=== PATIENT | female | born 1965 | race Caucasian/White ===

== ENCOUNTER → 2016-06-01 | Outpatient (CLI) | payer OTHER ==
[~2016-06-01] MED LIST: ALBUAER19 INH; BUPR-102 PO; CLIN300C2 PO; DOXY100C76 PO; HYDR-5688 PO; LINA1CAP2 PO; MOME200A INH; OXGN; PRVHFAIN INH; SPRIN/30 INH; TIOTCAP INH; TOPI200T14 PO
--- NOTE | 2016-06-01 10:18 | DIAGNOSTIC IMAGING REPORT ---
TWO VIEW CHEST CLINICAL HISTORY: Cough. Lung cancer. FINDINGS: PA and lateral chest radiographs are compared to study dated 08/07/2015 and correlated with chest CT dated 08/13/2015. The PA view is degraded by patient rotation. The cardiomediastinal silhouette is unremarkable. Emphysema and chronic interstitial thickening is identified. There are postoperative changes from right-sided pulmonary resection, with volume loss in the right lung and hyperexpansion of the left lung. A large calcified granuloma in the right lower lung is unchanged. There is no airspace consolidation, pleural effusion, or pneumothorax. The skeletal structures are osteopenic. The bony thorax appears intact. An IVC filter is partially imaged in the upper abdomen. IMPRESSION: 1. No active disease in the chest. 2. Emphysema and postoperative changes from right-sided pulmonary resection. This is similar to previous. Electronically signed by: David Veronica M.D. 06/01/2016 10:16 AM Dictated Date/Time: 06/01/2016 10:14 AM
== END | disposition home or self-care (01) ==
LOC: C.RAD1850 10:01
PROVIDERS: ATTEND Internal Medicine
DX: R05 Cough (principal)

== ENCOUNTER → 2016-06-17 | Outpatient (CLI) | payer OTHER ==
--- NOTE | 2016-06-17 13:07 | DIAGNOSTIC IMAGING REPORT ---
FUSION CT SINUSES W/O CLINICAL HISTORY: Nasal septal deviation. Terminal hypertrophy. COMPARISON STUDY: No previous studies for comparison. FINDINGS: There are postsurgical changes of a left frontotemporal craniotomy. There is subjacent encephalomalacia with compensatory dilatation of the left lateral ventricle. The mastoid air cells appear symmetrically aerated. The middle ear cavities appear symmetrically aerated. There are no air-fluid levels to indicate acute sinusitis. There is no evidence of significant mucosal thickening within the maxillary sphenoid ethmoid and frontal sinuses. There are tiny bilateral Jessica cells. The ostiomeatal units are patent bilaterally. There is mild nasal septal deviation to the right. Each olfactory fossa is a depth of 5 mm. There is no supraorbital pneumatization. The lamina papyracea appears intact. The frontoethmoidal recesses appear intact. IMPRESSION: 1. Mild nasal septal deviation to the right 2. No evidence of significant mucosal disease 3. The ostiomeatal units are patent bilaterally 4. Postsurgical changes of a left frontotemporal craniotomy with subjacent encephalomalacia and compensatory dilatation of the left lateral ventricle Electronically signed by: Kalia Ashton M.D. 06/17/2016 1:05 PM Dictated Date/Time: 06/17/2016 12:59 PM
== END | disposition home or self-care (01) ==
LOC: C.CTS 12:34
DX: J34.2 Deviated nasal septum (principal); J34.3 Hypertrophy of nasal turbinates

== ENCOUNTER → 2016-07-22 | Outpatient (CLI) | payer OTHER ==
--- NOTE | 2016-07-22 07:58 | DIAGNOSTIC IMAGING REPORT ---
CHEST CT WITHOUT CONTRAST CT DOSE: 171.85 mGycm HISTORY: Lung carcinoma C34.90 Adenocarcinoma of lung TECHNIQUE: Multiaxial CT images of the chest were performed without contrast. COMPARISON: 08/13/2015 FINDINGS: Unchanged CT of the chest. Baseline emphysematous change. Postoperative changes consistent with a right upper lobectomy. Minimal post procedural parenchymal scarring considered stable. Calcified granuloma midlung on the right unchanged. No new or interval finding. No additional parenchymal nodularity. No significant hilar or mediastinal adenopathy within limitations of an unenhanced scan. IMPRESSION: 1. Stable evaluation of the chest with no change from the prior study. 2. Unchanging postoperative and emphysematous change. Electronically signed by: Jian Carrasquillo M.D. 07/22/2016 7:56 AM Dictated Date/Time: 07/22/2016 7:53 AM
== END | disposition home or self-care (01) ==
LOC: C.CTS 07:24
PROVIDERS: ATTEND Internal Medicine Pulmonary Disease
DX: C34.90 Malignant neoplasm of unspecified part of unspecified bronchus or lung (principal)

== ENCOUNTER → 2016-08-07 | Outpatient (CLI) | payer OTHER ==
[2016-08-07 12:37] LABS: BASO % 0.6 %; BASO ABS # 0.05 K/uL (0-0.2); COMPLETE YES; EOS % 1.3 %; HEMATOCRIT 41.1 % (37-47); IG% 0.2 %; LYMPH % 20.4 %; LYMPH ABS # 1.77 K/uL (1.2-3.4); MEAN CELL VOLUME 87.1 fL (80-100); MEAN CORPUSCULAR HEMOGLOBIN 29.4 pg (25-34); MEAN CORPUSCULAR HGB CONC 33.8 g/dl (32-36); MEAN PLATELET VOLUME 10.2 fL (7.4-10.4); MONO % 7.2 %; NEUT % 70.3 %; PLATELET COUNT 220 K/uL (130-400); RED BLOOD COUNT 4.72 M/uL (4.2-5.4); WHITE BLOOD COUNT 8.69 K/uL (4.8-10.8)
[2016-08-07 12:46] LABS: BLOOD UREA NITROGEN 10 mg/dl (7-18); BUN/CREATININE RATIO 11.2 (10-20); CALCIUM 9.4 mg/dl (8.5-10.1); CARBON DIOXIDE 21 mmol/L (21-32); CHLORIDE 109 mmol/L (98-107); CREATININE 0.89 mg/dl (0.60-1.20); GLUCOSE 93 mg/dl (70-99); SODIUM 140 mmol/L (136-145)
[2016-08-07 12:56] LABS: ALB/GLOB RATIO 1.3 (0.9-2); ALKALINE PHOSPHATASE 59 U/L (45-117); ALT/SGPT 20 U/L (12-78); AST/SGOT 12 U/L (15-37); CHOLESTEROL 222 mg/dl (0-200); CHOLESTEROL/HDL RATIO 2.5; HDL CHOLESTEROL 88 mg/dl; LDL CHOLESTEROL CALCULATED 119 mg/dl; THYROID STIMULATING HORMONE 0.438 uIu/ml (0.300-4.500); TRIGLYCERIDES 74 mg/dl (0-150); VERY LOW DENSITY LIPOPROT CALC 15 mg/dl
== END | disposition home or self-care (01) ==
LOC: C.LABBFT 09:03
PROVIDERS: ATTEND Internal Medicine
DX: Z11.59 Encounter for screening for other viral diseases (principal); J44.9 Chronic obstructive pulmonary disease, unspecified; I69.359 Hemiplegia and hemiparesis following cerebral infarction affecting unspecified side

== ENCOUNTER 2016-09-13 17:35 | Emergency (ER) | payer OTHER ==
[~2016-09-13] VITALS: Ht 157.5 cm; Wt 57.0 kg
[~2016-09-13 17:35] MED LIST changes: -CLIN300C2 PO; -DOXY100C76 PO; -HYDR-5688 PO; -MOME200A INH; -PRVHFAIN INH; -SPRIN/30 INH
[2016-09-13 17:42] VITALS: TEMP 36.8; Ht 157.5 cm; Wt 57.0 kg
[2016-09-13] MEDS ORDERED: PRVHFAIN INH (18:07)
[2016-09-13] MEDS ORDERED: SPRIN/30 INH (18:07)
[2016-09-13] MEDS ORDERED: MOME200A INH (18:07)
[2016-09-13] MEDS ORDERED: CLINDAMYCIN HCL 150 MG CAP PO ONE (18:15)
[2016-09-13] MEDS ORDERED: HYDROCODONE/ACETAMOPHEN 5/325MG TAB PO ONE (18:15)
[2016-09-13] MEDS ORDERED: HYDR-5688 PO (18:19)
[2016-09-13] MEDS ORDERED: CLIN300C2 PO (18:19)
--- NOTE | 2016-09-13 18:21 | EMERGENCY ROOM VISIT NOTE ---
ED Visit Note First contact with patient: 17:49 Chief Complaint: Dental Pain History of Present Illness: This patient is a 51-year-old female who presents to the Emergency Department by private vehicle for evaluation of their dental pain. Patient believes the pain is arising from a broken tooth which they report developed a few days ago. They describe the pain as constant and they now report radiation to the jaw. They have tried [id number] medication for the pain minimal relief of symptoms. They report increased pain with eating and drinking. Patient rates her current discomfort as a 10/10. The patient does have a dentist appointment set up at the end of September. Patient currently denies any associated fevers, chills, visual disturbances, neck pain/stiffness, or trismus. They report no drainage from the tooth. Patient is not a current smoker. Medications: Reviewed and discussed with the patient. Allergies: Multiple allergies listed above. PMH: No pertinent past mental history. SHx: Patient is a 51-year-old female who lives locally. ROS: All pertinent positive and negative review of systems are appropriately documented in the History of Present Illness. Physical Exam: VITAL SIGNS Vital signs and nursing notes were reviewed. GENERAL 51 -year-old female appearing her stated age who is in no acute distress. Communicates well with provider and answers questions appropriately. HEAD Normocephalic, Atraumatic. EYES PERRL with EOMI bilaterally. EARS No deformities of external structures noted on gross examination bilaterally. No pain elicited with palpation of the tragus bilaterally. External auditory canals without discharge or otorrhea. Tympanic membranes pearly kim without retraction or bulging. NOSE Midline and without cyanosis. No epistaxis or purulent drainage noted. Septum midline without deviation or septal hematoma noted. MOUTH/OROPHARYNX Without perioral cyanosis. Buccal mucosa pink and moist and without leukoplakia. Tongue midline with equal elevation of palate bilaterally. No tonsillar hypertrophy, erythema, or exudates noted. Poor dentition noted. The LEFT 2nd molar tooth is carious with a fracture to the LEFT lower jaw. Surrounding gums erythematous and edematous without discharge. Exquisite tenderness to palpation of affected tooth. No trismus. No fluctuance to palpation or active drainage appreciated. NECK Neck with FROM. Supple to palpation. No lymphadenopathy noted. No nuchal rigidity. ED Course: Patient was seen and evaluated by myself. It was discussed with the patient at great length that the Emergency Department is not an appropriate place for continued treatment of dental pain issues. Patient acknowledges understanding. Patient was provided initial dose of [place] and Cipro while in the Emergency Department. I did check with the pharmacist. There is red dye and the capsule. I did review this with the patient and her son. They are uncertain of her allergy. They want to try the antibiotic and then stop it if she has a rash. They report that her initial allergy to red dye was after an MRI. Patient will be placed on a course of clindamycin and [place]. Patient was educated on worrisome symptoms for return visit to the Emergency Department. Patient was discharged to home afebrile and in good condition. Impression: Odontalgia Discharge Instructions: You have been treated in the Emergency Department for Dental Pain. You have received pain medicine in the emergency department which impairs your ability to operate a vehicle. It is illegal for you to drive after receiving these medicines. You have been prescribed [place] to be used for pain control. This is a narcotic medication. You cannot drive or consume alcohol while on this medicine. This medicine should only be used for pain that cannot be controlled with over-the- counter pain medicines. You were prescribed Cleocin to be taken as prescribed. This is an antibiotic. All antibiotics have the potential to cause diarrhea. Stop this medication and contact a medical provider if you were to develop any significant adverse side effects including: wheezing, shortness of breath, passing out, vomiting, or a diffuse rash. Always take antibiotics as directed and COMPLETE the ENTIRE course regardless of the improvement of your symptoms. For pain control, you can use the following stkl-ehf-[id number] medicines (if >12 yo): - Regular strength (325mg/tab) Tylenol (acetaminophen) 2 tabs every 4-6 hours as needed. Do not exceed 12 tablets in a 24 hour period. Avoid taking more than 4 grams (4000 mg) of Tylenol per day. This includes any other sources of acetaminophen you may take on a regular basis. - Regular strength (200 mg/tab) Advil (ibuprofen) 1-2 tabs every 4-6 hours as needed. Do not exceed a dose of 3200 mg per day. Refrain from smoking cigarettes or using chewing tobacco until you have been evaluated by your dentist. Keeping beverages lukewarm and consuming soft foods can decrease your pain. Warm compresses over the affected area may offer some relief. You MUST seek evaluation of your dental pain by a dentist following your visit to the Emergency Department. The Emergency Department is not capable of treating dental issues long-term. You should call your dentist as soon as possible to make an appointment for evaluation of your dental pain. Local Dentist accepting patients: Dr. Derick Briceño, DMD [address] [facility] [address] [place] [phone] Return to the emergency department if you develop the following symptoms despite treatment course outlined above: fever, intractable pain, increased redness, swelling, or purulent discharge. Problem List Medical Problems: (1) Acute intracerebral hemorrhage Status: Chronic (2) Anorexia Status: Chronic (3) Bilateral tubal ligation Status: Resolved (4) Chronic obstructive lung disease Status: Chronic (5) Constipation Status: Resolved (6) D-dimer, elevated Status: Resolved (7) Dehydration Status: Resolved (8) DVT (deep venous thrombosis) Status: Chronic (9) Headache Status: Chronic (10) History of intracranial hemorrhage Status: Chronic (11) Intracerebral hematoma Status: Resolved (12) Intracerebral hematoma Status: Resolved (13) Malnourished Status: Chronic (14) sporadic nerve in neck Status: Resolved Surgical Problems: (1) Olean filter in place Status: Chronic Current/Historical Medications Scheduled Clindamycin Hcl (Cleocin), 300 MG PO QID Linaclotide (Linzess), 290 MCG PO DAILY Mometasone Furoate-Formoterol (Dulera 200/5 Mcg), 2 PUFFS INH BID Tiotropium [place] (Spiriva Handihaler), 2 PUFFS INH DAILY Topiramate (Topamax), 200 MG PO BID Scheduled PRN Albuterol (Ventolin Hfa), 2 PUFFS INH QID PRN for SOB/Wheezing Hydrocodone/Acetaminophen 5MG/325MG ([place] 5MG/325MG), 1-2 TABLET PO Q4H PRN for Pain Allergies Coded Allergies: Guaifenesin (Verified Allergy, Severe, HIVES, TAKEN AT SAME TIME AUGMENTIN, 03/29/13) Penicillins (Verified Allergy, Severe, HIVES, TAKEN AT SAME TIME ENTEX , 03/29/13) Phenylephrine (Verified Allergy, Severe, HIVES, TAKEN AT SAME TIME AUGMENTIN, 03/29/13) Phenylpropanolamine (Verified Allergy, Severe, HIVES, TAKEN AT SAME TIME AUGMENTIN, 03/29/13) Iodinated Contrast Media (Verified Allergy, Intermediate, HIVES, 08/30/12) Lubiprostone (Verified Allergy, Intermediate, HIVES, 03/29/13) Oxcarbazepine (Verified Allergy, Intermediate, HIVES, 03/29/13) Red Dye (Verified Allergy, Intermediate, HIVES, 03/29/13) Varenicline (Verified Allergy, Intermediate, HIVES, 03/29/13) Yellow Dye (Verified Allergy, Intermediate, HIVES, 03/29/13) Sulfa Antibiotics (Verified Allergy, Mild, "SULFA DRUGS": GI UPSET, ) Sulfamethoxazole (Verified Allergy, Mild, 08/30/12) Trimethoprim (Verified Allergy, Mild, 08/30/12) Vital Signs Date Time Temp Pulse Resp B/P Pulse Ox O2 Delivery O2 Flow Rate FiO2 09/13/16 18:29 80 18 114/66 100 09/13/16 17:42 36.8 72 18 117/63 100 Room Air Medications Administered Medications (Trade) Dose Ordered Sig/Alicia Route Start Time Stop Time Status Last Admin Dose Admin Clindamycin HCl (Cleocin Cap) 300 mg NOW ONCE PO 09/13/16 18:15 09/13/16 18:16 DC 09/13/16 18:26 300 MG Acetaminophen/ Hydrocodone Bitart ([place] 5/325 Tab) 1 tab NOW ONCE PO 09/13/16 18:15 09/13/16 18:16 DC 09/13/16 18:26 1 TAB Departure Information Impression Primary Impression: Odontalgia Dispostion Home / Self-Care Condition GOOD Prescriptions Clindamycin Hcl (CLEOCIN) 300 Mg Cap 300 MG PO QID for 10 Days, #40 CAP Prov: Armond Rutherford PA-C 09/13/16 Hydrocodone/Acetaminophen 5MG/325MG ([place] 5MG/325MG) Tab 1-2 TABLET PO Q4H Y for Pain, #8 TAB For Initial Treatment Prov: Armond Rutherford PA-C 09/13/16 Referrals Andrew Rodriguez M.D. (PCP) Patient Instructions My [facility] Additional Instructions You have been treated in the Emergency Department for Dental Pain. You have received pain medicine in the emergency department which impairs your ability to operate a vehicle. It is illegal for you to drive after receiving these medicines. You have been prescribed [place] to be used for pain control. This is a narcotic medication. You cannot drive or consume alcohol while on this medicine. This medicine should only be used for pain that cannot be controlled with over-the- counter pain medicines. You were prescribed Cleocin to be taken as prescribed. This is an antibiotic. All antibiotics have the potential to cause diarrhea. Stop this medication and contact a medical provider if you were to develop any significant adverse side effects including: wheezing, shortness of breath, passing out, vomiting, or a diffuse rash. Always take antibiotics as directed and COMPLETE the ENTIRE course regardless of the improvement of your symptoms. For pain control, you can use the following bksw-xju-mhuicsw medicines (if >12 yo): - Regular strength (325mg/tab) Tylenol (acetaminophen) 2 tabs every 4-6 hours as needed. Do not exceed 12 tablets in a 24 hour period. Avoid taking more than 4 grams (4000 mg) of Tylenol per day. This includes any other sources of acetaminophen you may take on a regular basis. - Regular strength (200 mg/tab) Advil (ibuprofen) 1-2 tabs every 4-6 hours as needed. Do not exceed a dose of 3200 mg per day. Refrain from smoking cigarettes or using chewing tobacco until you have been evaluated by your dentist. Keeping beverages lukewarm and consuming soft foods can decrease your pain. Warm compresses over the affected area may offer some relief. You MUST seek evaluation of your dental pain by a dentist following your visit to the Emergency Department. The Emergency Department is not capable of treating dental issues long-term. You should call your dentist as soon as possible to make an appointment for evaluation of your dental pain. Local Dentist accepting patients: Dr. Derick Briceño, DMD [address] [facility] [address] [address] [place], [place] [phone] Return to the emergency department if you develop the following symptoms despite treatment course outlined above: fever, intractable pain, increased redness, swelling, or purulent discharge.
[2016-09-13 18:29] VITALS: BP 114/66; PULSE 80; O2SAT 100
[2016-09-21] MEDS ORDERED: DOXY100C76 PO (12:01)
== END 2016-09-13 18:30 | disposition home or self-care (01) ==
LOC: C.EDB 17:37 → C.EDD 18:30
DX: K08.89 Other specified disorders of teeth and supporting structures (principal); J44.9 Chronic obstructive pulmonary disease, unspecified; Z79.899 Other long term (current) drug therapy; Z87.828 Personal history of other (healed) physical injury and trauma

== ENCOUNTER 2016-09-14 09:59 | Inpatient (IN) | payer OTHER ==
[~2016-09-14] VITALS: Ht 157.5 cm; Wt 57.8 kg
[~2016-09-14 09:59] MED LIST changes: -ALBUAER19 INH; -BUPR-102 PO; +CLIN300C2 PO; +HYDR-5688 PO; +MOME200A INH; -OXGN; +PRVHFAIN INH; +SPRIN/30 INH; -TIOTCAP INH
[2016-09-14] MEDS ORDERED: SODIUM CHLORIDE 0.9% 1000ML 1,000 ML IV SCH (10:29)
[2016-09-14 10:58] LABS: HEMATOCRIT 37.8 % (37-47); MEAN CELL VOLUME 86.3 fL (80-100); MEAN CORPUSCULAR HEMOGLOBIN 29.5 pg (25-34); MEAN CORPUSCULAR HGB CONC 34.1 g/dl (32-36); MEAN PLATELET VOLUME 9.6 fL (7.4-10.4); PLATELET COUNT 205 K/uL (130-400); RED BLOOD COUNT 4.38 M/uL (4.2-5.4); WHITE BLOOD COUNT 15.18 K/uL (4.8-10.8)
--- NOTE | 2016-09-14 11:16 | DIAGNOSTIC IMAGING REPORT ---
CHEST ONE VIEW PORTABLE CLINICAL HISTORY: Stroke. COMPARISON STUDY: Chest CT July 22, 2016. FINDINGS: A calcified right lower lobe granuloma is noted. There are postsurgical findings consistent with a right upper lobectomy. This exam is mildly compromised by motion artifact. Severe emphysema is noted. There is no pneumothorax or pleural effusion. There is apparent right suprahilar opacity. IMPRESSION: Mild right suprahilar opacity. This may reflect a small area of pneumonia, atelectasis or normal vessels. Radiographic follow up is recommended. Electronically signed by: Suresh Bear M.D. 09/14/2016 11:14 AM Dictated Date/Time: 09/14/2016 11:12 AM
[2016-09-14 11:19] LABS: INR 1.1 (0.9-1.1); PARTIAL THROMBOPLASTIN RATIO 1.1; PROTHROMBIN TIME (PATIENT) 11.9 SECONDS (9.0-12.0)
--- NOTE | 2016-09-14 11:21 | EMERGENCY ROOM VISIT NOTE ---
History Report prepared by Fahadibkatharine: Adi Salcido Under the Supervision of: Dr. Marc Roberts M.D. First contact with patient: 10:29 Chief Complaint: STROKE SYMPTOMS Stated Complaint: STROKE SX Nursing Triage Summary: Per family patient awoke this am and was very confused, patient denies any pain or weakness. Payient does have history of previous cva in 2011. Patient seen here yesterday for dental pain. Patient c/o chills temp 37.2 Patient has no use of right arm from previous stroke History of Present Illness The patient is a 51 year old female who presents to the Emergency Room with complaints of persistent confusion noticed about 2 and a half hours ago by . The patient went to sleep at 8 pm last night. As per nursing staff notes, the patient's noticed the patient to be confused when she woke up this morning around 8 am. The patient also complains of a headache. She currently rates a pain intensity of 8/10. She is normally unable to move her right side secondary to a stroke occurring in 2011. The patient denies fevers, chills, chest pain, shortness of breath, abdominal pain, urinary symptoms, or any other complaints. Source of History: patient, nursing staff Onset: about 2 and a half hours ago Position: other (global) Symptom Intensity: 8/10 Quality: other (confusion) Timing: other (persistent) Associated Symptoms: + headache, No SOB, No abdominal pain, No chest pain, No chills, No fevers, No urinary symptoms Review of Systems See HPI for pertinent positives & negatives. A total of 10 systems reviewed and were otherwise negative. Past Medical & Surgical Medical Problems: (1) Acute intracerebral hemorrhage (2) Anorexia (3) Bilateral tubal ligation (4) Chronic obstructive lung disease (5) Constipation (6) D-dimer, elevated (7) Dehydration (8) DVT (deep venous thrombosis) (9) Headache (10) History of intracranial hemorrhage (11) Intracerebral hematoma (12) Intracerebral hematoma (13) [place] Upper Lobe Lung (14) Malnourished (15) Sec [place] Brain/Spine (16) Sepsis (17) sporadic nerve in neck Surgical Problems: (1) Compa filter in place Family History Hypertension Social History Smoking Status: Former Smoker Alcohol Use: occasionally Drug Use: none Marital Status: Housing Status: lives with significant other Occupation Status: unemployed Current/Historical Medications Scheduled Clindamycin Hcl (Cleocin), 300 MG PO QID Linaclotide (Linzess), 290 MCG PO DAILY Mometasone Furoate-Formoterol (Dulera 200/5 Mcg), 2 PUFFS INH BID Tiotropium [place] (Spiriva Handihaler), 2 PUFFS INH DAILY Topiramate (Topamax), 200 MG PO BID Scheduled PRN Albuterol (Ventolin Hfa), 2 PUFFS INH QID PRN for SOB/Wheezing Hydrocodone/Acetaminophen 5MG/325MG ([place] 5MG/325MG), 1-2 TABLET PO Q4H PRN for Pain Allergies Coded Allergies: Guaifenesin (Verified Allergy, Intermediate, HIVES, TAKEN AT SAME TIME AUGMENTIN, 09/14/16) Iodinated Diagnostic Agents (Verified Allergy, Intermediate, HIVES, ) Lubiprostone (Verified Allergy, Intermediate, HIVES, 03/29/13) Oxcarbazepine (Verified Allergy, Intermediate, HIVES, 03/29/13) Penicillins (Verified Allergy, Intermediate, HIVES, TAKEN AT SAME TIME ENTEX, 09/14/16) Phenylephrine (Verified Allergy, Intermediate, HIVES, TAKEN AT SAME TIME AUGMENTIN, 09/14/16) Phenylpropanolamine (Verified Allergy, Intermediate, HIVES, TAKEN AT SAME TIME AUGMENTIN, 09/14/16) Red Dye (Verified Allergy, Intermediate, HIVES, 03/29/13) Varenicline (Verified Allergy, Intermediate, HIVES, 03/29/13) Sulfamethoxazole (Verified Allergy, Mild, 08/30/12) Trimethoprim (Verified Allergy, Mild, 08/30/12) Sulfa Antibiotics (Verified Adverse Reaction, Mild, "SULFA DRUGS": GI UPSET, 09/14/16) Physical Exam Vital Signs Date Time Temp Pulse Resp B/P Pulse Ox O2 Delivery O2 Flow Rate FiO2 09/14/16 13:05 95 Room Air 09/14/16 12:30 98 18 100/64 95 Room Air 09/14/16 11:17 100 17 94/61 97 Room Air 09/14/16 10:15 106 09/14/16 10:10 100 Room Air 09/14/16 10:02 36.9 111 18 98/59 97 Room Air Physical Exam GENERAL: Patient is a healthy-appearing well-nourished HEAD: Normocephalic atraumatic EYES: Ocular movements intact pupils equal and react to light OROPHARYNX mucous membranes are moist no exudates present no erythema or edema present NECK: Supple no nuchal rigidity CHEST: Good equal expansion LUNGS: Clear and equal to auscultation CARDIAC: Normal S1 and S2 ABDOMEN: Soft nontender no guarding BACK: No CVA tenderness EXTREMITIES: No pain upon palpation normal muscle strength in all groups no clubbing cyanosis or edema NEURO: Patient is confused, unable to answer questions appropriately. Cranial Nerves 2-12 grossly intact. Unable to move right arm and right leg which is normal for her. Medical Decision & Procedures ER Provider Diagnostic Interpretation: X-ray results as stated below per interpretation by me and the radiologist: CHEST ONE VIEW PORTABLE CLINICAL HISTORY: Stroke. COMPARISON STUDY: Chest CT July 22, 2016. FINDINGS: A calcified right lower lobe granuloma is noted. There are postsurgical findings consistent with a right upper lobectomy. This exam is mildly compromised by motion artifact. Severe emphysema is noted. There is no pneumothorax or pleural effusion. There is apparent right suprahilar opacity. IMPRESSION: Mild right suprahilar opacity. This may reflect a small area of pneumonia, atelectasis or normal vessels. Radiographic follow up is recommended. Electronically signed by: Suresh Bear M.D. 09/14/2016 11:14 AM Dictated Date/Time: 09/14/2016 11:[address] results as stated below per my review and radiologist interpretation: HEAD CT NONCONTRAST CT DOSE: 638.56 mGycm HISTORY: Headache. Confusion. Stroke TECHNIQUE: Multiaxial CT images of the head were performed without the use of intravenous contrast. Automated exposure control was utilized for this study. Comparison: Head CT 06/12/2013. Findings: The paranasal sinuses and mastoid air cells are clear. Left frontotemporal craniotomy is again noted. No change in the encephalomalacia within the left basal ganglia and left frontotemporal region. This is consistent with old infarct/postoperative change. There is no mass, hematoma, or acute infarct. Impression: No significant change compared to the prior study. No acute intracranial abnormality. Electronically signed by: Nicko Schulte M.D. 09/14/2016 11:18 AM Dictated Date/Time: 09/14/2016 11:14 AM Laboratory Results 09/14/16 10:29 Red Blood Count 4.38, Mean Corpuscular Volume 86.3, Mean Corpuscular Hemoglobin 29.5, Mean Corpuscular Hemoglobin Concent 34.1, Mean Platelet Volume 9.6, Neutrophils (%) (Auto) 86.4, Lymphocytes (%) (Auto) 4.8, Monocytes (%) (Auto) 8.4, Eosinophils (%) (Auto) 0.1, Basophils (%) (Auto) 0.1, Neutrophils # (Auto) 13.12, Lymphocytes # (Auto) 0.73, Monocytes # (Auto) 1.28, Eosinophils # (Auto) 0.01, Basophils # (Auto) 0.01 09/14/16 10:29 Test 09/14/16 10:29 09/14/16 10:36 09/14/16 10:46 White Blood Count 15.18 K/uL (4.8-10.8) Red Blood Count 4.38 M/uL (4.2-5.4) Hemoglobin 12.9 g/dL (12.0-16.0) Hematocrit 37.8 % (37-47) Mean Corpuscular Volume 86.3 fL (80-100) Mean Corpuscular Hemoglobin 29.5 pg (25-34) Mean Corpuscular Hemoglobin Concent 34.1 g/dl (32-36) Platelet Count 205 K/uL (130-400) Mean Platelet Volume 9.6 fL (7.4-10.4) Neutrophils (%) (Auto) 86.4 % Lymphocytes (%) (Auto) 4.8 % Monocytes (%) (Auto) 8.4 % Eosinophils (%) (Auto) 0.1 % Basophils (%) (Auto) 0.1 % Neutrophils # (Auto) 13.12 K/uL (1.4-6.5) Lymphocytes # (Auto) 0.73 K/uL (1.2-3.4) Monocytes # (Auto) 1.28 K/uL (0.11-0.59) Eosinophils # (Auto) 0.01 K/uL (0-0.5) Basophils # (Auto) 0.01 K/uL (0-0.2) RDW Standard Deviation 44.7 fL (36.4-46.3) RDW Coefficient of Variation 14.2 % (11.5-14.5) Immature Granulocyte % (Auto) 0.2 % Immature Granulocyte # (Auto) 0.03 K/uL (0.00-0.02) Prothrombin Time 11.9 SECONDS (9.0-12.0) Prothromb Time International Ratio 1.1 (0.9-1.1) Activated Partial Thromboplast Time 28.0 SECONDS (21.0-31.0) Partial Thromboplastin Ratio 1.1 Anion Gap 9.0 mmol/L (3-11) Est Creatinine Clear Calc Drug Dose 59.2 ml/min Estimated GFR () 87.0 Estimated GFR (Non- 75.0 BUN/Creatinine Ratio 14.1 (10-20) Calcium Level 8.8 mg/dl (8.5-10.1) Magnesium Level 1.7 mg/dl (1.8-2.4) Total Creatine Kinase 124 U/L (26-192) Creatine Kinase MB 0.9 ng/ml (0.5-3.6) Creatine Kinase MB Ratio 0.7 (0-3.0) Troponin I < 0.015 ng/ml (0-0.045) Bedside Glucose 94 mg/dl (70-90) Bedside Prothrombin Time INR 1.1 (0.9-1.1) Labs reviewed by ED physician. Medications Administered Medications (Trade) Dose Ordered Sig/Alicia Route Start Time Stop Time Status Last Admin Dose Admin Sodium Chloride 1,000 ml @ 50 mls/hr Q20H IV 09/14/16 10:29 09/14/16 15:30 DC 09/14/16 11:17 50 MLS/HR Sodium Chloride 1,000 ml @ 999 mls/hr Q1H1M STAT IV 09/14/16 11:36 09/14/16 12:36 DC 09/14/16 11:58 999 MLS/HR Sodium Chloride 500 ml @ 999 mls/hr Q31M STAT IV 09/14/16 11:36 09/14/16 12:06 DC 09/14/16 12:53 999 MLS/HR Sodium Chloride (Nss 150ml) 150 ml @ 999 mls/hr Q10M STAT IV 09/14/16 11:36 09/14/16 11:45 DC 09/14/16 12:53 999 MLS/HR Ceftriaxone Sodium (Rocephin Inj) 1 gm NOW STAT IV 09/14/16 11:36 09/14/16 11:39 DC 09/14/16 12:07 1 GM Levofloxacin 750 mg 750 mg NOW STAT IV 09/14/16 11:36 09/14/16 11:39 DC 09/14/16 11:58 750 MG Vancomycin HCl/ Sodium Chloride (Vancomycin Inj/ Nss 250ml) 270 ml @ 125 mls/hr NOW STAT IV 09/14/16 11:36 09/14/16 13:45 DC 09/14/16 13:28 125 MLS/HR Potassium Chloride (Klor-Con Tab) 40 meq NOW STAT PO 09/14/16 13:12 09/14/16 15:33 DC 09/14/16 16:20 40 MEQ ECG Indication: other (Confusion) Rate (beats per minute): 98 Rhythm: normal sinus Findings: no acute ischemic change, no ectopy ED Course 1029: Past medical records reviewed. The patient was evaluated in room C06. A complete history and physical examination was performed. Sodium Chloride 1000 ml @ 50 mls/hr IV 1136: Vancomycin HCl 1000 mg/Sodium Chloride 270 ml @ 125 mls/hr IV, Levofloxacin 750 mg IV, Rocephin Inj 1 gm IV, Sodium Chloride 150 ml @ 999 mls/ hr IV, Sodium Chloride 500 ml @ 999 mls/hr IV, Sodium Chloride 1000 ml @ 999 mls /hr IV 1141: Upon reexamination the patient is resting comfortably. I discussed results and treatment plan with the patient. She verbalizes agreement and understanding. I spoke with Dr. Parker from the [facility] Hospitalist Service. The patient will be evaluated for further management. Medical Decision Differential diagnosis: Etiologies such as metabolic, infection, hypoglycemia, electrolyte abnormalities , cardiac sources, intracerebral event, toxicologic, neurologic, as well as others were entertained. This is a 51-year-old female who presents emergency department complaining of altered mental status. The patient appears to have a pneumonia on her chest x- ray does have an elevation in her white blood count. She arrives tachycardic febrile and hypotensive. For this reason she was given 30 mL's per kilogram of normal saline bolus. In addition she was also pancultured and started on antibiotics. I did discuss the case with the hospitalist service who agreed to admit the patient. Patient family were in agreement with the treatment plan. Consults Time Called: 1140 Consulting Physician: Dr. Parker from the [facility] Hospitalist Service Returned Call: [address] Parker from the [facility]. Impression Primary Impression: Sepsis Additional Impression: Pneumonia Critical Care I have personally spent greater than 30 minutes of critical care time in the direct management of this patient. This includes bedside care, interpretation of diagnostic studies, and testing, discussion with consultants, patient, and family members, and other required patient management activities. This 30 minutes is in excess of all separately billable procedures. Scribe Attestation The scribe's documentation has been prepared under my direction and personally reviewed by me in its entirety. I confirm that the note above accurately reflects all work, treatment, procedures, and medical decision making performed by me. Departure Information Dispostion Being Evaluated By Hospitalist Referrals Andrew Rodriguez M.D. (PCP) Patient Instructions My [facility] Problem Qualifiers Primary Impression: Sepsis Sepsis type: sepsis due to unspecified organism Qualified Codes: A41.9 - Sepsis, unspecified organism Additional Impression: Pneumonia Pneumonia type: due to unspecified organism Laterality: unspecified laterality Lung location: unspecified part of lung Qualified Codes: J18.9 - Pneumonia, unspecified organism
[2016-09-14 11:22] LABS: BLOOD UREA NITROGEN 13 mg/dl (7-18); BUN/CREATININE RATIO 14.1 (10-20); CALCIUM 8.8 mg/dl (8.5-10.1); CARBON DIOXIDE 21 mmol/L (21-32); CHLORIDE 112 mmol/L (98-107); CREATININE 0.89 mg/dl (0.60-1.20); GLUCOSE 99 mg/dl (70-99); POTASSIUM 3.2 mmol/L (3.5-5.1); SODIUM 142 mmol/L (136-145)
[2016-09-14 11:23] LABS: BASO % 0.1 %; BASO ABS # 0.01 K/uL (0-0.2); COMPLETE YES; EOS % 0.1 %; IG% 0.2 %; LYMPH % 4.8 %; LYMPH ABS # 0.73 K/uL (1.2-3.4); MONO % 8.4 %; NEUT % 86.4 %
[2016-09-14 11:27] LABS: CKMB/CK RATIO 0.7 (0-3.0)
[2016-09-14] MEDS ORDERED: SODIUM CHLORIDE 0.9% 500ML 500 ML IV STA (11:36)
[2016-09-14] MEDS ORDERED: LEVAQUIN 750MG / 150ML D5W IV STA (11:36)
[2016-09-14] MEDS ORDERED: CEFTRIAXONE SOD INJ 1 GM ADDVIAL IV STA (11:36)
[2016-09-14] MEDS ORDERED: SODIUM CHLORIDE 0.9% 150ML 150 ML IV STA (11:36)
[2016-09-14] MEDS ORDERED: VANCOMYCIN INJ 1,000 MG in SODIUM CHLORIDE 0.9% 250ML 250 ML IV STA (11:36)
[2016-09-14] MEDS ORDERED: SODIUM CHLORIDE 0.9% 1000ML 1,000 ML IV STA (11:36)
[2016-09-14 13:05] VITALS: O2SAT 95; Ht 157.5 cm; Wt 57.8 kg
[2016-09-14] MEDS ORDERED: POTASSIUM CHLORIDE 20 MEQ TABCR PO STA (13:12)
[2016-09-14] MEDS ORDERED: MAGNESIUM SULFATE 1GM / D5W 1 GM BAG IV STA (13:12)
[2016-09-14] MEDS ORDERED: ALBUTEROL HFA 8 GM INHALER INH PRN (13:15)
[2016-09-14] MEDS ORDERED: HYDROCODONE/ACETAMOPHEN 5/325MG TAB PO PRN (13:15)
[2016-09-14] MEDS ORDERED: ONDANSETRON INJ 2 MG/ML 2 ML VIAL IV PRN (13:15)
[2016-09-14] MEDS ORDERED: POLYETHYLENE (MIRALAX) 17 GM PACK PO PRN (13:15)
[2016-09-14] MEDS ORDERED: ALUMINUM/MAGNESIUM/SIMETH (MAALOX MAX) 30 ML UDC PO PRN (13:15)
[2016-09-14] MEDS ORDERED: MAGNESIUM HYDROXIDE SUSP 30 ML UDC PO PRN (13:15)
--- NOTE | 2016-09-14 13:36 | History and Physical ---
History & Physical Date & Time of Service: Sep 14, 2016 at 12:45 Chief Complaint: Stroke Sx Primary Care Physician: Andrew Rodriguez M.D. History of Present Illness Source: patient, spouse 51yo female presents with 24 hours of simply "not feeling well." She actually came to the ER last night due to a toothache. Tooth was left side of the jaw (mandibular). She was told she had a broken tooth. When she left the ER she states "I didn't feel right". Sent home on clindamycin but did not have chance to fill it last pm. After arriving home she went right to bed due to feeling poorly (fatigue, etc). Had low-grade fever yesterday. Had chills last night. No significant cough or sob. No dysuria. Tooth is still bothering her today. This am upon awakening her noted she was confused. Some headache this morning - "all over" - but denies ANY neck pain. Some nasal congestion and sinus congestion over the maxillary areas. No recent travel. Denies h/o heart murmur. Past Medical/Surgical History PMH: 1. Acute intracerebral hemorrhage - 2012 (left thalamic bleed) 2. COPD 3. h/o DVT 4. cognitive dysfunction following #1 5. h/o hyperlipidemia 6. 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) Immunizations History of Influenza Vaccine: Unknown Influenza Vaccine Date: Mar 02, 2013 History of Tetanus Vaccine?: Unknown History of Pneumococcal: Unknown History of Hepatitis B Vaccine: Unknown Multi-Drug Resistant Organisms History of MDRO: No Allergies Coded Allergies: Guaifenesin (Verified Allergy, Intermediate, HIVES, TAKEN AT SAME TIME AUGMENTIN, 09/14/16) Iodinated Diagnostic Agents (Verified Allergy, Intermediate, HIVES, ) Lubiprostone (Verified Allergy, Intermediate, HIVES, 03/29/13) Oxcarbazepine (Verified Allergy, Intermediate, HIVES, 03/29/13) Penicillins (Verified Allergy, Intermediate, HIVES, TAKEN AT SAME TIME ENTEX, 09/14/16) Phenylephrine (Verified Allergy, Intermediate, HIVES, TAKEN AT SAME TIME AUGMENTIN, 09/14/16) Phenylpropanolamine (Verified Allergy, Intermediate, HIVES, TAKEN AT SAME TIME AUGMENTIN, 09/14/16) Red Dye (Verified Allergy, Intermediate, HIVES, 03/29/13) Varenicline (Verified Allergy, Intermediate, HIVES, 03/29/13) Sulfamethoxazole (Verified Allergy, Mild, 08/30/12) Trimethoprim (Verified Allergy, Mild, 08/30/12) Sulfa Antibiotics (Verified Adverse Reaction, Mild, "SULFA DRUGS": GI UPSET, 09/14/16) Home Medications Scheduled Clindamycin Hcl (Cleocin), 300 MG PO QID Linaclotide (Linzess), 290 MCG PO DAILY Mometasone Furoate-Formoterol (Dulera 200/5 Mcg), 2 PUFFS INH BID Tiotropium [place] (Spiriva Handihaler), 2 PUFFS INH DAILY Topiramate (Topamax), 200 MG PO BID Scheduled PRN Albuterol (Ventolin Hfa), 2 PUFFS INH QID PRN for SOB/Wheezing Hydrocodone/Acetaminophen 5MG/325MG ([place] 5MG/325MG), 1-2 TABLET PO Q4H PRN for Pain Review of Systems Constitutional: + chills, + fatigue, + fever, No weight loss Eyes: No worsening of vision ENT: + dental problems, No sore throat Respiratory: No cough, No dyspnea at rest Cardiovascular: No chest pain Abdomen: No GI bleeding, No diarrhea, No nausea, No pain, No vomiting Musculoskeletal: + joint pain, + muscle pain Genitourinary - Female: No dysuria, No hematuria Neurologic: + memory loss, + numbness/tingling (right arm/leg), + problem reported (chronic headaches), + weakness (chronic - right arm and leg) Psychiatric: + anxiety, + depression symptoms Hematologic / Lymphatic: + abnormal bleeding/bruising (chronic, on legs) Integumentary: No rash Physical Exam Vital Signs Date Time Temp Pulse Resp B/P Pulse Ox O2 Delivery O2 Flow Rate FiO2 09/14/16 11:17 100 17 94/61 97 Room Air 09/14/16 10:15 106 09/14/16 10:10 100 Room Air 09/14/16 10:02 36.9 111 18 98/59 97 Room Air General Appearance: no apparent distress, + thin, + pertinent finding (looks sick but nontoxic; able to give full history) Head: normocephalic, atraumatic, + pertinent finding (scar on left of forehead) Eyes: PERRL, EOMI ENT: TMs normal, + pertinent finding (very poor dentition, multiple dental fillings; there is a molar on the left mandibular side with cracked tooth and partial loss of filling but no obvious abscess even with palpation of the gingival line) Neck: supple (NO MENINGISMUS OR RIGIDITY), no adenopathy, thyroid normal, no JVD Respiratory/Chest: lungs clear, normal breath sounds, no respiratory distress, no accessory muscle use Cardiovascular: no gallop, no murmur, normal peripheral pulses, + tachycardia Abdomen/GI: normal bowel sounds, non tender, soft, no organomegaly, no pulsatile mass Back: normal inspection Extremities/Musculoskelatal: no pedal edema Neurologic/Psych: alert, oriented x 3, + pertinent finding (contracture of RUE (severe); mild contracture of RLE; increased tone right side with hyper-reflexia ; reflexes 2+ on left; strength 5/5 LUE/LLE) Skin: no rash Diagnostics Laboratory Results Results Past 24 Hours Test 09/14/16 10:29 09/14/16 10:36 09/14/16 10:46 Range/Units White Blood Count 15.18 4.8-10.8 K/uL Red Blood Count 4.38 4.2-5.4 M/uL Hemoglobin 12.9 12.0-16.0 g/dL Hematocrit 37.8 37-47 % Mean Corpuscular Volume 86.3 80-100 fL Mean Corpuscular Hemoglobin 29.5 25-34 pg Mean Corpuscular Hemoglobin Concent 34.1 32-36 g/dl Platelet Count 205 130-400 K/uL Mean Platelet Volume 9.6 7.4-10.4 fL Neutrophils (%) (Auto) 86.4 % Lymphocytes (%) (Auto) 4.8 % Monocytes (%) (Auto) 8.4 % Eosinophils (%) (Auto) 0.1 % Basophils (%) (Auto) 0.1 % Neutrophils # (Auto) 13.12 1.4-6.5 K/uL Lymphocytes # (Auto) 0.73 1.2-3.4 K/uL Monocytes # (Auto) 1.28 0.11-0.59 K/uL Eosinophils # (Auto) 0.01 0-0.5 K/uL Basophils # (Auto) 0.01 0-0.2 K/uL RDW Standard Deviation 44.7 36.4-46.3 fL RDW Coefficient of Variation 14.2 11.5-14.5 % Immature Granulocyte % (Auto) 0.2 % Immature Granulocyte # (Auto) 0.03 0.00-0.02 K/uL Prothrombin Time 11.9 9.0-12.0 SECONDS Prothromb Time International Ratio 1.1 0.9-1.1 Activated Partial Thromboplast Time 28.0 21.0-31.0 SECONDS Partial Thromboplastin Ratio 1.1 Sodium Level 142 136-145 mmol/L Potassium Level 3.2 3.5-5.1 mmol/L Chloride Level 112 98-107 mmol/L Carbon Dioxide Level 21 21-32 mmol/L Anion Gap 9.0 3-11 mmol/L Blood Urea Nitrogen 13 7-18 mg/dl Creatinine 0.89 0.60-1.20 mg/dl Est Creatinine Clear Calc Drug Dose 59.2 ml/min Estimated GFR () 87.0 Estimated GFR (Non- 75.0 BUN/Creatinine Ratio 14.1 10-20 Random Glucose 99 70-99 mg/dl Calcium Level 8.8 8.5-10.1 mg/dl Total Creatine Kinase 124 26-192 U/L Creatine Kinase MB 0.9 0.5-3.6 ng/ml Creatine Kinase MB Ratio 0.7 0-3.0 Troponin I < 0.015 0-0.045 ng/ml Bedside Glucose 94 70-90 mg/dl Bedside Prothrombin Time INR 1.1 0.9-1.1 Microbiology Results 09/14/16 Blood Culture, Received Pending 09/14/16 Blood Culture, Received Pending Diagnostic Radiology CT head: Findings: The paranasal sinuses and mastoid air cells are clear. Left frontotemporal craniotomy is again noted. No change in the encephalomalacia within the left basal ganglia and left frontotemporal region. This is consistent with old infarct/postoperative change. There is no mass, hematoma, or acute infarct. Impression: No significant change compared to the prior study. No acute intracranial abnormality. CXR: FINDINGS: A calcified right lower lobe granuloma is noted. There are postsurgical findings consistent with a right upper lobectomy. This exam is mildly compromised by motion artifact. Severe emphysema is noted. There is no pneumothorax or pleural effusion. There is apparent right suprahilar opacity. IMPRESSION: Mild right suprahilar opacity. This may reflect a small area of pneumonia, atelectasis or normal vessels. Radiographic follow up is recommended. EKG EKG - my reading - NSR, no ST changes Impression Assessment and Plan 51yo female with prior h/o hemorrhagic stroke in 2012 and DVTs s/p IVC filter, baseline right sided hemiplegia, and COPD presenting with sepsis. 1. sepsis, borderline severe - * admit to telemetry * check lactate now * received 30cc/kg NS boluses in ER * NS with KCL at 200cc/hr x 1 liter THEN * D5NS with KCL at 150cc/hr thereafter * source for sepsis - dental infection vs right-sided pneumonia vs flu vs other * easily could be bacteremic from the dental issue; of note - head CT did not show sinusitis or abscess * follow cultures * clindamycin IV to cover the oral cavity * levaquin IV to cover the lungs * received IV vancomycin per the sepsis protocol; will continue this for 48 hours for broad-spectrum coverage * expand this regimen if necessary * send rapid flu test * await u/a and urine cx as well Of note - she has no symptoms/signs of meningitis on examination. 2. h/o COPD - not in exacerbation; continue home inhalers. 3. hypokalemia - replace PO and IV. Repeat BMP am. 4. hypomagnesemia - replace IV; repeat level am. 5. chronic headaches - continue topamax prophylaxis. 6. FEN - See #1 above re: fluids. Diet as tolerated (dental soft). BMP/mag am. 7. DVT proph - heparin BID; IVC filter is in place by history. 8. low-normal BPs - I reviewed several ER visits and multiple past hospital stays. Her baseline BP appears to be in the 90-95 systolic range, with occasional values 100-105. Thus, her current BPs are consistent with her BP over the last several years. Follow carefully. 9. h/o hemorrhagic stroke with resulting right-sided hemiplegia - patient's neuro status is at baseline; head CT unchanged. 10. question of right-sided community-acquired pneumonia - see #1 above; antibiotics and supportive care. Level of Care Telemetry Resuscitation Status FULL RESUSCITATION VTE Prophylaxis Risk Level: High Given or contraindicated: Unfractionated heparin SQ Note total time 75 minutes
[2016-09-14 14:45] VITALS: BP 107/64; PULSE 102; TEMP 37.1; O2SAT 99
[2016-09-14 15:43] LABS: INFLUENZA A PCR Neg for Influ A (NEG); INFLUENZA B PCR Neg for Influ B (NEG)
[2016-09-14] MEDS ORDERED: MAGNESIUM SULFATE 1GM / D5W 1 GM in PREMIXED IN D5W 100 ML IV ONE (15:45)
[2016-09-14 15:59] LABS: URINE APPEARANCE CLEAR (CLEAR); URINE BILIRUBIN NEG (NEG); URINE COLOR YELLOW; URINE EPITHELIAL CELL AUTO 20-30 /lpf (0-5); URINE NITRITE NEG (NEG); URINE PH 7.5 (4.5-7.5); URINE SPECIFIC GRAVITY 1.013 (1.000-1.030); UROBILINOGEN NEG (NEG); ZZUR CULT IF INDIC CLEAN CATCH NO
[2016-09-14 16:00] VITALS: O2SAT 99
[2016-09-14 16:00] LABS: MANUAL MICROSCOPIC REQUIRED? NO; REVIEW REQ? NO
[2016-09-14] MEDS ORDERED: NSS + 20MEQ KCL 1000ML 1,000 ML IV SCH (16:00)
[2016-09-14] MEDS: LINZESS: ORDER AWAITING ACTION SCH (16:00)
[2016-09-14] MEDS: CLINDAMYCIN IV 900 MG in DEXTROSE 5% ADD-VANTAGE 100ML 100 ML IV SCH (16:19)
[2016-09-14 16:42] LABS: BENZODIAZEPINE, URINE NEG (NEG); COCAINE,URINE NEG (NEG); PHENCYCLIDINE, URINE NEG (NEG)
[2016-09-14] MEDS: LACTOBACILLUS ACIDOPHILUS (FLORANEX) TAB PO SCH (17:25)
[2016-09-14 19:31] VITALS: BP 86/63; PULSE 102; TEMP 39.5; O2SAT 94
[2016-09-14] MEDS: BUDESONIDE/FORMOTEROL FUMARATE 160/4.5 60 PUFFS/INHALER INH SCH (20:36)
[2016-09-14] MEDS: TOPIRAMATE 100 MG TAB PO SCH (20:37)
[2016-09-14] MEDS: ACETAMINOPHEN 325 MG TAB PO PRN (20:37)
[2016-09-14] MEDS: HEPARIN SOD 5000 UNIT/0.5 ML CARP SQ SCH (21:26)
[2016-09-14 21:28] VITALS: TEMP 38.1
[2016-09-14 23:58] VITALS: BP 99/58; PULSE 90; TEMP 36.8; O2SAT 96
[2016-09-15] VITALS (11 sets, daily range): BP systolic 88–103; BP diastolic 50–64; PULSE 79–96; TEMP 36.8–39.5; O2SAT 94–99
[2016-09-15] MEDS ORDERED: VANCOMYCIN INJ 850 MG in SODIUM CHLORIDE 0.9% 250ML 250 ML IV SCH ×2
[2016-09-15] MEDS: D5NSS + 20MEQ KCL 1,000 ML IV SCH ×5 (00:04→23:15)
[2016-09-15] MEDS: CLINDAMYCIN IV 900 MG in DEXTROSE 5% ADD-VANTAGE 100ML 100 ML IV SCH ×4 (00:04→23:15)
[2016-09-15] MEDS ORDERED: VANCOMYCIN CONSULT ACTIVE PRN (00:15)
[2016-09-15 00:48] LABS: PREG INTERNAL NEGATIVE QC NEG CLEAR BACKGROUND; PREG INTERNAL POSITIVE QC POS CONTROL LINE
[2016-09-15 06:20] LABS: HEMATOCRIT 33.6 % (37-47); MEAN CORPUSCULAR HGB CONC 33.3 g/dl (32-36); MEAN PLATELET VOLUME 9.5 fL (7.4-10.4); PLATELET COUNT 158 K/uL (130-400); RED BLOOD COUNT 3.86 M/uL (4.2-5.4); WHITE BLOOD COUNT 12.43 K/uL (4.8-10.8)
[2016-09-15 06:42] LABS: BASO % 0.2 %; BASO ABS # 0.02 K/uL (0-0.2); COMPLETE YES; ECHINOCYTES 1+; IG% 0.2 %; LYMPH % 8.4 %; LYMPH ABS # 1.05 K/uL (1.2-3.4); NEUT % 86.2 %
[2016-09-15 06:54] LABS: CREATININE 0.74 mg/dl (0.60-1.20); POTASSIUM 3.9 mmol/L (3.5-5.1)
[2016-09-15] MEDS: TIOTROPIUM BROMIDE 5 PUFF/90 MCG INH INH SCH (07:31)
[2016-09-15] MEDS: BUDESONIDE/FORMOTEROL FUMARATE 160/4.5 60 PUFFS/INHALER INH SCH ×2 (07:31→19:49)
[2016-09-15] MEDS: LACTOBACILLUS ACIDOPHILUS (FLORANEX) TAB PO SCH ×3 (07:31→15:27)
[2016-09-15] MEDS: TOPIRAMATE 100 MG TAB PO SCH ×2 (07:31→19:50)
[2016-09-15] MEDS: LINZESS: ORDER AWAITING ACTION SCH ×4 (07:32→23:15)
[2016-09-15] MEDS: HEPARIN SOD 5000 UNIT/0.5 ML CARP SQ SCH ×2 (07:39→19:51)
--- NOTE | 2016-09-15 10:54 | Hospitalist Progress Note ---
Hospitalist Progress Note Date of Service Sep 15, 2016. Subjective Pt evaluation today including: conversation w/ patient, physical exam, chart review Improved toothache. No cp or sob. Medications Medications (Trade) Dose Ordered Sig/Alicia Route Start Time Stop Time Status Last Admin Dose Admin Sodium Chloride 1,000 ml @ 999 mls/hr Q1H1M STAT IV 09/14/16 11:36 09/14/16 12:36 DC 09/14/16 11:58 999 MLS/HR Sodium Chloride 500 ml @ 999 mls/hr Q31M STAT IV 09/14/16 11:36 09/14/16 12:06 DC 09/14/16 12:53 999 MLS/HR Sodium Chloride (Nss 150ml) 150 ml @ 999 mls/hr Q10M STAT IV 09/14/16 11:36 09/14/16 11:45 DC 09/14/16 12:53 999 MLS/HR Ceftriaxone Sodium (Rocephin Inj) 1 gm NOW STAT IV 09/14/16 11:36 09/14/16 11:39 DC 09/14/16 12:07 1 GM Levofloxacin 750 mg 750 mg NOW STAT IV 09/14/16 11:36 09/14/16 11:39 DC 09/14/16 11:58 750 MG Vancomycin HCl/ Sodium Chloride (Vancomycin Inj/ Nss 250ml) 270 ml @ 125 mls/hr NOW STAT IV 09/14/16 11:36 09/14/16 13:45 DC 09/14/16 13:28 125 MLS/HR Potassium Chloride (Klor-Con Tab) 40 meq NOW STAT PO 09/14/16 13:12 09/14/16 15:33 DC 09/14/16 16:20 40 MEQ Heparin Sodium (Porcine) 5000 unit 5,000 unit Q12 SQ 09/14/16 21:00 10/14/16 20:59 09/15/16 07:39 5,000 UNIT Potassium Chloride/Sodium Chloride 1,000 ml @ 200 mls/hr Q5H IV 09/14/16 16:00 09/14/16 20:59 DC 09/14/16 16:19 200 MLS/HR Potassium Chloride/Dextrose/ Sod Cl (D5nss + 20meq KCl) 1,000 ml @ 150 mls/hr Q6H40M IV 09/14/16 21:00 10/14/16 20:59 09/15/16 10:12 150 MLS/HR Acetaminophen (Tylenol Tab) 650 mg Q4H PRN PO 09/14/16 13:15 10/14/16 13:14 09/14/16 20:37 650 MG Tiotropium [place] (Spiriva Handihaler Inhaler) 1 puff DAILY INH 09/15/16 09:00 10/15/16 08:59 09/15/16 07:31 1 PUFF Topiramate (Topamax Tab) 200 mg BID PO 09/14/16 21:00 10/14/16 20:59 09/15/16 07:31 200 MG Miscellaneous Information (Order Awaiting Action) 1 ea QS N/A 09/14/16 16:00 10/14/16 15:59 09/15/16 07:32 1 EA Budesonide/ Formoterol Fumarate 2 puffs 2 puffs BID INH 09/14/16 21:00 10/14/16 20:59 09/15/16 07:31 2 PUFFS Clindamycin Phosphate/Dextrose (Cleocin Iv/ Dextrose Add-[place] 100ML) 106 ml @ 100 mls/hr Q8H IV 09/14/16 16:00 09/24/16 15:59 09/15/16 07:31 100 MLS/HR Lactobacillus Acidophilus 4 tab 4 tab TIDM PO 09/14/16 16:45 10/14/16 17:59 09/15/16 07:31 4 TAB Magnesium Sulfate 1 gm/Prmx 100 ml @ 100 mls/hr NOW ONCE IV 09/14/16 15:45 09/14/16 16:44 DC 09/14/16 17:26 100 MLS/HR Vancomycin HCl/ Sodium Chloride (Vancomycin Inj/ Nss 250ml) 267 ml @ 125 mls/hr Q18H IV 09/15/16 00:00 09/17/16 00:00 09/15/16 01:34 125 MLS/HR Objective Vital Signs Date Time Temp Pulse Resp B/P Pulse Ox O2 Delivery O2 Flow Rate FiO2 09/15/16 08:00 97 Room Air 09/15/16 07:33 37.9 94 18 94/57 97 Room Air 09/15/16 04:02 Room Air 09/15/16 03:45 37.5 96 18 103/64 94 Room Air 09/15/16 00:02 Room Air 09/14/16 23:58 36.8 90 18 99/58 96 Room Air 09/14/16 21:28 38.1 09/14/16 20:04 Room Air 09/14/16 19:31 39.5 102 18 86/63 94 Room Air 09/14/16 16:00 99 Room Air 09/14/16 14:45 37.1 102 20 107/64 99 Room Air 09/14/16 14:15 100 18 100/53 97 09/14/16 13:05 95 Room Air 09/14/16 12:30 98 18 100/64 95 Room Air 09/14/16 11:17 100 17 94/61 97 Room Air Physical Exam Eyes: normal inspection ENT: + pertinent finding (2nd molar on the lower left row appears infected.) Neck: supple, no adenopathy, no JVD Respiratory/Chest: chest non-tender, lungs clear Cardiovascular: regular rate, rhythm, no murmur Abdomen: normal bowel sounds Neurologic/Psychiatric: alert, oriented x 3, + pertinent finding (right hemiparesis) Skin: normal color Laboratory Results Last 24 Hours Test 09/14/16 13:23 09/14/16 15:15 09/15/16 00:00 09/15/16 05:55 Influenza Type A (RT-PCR) Neg for Influ A Influenza Type B (RT-PCR) Neg for Influ B Urine Color YELLOW Urine Appearance CLEAR Urine pH 7.5 Urine Specific [place] 1.013 Urine Protein NEG Urine Glucose (UA) NEG Urine Ketones TRACE Urine Occult Blood NEG Urine Nitrite NEG Urine Bilirubin NEG Urine Urobilinogen NEG Urine Leukocyte Esterase TRACE Urine WBC (Auto) 1-5 /hpf Urine RBC (Auto) 0-4 /hpf Urine Hyaline Casts (Auto) 1-5 /lpf Urine Epithelial Cells (Auto) 20-30 /lpf Urine Bacteria (Auto) NEG Urine Opiates Screen POS Urine Methadone, Qualitative NEG Urine Barbiturates NEG Urine Phencyclidine (PCP) Level NEG Ur Amphetamine/Methamphetamine NEG MDMA (Ecstasy) Screen NEG Urine Benzodiazepines Screen NEG Urine Cocaine Metabolite NEG Urine Marijuana (THC) NEG Urine Test NEG White Blood Count 12.43 K/uL Red Blood Count 3.86 M/uL Hemoglobin 11.2 g/dL Hematocrit 33.6 % Mean Corpuscular Volume 87.0 fL Mean Corpuscular Hemoglobin 29.0 pg Mean Corpuscular Hemoglobin Concent 33.3 g/dl Platelet Count 158 K/uL Mean Platelet Volume 9.5 fL Neutrophils (%) (Auto) 86.2 % Lymphocytes (%) (Auto) 8.4 % Monocytes (%) (Auto) 5.0 % Eosinophils (%) (Auto) 0.0 % Basophils (%) (Auto) 0.2 % Neutrophils # (Auto) 10.71 K/uL Lymphocytes # (Auto) 1.05 K/uL Monocytes # (Auto) 0.62 K/uL Eosinophils # (Auto) 0.00 K/uL Basophils # (Auto) 0.02 K/uL RDW Standard Deviation 46.3 fL RDW Coefficient of Variation 14.5 % Immature Granulocyte % (Auto) 0.2 % Immature Granulocyte # (Auto) 0.03 K/uL Echinocytes 1+ Sodium Level 141 mmol/L Potassium Level 3.9 mmol/L Chloride Level 115 mmol/L Carbon Dioxide Level 19 mmol/L Anion Gap 7.0 mmol/L Blood Urea Nitrogen 7 mg/dl Creatinine 0.74 mg/dl Est Creatinine Clear Calc Drug Dose 71.2 ml/min Estimated GFR () 108.7 Estimated GFR (Non- 93.8 BUN/Creatinine Ratio 10.0 Random Glucose 128 mg/dl Calcium Level 8.0 mg/dl Magnesium Level 2.0 mg/dl Diagnostic Results Blood cultures pending 09/15/16 05:55 Red Blood Count 3.86, Mean Corpuscular Volume 87.0, Mean Corpuscular Hemoglobin 29.0, Mean Corpuscular Hemoglobin Concent 33.3, Mean Platelet Volume 9.5, Neutrophils (%) (Auto) 86.2, Lymphocytes (%) (Auto) 8.4, Monocytes (%) (Auto) 5.0, Eosinophils (%) (Auto) 0.0, Basophils (%) (Auto) 0.2, Neutrophils # (Auto) 10.71, Lymphocytes # (Auto) 1.05, Monocytes # (Auto) 0.62, Eosinophils # (Auto) 0.00, Basophils # (Auto) 0.02 09/15/16 05:55 Test 09/14/16 10:29 09/14/16 10:36 09/14/16 10:46 09/14/16 13:23 Prothrombin Time 11.9 SECONDS (9.0-12.0) Prothromb Time International Ratio 1.1 (0.9-1.1) Activated Partial Thromboplast Time 28.0 SECONDS (21.0-31.0) Partial Thromboplastin Ratio 1.1 Total Creatine Kinase 124 U/L (26-192) Creatine Kinase MB 0.9 ng/ml (0.5-3.6) Creatine Kinase MB Ratio 0.7 (0-3.0) Troponin I < 0.015 ng/ml (0-0.045) Bedside Glucose 94 mg/dl (70-90) Bedside Prothrombin Time INR 1.1 (0.9-1.1) Influenza Type A (RT-PCR) Neg for Influ A (NEG) Influenza Type B (RT-PCR) Neg for Influ B (NEG) Test 09/14/16 15:15 09/15/16 00:00 09/15/16 05:55 Urine Color YELLOW Urine Appearance CLEAR (CLEAR) Urine pH 7.5 (4.5-7.5) Urine Specific [place] 1.013 (1.000-1.030) Urine Protein NEG (NEG) Urine Glucose (UA) NEG (NEG) Urine Ketones TRACE (NEG) Urine Occult Blood NEG (NEG) Urine Nitrite NEG (NEG) Urine Bilirubin NEG (NEG) Urine Urobilinogen NEG (NEG) Urine Leukocyte Esterase TRACE (NEG) Urine WBC (Auto) 1-5 /hpf (0-5) Urine RBC (Auto) 0-4 /hpf (0-4) Urine Hyaline Casts (Auto) 1-5 /lpf (0-5) Urine Epithelial Cells (Auto) 20-30 /lpf (0-5) Urine Bacteria (Auto) NEG (NEG) Urine Opiates Screen POS (NEG) Urine Methadone, Qualitative NEG (NEG) Urine Barbiturates NEG (NEG) Urine Phencyclidine (PCP) Level NEG (NEG) Ur Amphetamine/Methamphetamine NEG (NEG) MDMA (Ecstasy) Screen NEG (NEG) Urine Benzodiazepines Screen NEG (NEG) Urine Cocaine Metabolite NEG (NEG) Urine Marijuana (THC) NEG (NEG) Urine Test NEG (NEG) White Blood Count 12.43 K/uL (4.8-10.8) Red Blood Count 3.86 M/uL (4.2-5.4) Hemoglobin 11.2 g/dL (12.0-16.0) Hematocrit 33.6 % (37-47) Mean Corpuscular Volume 87.0 fL (80-100) Mean Corpuscular Hemoglobin 29.0 pg (25-34) Mean Corpuscular Hemoglobin Concent 33.3 g/dl (32-36) Platelet Count 158 K/uL (130-400) Mean Platelet Volume 9.5 fL (7.4-10.4) Neutrophils (%) (Auto) 86.2 % Lymphocytes (%) (Auto) 8.4 % Monocytes (%) (Auto) 5.0 % Eosinophils (%) (Auto) 0.0 % Basophils (%) (Auto) 0.2 % Neutrophils # (Auto) 10.71 K/uL (1.4-6.5) Lymphocytes # (Auto) 1.05 K/uL (1.2-3.4) Monocytes # (Auto) 0.62 K/uL (0.11-0.59) Eosinophils # (Auto) 0.00 K/uL (0-0.5) Basophils # (Auto) 0.02 K/uL (0-0.2) RDW Standard Deviation 46.3 fL (36.4-46.3) RDW Coefficient of Variation 14.5 % (11.5-14.5) Immature Granulocyte % (Auto) 0.2 % Immature Granulocyte # (Auto) 0.03 K/uL (0.00-0.02) Echinocytes 1+ Anion Gap 7.0 mmol/L (3-11) Est Creatinine Clear Calc Drug Dose 71.2 ml/min Estimated GFR () 108.7 Estimated GFR (Non- 93.8 BUN/Creatinine Ratio 10.0 (10-20) Calcium Level 8.0 mg/dl (8.5-10.1) Magnesium Level 2.0 mg/dl (1.8-2.4) Date/Time Source Procedure Growth Status 09/14/16 11:50 Blood Blood Culture Pending Received Assessment and Plan 51yo female with prior h/o hemorrhagic stroke in 2012 and DVTs s/p IVC filter, baseline right sided hemiplegia, and COPD presenting with sepsis. 1. sepsis, borderline severe - * admit to telemetry * received 30cc/kg NS boluses in ER * NS with KCL at 200cc/hr x 1 liter THEN * D5NS with KCL at 150cc/hr thereafter * source for sepsis - dental infection vs right-sided pneumonia vs flu vs other * easily could be bacteremic from the dental issue; of note - head CT did not show sinusitis or abscess * follow cultures * clindamycin IV to cover the oral cavity * levaquin IV to cover the lungs * received IV vancomycin per the sepsis protocol; will continue this for 48 hours for broad-spectrum coverage * expand this regimen if necessary * negative rapid flu test * await u/a and urine cx as well Of note - she has no symptoms/signs of meningitis on examination. 2. h/o COPD - not in exacerbation; continue home inhalers. 3. hypokalemia - improved post replacement. 4. hypomagnesemia - improved. 5. chronic headaches - continue topamax prophylaxis. 6. FEN - See #1 above re: fluids. Diet as tolerated (dental soft). BMP/mag am. 7. DVT proph - heparin BID; IVC filter is in place by history. 8. low-normal BPs - I reviewed several ER visits and multiple past hospital stays. Her baseline BP appears to be in the 90-95 systolic range, with occasional values 100-105. Thus, her current BPs are consistent with her BP over the last several years. Follow carefully. 9. h/o hemorrhagic stroke with resulting right-sided hemiplegia - patient's neuro status is at baseline; head CT unchanged. 10. question of right-sided community-acquired pneumonia - see #1 above; antibiotics and supportive care.
[2016-09-15] MEDS: ACETAMINOPHEN 325 MG TAB PO PRN (11:06)
[2016-09-15] MEDS: LEVOFLOXACIN / D5W 750 MG in PREMIXED IN D5W 150 ML IV SCH (11:06)
--- NOTE | 2016-09-15 11:07 | Pharmacy Progress Note ---
Pharmacy Antibiotic Consult Date of Service: Sep 15, 2016. Pharmacy Dosing Scope Pharmacy is consulted to initiate vancomycin IV dosing therapy, order appropriate labs and adjust drug dose/frequency. Subjective The patient is a 51 year old female admitted on Sep 14, 2016 at 13:22 with a toothache with chills and low grade fevers. Objective Height (Feet): 5 Height (Inches): 2.00 Weight (Kilograms): 55.800 Lab Results (24hrs): Laboratory Tests Test 09/15/16 05:55 BUN/Creatinine Ratio 10.0 Blood Urea Nitrogen 7 mg/dl Creatinine 0.74 mg/dl White Blood Count 12.43 K/uL Red Blood Count 3.86 M/uL Hemoglobin 11.2 g/dL Hematocrit 33.6 % Mean Corpuscular Volume 87.0 fL Mean Corpuscular Hemoglobin 29.0 pg Mean Corpuscular Hemoglobin Concent 33.3 g/dl Platelet Count 158 K/uL Mean Platelet Volume 9.5 fL Neutrophils (%) (Auto) 86.2 % Lymphocytes (%) (Auto) 8.4 % Monocytes (%) (Auto) 5.0 % Eosinophils (%) (Auto) 0.0 % Basophils (%) (Auto) 0.2 % Neutrophils # (Auto) 10.71 K/uL Lymphocytes # (Auto) 1.05 K/uL Monocytes # (Auto) 0.62 K/uL Eosinophils # (Auto) 0.00 K/uL Basophils # (Auto) 0.02 K/uL Assessment & Plan Loading dose: vancomycin 1000 mg (17.9 mg/kg) IV X 1 dose then: vancomycin 850 mg IV every 12 hours (population pharmacokinetics suggest a half-life of 12 hours; aggressive dosing utilized as full load not given and there was extended time between dosing) Goal peak level estimate: between 35 - 40 mcg/mL. Goal trough level estimate: between 15-20 mcg/mL. (indication: pneumonia? vs tooth infection) Trough has been ordered for: prior to 1300 dose. Pharmacy will continue to follow and will adjust dose/frequency as necessary. Thank you
[2016-09-15] MEDS: VANCOMYCIN INJ 850 MG in SODIUM CHLORIDE 0.9% 250ML 250 ML IV SCH (13:02)
[2016-09-16] VITALS (11 sets, daily range): BP systolic 87–96; BP diastolic 52–59; PULSE 82–87; TEMP 36.5–37.2; O2SAT 94–99
[2016-09-16] MEDS: VANCOMYCIN INJ 850 MG in SODIUM CHLORIDE 0.9% 250ML 250 ML IV SCH ×2 (01:07→12:58)
[2016-09-16 07:13] LABS: CREATININE 0.7 mg/dl (0.60-1.20)
[2016-09-16] MEDS: TIOTROPIUM BROMIDE 5 PUFF/90 MCG INH INH SCH (07:35)
[2016-09-16] MEDS: LACTOBACILLUS ACIDOPHILUS (FLORANEX) TAB PO SCH ×3 (07:35→16:55)
[2016-09-16] MEDS: BUDESONIDE/FORMOTEROL FUMARATE 160/4.5 60 PUFFS/INHALER INH SCH ×2 (07:35→20:37)
[2016-09-16] MEDS: TOPIRAMATE 100 MG TAB PO SCH ×2 (07:35→20:38)
[2016-09-16] MEDS: CLINDAMYCIN IV 900 MG in DEXTROSE 5% ADD-VANTAGE 100ML 100 ML IV SCH ×3 (07:35→23:21)
[2016-09-16] MEDS: HEPARIN SOD 5000 UNIT/0.5 ML CARP SQ SCH ×2 (07:36→20:42)
[2016-09-16] MEDS: D5NSS + 20MEQ KCL 1,000 ML IV SCH ×3 (07:38→20:35)
--- NOTE | 2016-09-16 09:39 | Hospitalist Progress Note ---
Hospitalist Progress Note Date of Service Sep 16, 2016. Subjective Pt evaluation today including: conversation w/ patient, physical exam, chart review Still with tooth ache, although improved. Low grade fevers. Medications Medications (Trade) Dose Ordered Sig/Alicia Route Start Time Stop Time Status Last Admin Dose Admin Levofloxacin 750 mg/Prmx 150 ml @ 100 mls/hr DAILY@1200 IV 09/15/16 12:00 09/21/16 11:59 09/15/16 11:06 100 MLS/HR Vancomycin HCl/ Sodium Chloride (Vancomycin Inj/ Nss 250ml) 267 ml @ 125 mls/hr Q12H IV 09/15/16 13:00 09/16/16 23:59 09/16/16 01:07 125 MLS/HR Objective Vital Signs Date Time Temp Pulse Resp B/P Pulse Ox O2 Delivery O2 Flow Rate FiO2 09/16/16 07:43 37.2 87 16 95/59 98 09/16/16 04:00 Room Air 09/16/16 03:14 37.1 83 18 93/57 97 Room Air 09/15/16 23:59 Room Air 09/15/16 23:49 37.6 93 17 94/57 98 Room Air 09/15/16 20:00 97 Room Air 09/15/16 19:27 36.8 96 18 94/58 99 09/15/16 16:00 97 Room Air 09/15/16 15:24 36.9 88 18 88/54 97 Room Air 09/15/16 13:02 37.3 09/15/16 12:00 97 Room Air 09/15/16 11:20 39.5 79 16 95/50 96 Physical Exam General Appearance: WD/WN Eyes: normal inspection ENT: + pertinent finding (chipped 2nd molar in the lower right row of teeth ( mandibular)) Neck: supple, no JVD Respiratory/Chest: chest non-tender, lungs clear Cardiovascular: regular rate, rhythm, no edema, no murmur Abdomen: normal bowel sounds, non tender, soft Extremities: normal range of motion 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 1. sepsis, borderline severe - * admit to telemetry * received 30cc/kg NS boluses in ER * NS with KCL at 200cc/hr x 1 liter THEN * D5NS with KCL at 150cc/hr thereafter * source for sepsis - dental infection vs right-sided pneumonia vs flu vs other * easily could be bacteremic from the dental issue; of note - head CT did not show sinusitis or abscess * follow cultures * clindamycin IV to cover the oral cavity * levaquin IV to cover the lungs * received IV vancomycin per the sepsis protocol; will continue this for 48 hours for broad-spectrum coverage * expand this regimen if necessary * negative rapid flu test * blood cultures negative todate Of note - she has no symptoms/signs of meningitis on examination. 2. h/o COPD - not in exacerbation; continue home inhalers. 3. hypokalemia - improved post replacement. 4. hypomagnesemia - improved. 5. chronic headaches - continue topamax prophylaxis. 6. FEN - See #1 above re: fluids. Diet as tolerated (dental soft). BMP/mag am. 7. DVT proph - heparin BID; IVC filter is in place by history. 8. low-normal BPs - I reviewed several ER visits and multiple past hospital stays. Her baseline BP appears to be in the 90-95 systolic range, with occasional values 100-105. Thus, her current BPs are consistent with her BP over the last several years. Follow carefully. 9. h/o hemorrhagic stroke with resulting right-sided hemiplegia - patient's neuro status is at baseline; head CT unchanged. 10. question of right-sided community-acquired pneumonia - see #1 above; antibiotics and supportive care.
[2016-09-16] MEDS: LEVOFLOXACIN / D5W 750 MG in PREMIXED IN D5W 150 ML IV SCH (10:46)
[2016-09-16] MEDS ORDERED: VANCOMYCIN TROUGH SCH (12:30)
[2016-09-16] MEDS: LINZESS: ORDER AWAITING ACTION SCH ×3 (16:00→23:22)
--- NOTE | 2016-09-16 17:06 | Pharmacy Progress Note ---
Pharmacy Antibiotic Prog Note Date of Service Sep 16, 2016. Subjective The patient is currently receiving vancomycin 850 mg IV every 12 hours. The patient is currently on day # 3/ of vancomycin & clindamyin IV therapy & 2 /10 of Levaquin IV therapy. Objective Height (Feet): 5 Height (Inches): 2.00 Weight (Kilograms): 56.700 Levels: Item Value Date Time Vancomycin Level Trough 7.8 mcg/ml 09/16/16 1220 Lab Results (24hrs): Laboratory Tests Test 09/16/16 06:22 Creatinine 0.70 mg/dl Micro Results: Blood cx X 2: NGTD Recent Pertinent Medications Clindamydin 900mg IV q 8h ongoing Levaquin 750mg IV daily ongoing Assessment & Plan Vancomycin: continue dosing 24-48 hrs longer empirically per Dr Forrester pending cultures. This drug level is: Subtherapeutic (vanco trough 7.8mcg/ml) Change to vancomycin 1000 mg IV every 8 hours. Goal peak level estimate: between 35 - 40 mcg/mL. Goal trough level estimate: between 15 - 20 mcg/mL. Peak and trough or random level has been ordered for: 09/17 prior to 2000 dose. Pharmacy will continue to follow and will adjust dose/frequency as necessary. Thank you
[2016-09-16] MEDS: VANCOMYCIN INJ 1,000 MG in SODIUM CHLORIDE 0.9% 250ML 250 ML IV SCH (20:35)
[2016-09-17 03:20] VITALS: BP 92/58; PULSE 74; TEMP 36.9; O2SAT 98
[2016-09-17 04:00] VITALS: O2SAT 94
[2016-09-17] MEDS: VANCOMYCIN INJ 1,000 MG in SODIUM CHLORIDE 0.9% 250ML 250 ML IV SCH ×2 (04:29→12:23)
[2016-09-17] MEDS: D5NSS + 20MEQ KCL 1,000 ML IV SCH ×2 (04:29→12:23)
[2016-09-17 06:15] LABS: CREATININE 0.71 mg/dl (0.60-1.20)
[2016-09-17 06:19] LABS: HEMATOCRIT 30.8 % (37-47); MEAN CELL VOLUME 87.3 fL (80-100); MEAN CORPUSCULAR HEMOGLOBIN 29.2 pg (25-34); MEAN CORPUSCULAR HGB CONC 33.4 g/dl (32-36); MEAN PLATELET VOLUME 10.4 fL (7.4-10.4); PLATELET COUNT 149 K/uL (130-400); RED BLOOD COUNT 3.53 M/uL (4.2-5.4); WHITE BLOOD COUNT 5.61 K/uL (4.8-10.8)
[2016-09-17] MEDS: LINZESS: ORDER AWAITING ACTION SCH (08:57)
[2016-09-17] MEDS: LACTOBACILLUS ACIDOPHILUS (FLORANEX) TAB PO SCH (08:58)
[2016-09-17] MEDS: TOPIRAMATE 100 MG TAB PO SCH (08:58)
[2016-09-17] MEDS: CLINDAMYCIN IV 900 MG in DEXTROSE 5% ADD-VANTAGE 100ML 100 ML IV SCH (08:58)
[2016-09-17] MEDS: BUDESONIDE/FORMOTEROL FUMARATE 160/4.5 60 PUFFS/INHALER INH SCH (08:59)
[2016-09-17] MEDS: TIOTROPIUM BROMIDE 5 PUFF/90 MCG INH INH SCH (08:59)
[2016-09-17] MEDS: HEPARIN SOD 5000 UNIT/0.5 ML CARP SQ SCH (09:01)
[2016-09-17 11:27] VITALS: BP 91/56; PULSE 85; TEMP 36.6; O2SAT 97
[2016-09-17] MEDS: LEVOFLOXACIN / D5W 750 MG in PREMIXED IN D5W 150 ML IV SCH (12:15)
--- NOTE | 2016-09-17 13:55 | Discharge Instructions ---
Discharge Instructions Date of Service Sep 17, 2016. Admission Reason for Admission: Sepsis Discharge Discharge Diagnosis / Problem: Dental infection Discharge Goals Goal(s): Decrease discomfort Activity Recommendations Activity Limitations: as noted below Lifting Limitations: gradually increase as tolerated Exercise/Sports Limitations: gradually increase as tolerated May Resume Sexual Activity: when tolerated Shower/Bathe: no limitations Driving or Machine Use: no limitations . Instructions / Follow-Up Instructions / Follow-Up Dentist in one week Current Hospital Diet Patient's current hospital diet: Regular Diet Discharge Diet Recommended Diet: AHA Diet (Heart Healthy) Pending Studies Studies pending at discharge: no Laboratory Results Lipid Panel Test 08/07/16 09:05 Range/Units Triglycerides Level 74 0-150 mg/dl Cholesterol Level 222 H 0-200 mg/dl HDL Cholesterol 88 mg/dl Cholesterol/HDL Ratio 2.5 LDL Cholesterol, Calculated 119 mg/dl Medical Emergencies . Who to Call and When: Medical Emergencies: If at any time you feel your situation is an emergency, please call 911 immediately. . Non-Emergent Contact Non-Emergency issues call your: Primary Care Provider . Past History Medical & Surgical History: (1) COPD (chronic obstructive pulmonary disease) (2) Pneumonia (3) History of intracranial hemorrhage (4) Chronic obstructive lung disease . "Provider Documentation" section prepared by Vanita Forrester. . VTE Core Measure Inpt VTE Proph given/why not?: Unfractionated heparin SQ
--- NOTE | 2016-09-17 14:00 | Discharge Summary ---
Discharge Summary Date of Service Sep 17, 2016. Discharge Summary Admission Date: Sep 14, 2016 at 13:22 Discharge Date: Sep 17, 2016 Discharge Disposition: Home Principal Diagnosis: Dental infection Problems/Secondary Diagnoses: (1) Compa filter in place Status: Chronic Immunizations: Have You Had Influenza Vaccine: Unknown Influenza Vaccine Date: Mar 02, 2013 History of Tetanus Vaccine?: Unknown History of Pneumococcal: Unknown History of Hepatitis B Vaccine: Unknown Medication Reconciliation Continued Medications: Albuterol (Ventolin Hfa) 60 Puffs/5400 Mcg Aers 2 PUFFS INH QID PRN for SOB/Wheezing Clindamycin Hcl (Cleocin) 300 Mg Cap 300 MG PO QID for 10 Days, #40 CAP Hydrocodone/Acetaminophen 5MG/325MG ([place] 5MG/325MG) Tab 1-2 TABLET PO Q4H PRN for Pain, #8 TAB For Initial Treatment Linaclotide (Linzess) 290 Mcg Cap 290 MCG PO DAILY Mometasone Furoate-Formoterol (Dulera 200/5 Mcg) 1 Aer Aer 2 PUFFS INH BID, GM Tiotropium [place] (Spiriva Handihaler) 30 Puff/540 Mcg Aerp 2 PUFFS INH DAILY, INHALER Topiramate (Topamax) 200 Mg Tab 200 MG PO BID, TAB Discharge Exam Physical Exam: General Appearance: WD/WN Eyes: normal inspection ENT: + pertinent finding (poor oral hygiene) Neck: supple, no JVD Respiratory/Chest: chest non-tender, lungs clear Cardiovascular: regular rate, rhythm, no JVD, no murmur Abdomen / GI: normal bowel sounds, non tender, soft Extremities: normal inspection Neurologic/Psychiatric: alert, oriented x 3, + motor weakness (right hemipareis arm>leg) Lymphatic: no adenopathy Hospital Course 51yo female with prior h/o hemorrhagic stroke in 2012 and DVTs s/p IVC filter, baseline right sided hemiplegia, and COPD presenting with sepsis. 1. sepsis, borderline severe - * admit to telemetry * received 30cc/kg NS boluses in ER * NS with KCL at 200cc/hr x 1 liter THEN * D5NS with KCL at 150cc/hr thereafter * source for sepsis - dental infection vs right-sided pneumonia vs flu vs other * easily could be bacteremic from the dental issue; of note - head CT did not show sinusitis or abscess * follow cultures * clindamycin IV to cover the oral cavity * levaquin IV to cover the lungs * received IV vancomycin per the sepsis protocol; will continue this for 48 hours for broad-spectrum coverage * expand this regimen if necessary * negative rapid flu test * blood cultures negative at time of discharge. Pt advised to complete 10 day course of clindamycin and also to make appt to see dentist Of note - she has no symptoms/signs of meningitis on examination. 2. h/o COPD - not in exacerbation; continue home inhalers. 3. hypokalemia - improved post replacement. 4. hypomagnesemia - improved. 5. chronic headaches - continue topamax prophylaxis. 6. FEN - See #1 above re: fluids. Diet as tolerated (dental soft). BMP/mag am. 7. DVT proph - heparin BID; IVC filter is in place by history. 8. h/o hemorrhagic stroke with resulting right-sided hemiplegia - patient's neuro status is at baseline; head CT unchanged. Total Time Spent: Less than 30 minutes This includes examination of the patient, discharge planning, medication reconciliation, and communication with other providers. Discharge Instructions Please refer to the electronic Patient Visit Report (Discharge Instructions) for additional information. Follow-Up Dentist in one week
[2016-09-17 14:05] VITALS: BP 91/56; PULSE 85; TEMP 36.6; O2SAT 97
[2016-09-17] MEDS ORDERED: CLINDAMYCIN HCL 150 MG CAP PO SCH (15:00)
[2016-09-17] MEDS ORDERED: VANCOMYCIN TROUGH SCH (19:30)
[2016-09-17 22:06] LABS: COD UR NEGATIVE NG/ML (CUTOFF=50); HYDROCOD UR NEGATIVE NG/ML (CUTOFF=50); HYDROMOR UR NEGATIVE NG/ML (CUTOFF=50); MORPHINE UR NEGATIVE NG/ML (CUTOFF=50); NORHYDROCODONE CONF UR 363 NG/ML (CUTOFF=50); OXYMORPH UR NEGATIVE NG/ML (CUTOFF=50)
--- NOTE | 2016-09-21 08:24 | EDITING REQUIRED CODING QUERY ---
CODING QUERY To promote full compliance with coding requirements relating to patient care, provider participation is requested in all cases of software engineer backend uncertainty. Please assist us with the question(s) below: Coding Question(s): Dr. Forrester, Please clarify if pneumonia was: ( ) Present and treated during this admission ( ) Ruled out ( ) Other, please explain Physician's Response(s): Thank you for your time, AKIRA Wayne, [employer]GER
== END 2016-09-17 14:25 | disposition home or self-care (01) | DRG 871 ==
LOC: ENRESERVTM → ENRESERVDT → C.EDB 10:01 → C.2T 13:22
PROVIDERS: ADMIT Internal Medicine; ATTEND Internal Medicine
DX: A41.9 Sepsis, unspecified organism (principal); J18.9 Pneumonia, unspecified organism; I69.151 Hemiplegia and hemiparesis following nontraumatic intracerebral hemorrhage affecting right dominant side; K04.7 Periapical abscess without sinus; E87.6 Hypokalemia; E83.42 Hypomagnesemia; J44.9 Chronic obstructive pulmonary disease, unspecified; I69.119 Unspecified symptoms and signs involving cognitive functions following nontraumatic intracerebral hemorrhage; M47.816 Spondylosis without myelopathy or radiculopathy, lumbar region; R51 Headache; Z86.718 Personal history of other venous thrombosis and embolism; Z95.828 Presence of other vascular implants and grafts; Z87.891 Personal history of nicotine dependence; Z79.51 Long term (current) use of inhaled steroids; Z79.899 Other long term (current) drug therapy; Z79.891 Long term (current) use of opiate analgesic

== ENCOUNTER 2016-09-20 12:07 | Inpatient (IN) | payer OTHER ==
[~2016-09-20] VITALS: Ht 157.5 cm; Wt 54.7 kg
[2016-09-20] MEDS ORDERED: DiphenhydrAMINE HCL 50 MG/ML VIAL IV STA (12:29)
[2016-09-20 13:08] LABS: HEMATOCRIT 33.7 % (37-47); MEAN CORPUSCULAR HEMOGLOBIN 28.1 pg (25-34); MEAN CORPUSCULAR HGB CONC 32.6 g/dl (32-36); MEAN PLATELET VOLUME 9.1 fL (7.4-10.4); PLATELET COUNT 309 K/uL (130-400); RED BLOOD COUNT 3.92 M/uL (4.2-5.4); WHITE BLOOD COUNT 7.06 K/uL (4.8-10.8)
[2016-09-20 13:17] LABS: PARTIAL THROMBOPLASTIN RATIO 1.2; PROTHROMBIN TIME (PATIENT) 11.2 SECONDS (9.0-12.0)
[2016-09-20 13:34] LABS: BASO ABS # 0.06 K/uL (0-0.2); BASOPHIL % 0.9 %; COMPLETE YES; CREATININE 0.59 mg/dl (0.60-1.20); ECHINOCYTES 1+; EOSINOPHIL % 1.7 %; LYMPH ABS # 1.04 K/uL (1.2-3.4); LYMPHOCYTE % 14.8 %; MYELOCYTE % 0.9 %; NEUTROPHILS % 78.2 %
[2016-09-20 13:35] LABS: BUN/CREATININE RATIO 13.3 (10-20); CALCIUM 8.9 mg/dl (8.5-10.1); POTASSIUM 4.3 mmol/L (3.5-5.1)
--- NOTE | 2016-09-20 13:52 | DIAGNOSTIC IMAGING REPORT ---
RIGHT UPPER EXTREMITY VENOUS DOPPLER CLINICAL HISTORY: Right arm swelling. Trouble breathing. COMPARISON STUDY: No previous studies for comparison. FINDINGS: This exam was suboptimal due to difficulty with positioning. No deep venous thrombus was identified within the right upper extremity. The right internal jugular, subclavian, brachial, basilic, radial and ulnar veins appear patent. The cephalic vein was not well visualized. IMPRESSION: No deep venous thrombus within the right upper extremity. Electronically signed by: Suresh Bear M.D. 09/20/2016 1:51 PM Dictated Date/Time: 09/20/2016 1:49 PM
--- NOTE | 2016-09-20 14:18 | DIAGNOSTIC IMAGING REPORT ---
CHEST 2 VIEWS ROUTINE CLINICAL HISTORY: Evaluate for pneumonia COMPARISON STUDY: Chest CT July 22, 2016 and chest radiograph September 14, 2016. FINDINGS: Postsurgical findings within the right hemithorax with expected right lung volume loss are noted. A calcified nodule is noted. No pneumothorax is identified. There is a possible trace right pleural effusion. A 4.2 cm right suprahilar opacity has progressed since prior exam of September 14, 2016 but is new since a chest CT of July 22, 2016. Emphysema is noted. There is no radiographic evidence of pulmonary edema. IMPRESSION: 1. Progression of a 4.2 cm right suprahilar nodular opacity. This likely reflects pneumonia. However, post treatment radiographs to ensure resolution are recommended. 2. Possible trace right pleural effusion. Electronically signed by: Suresh Bear M.D. 09/20/2016 2:17 PM Dictated Date/Time: 09/20/2016 2:14 PM
[2016-09-20] MEDS ORDERED: LEVAQUIN 750MG / 150ML D5W IV STA (15:04)
[2016-09-20] MEDS ORDERED: ACETAMINOPHEN 325 MG TAB PO PRN (16:30)
[2016-09-20] MEDS ORDERED: ONDANSETRON INJ 2 MG/ML 2 ML VIAL IV PRN (16:30)
[2016-09-20] MEDS ORDERED: ALBUTEROL HFA 8 GM INHALER INH PRN (16:30)
[2016-09-20] MEDS ORDERED: MAGNESIUM HYDROXIDE SUSP 30 ML UDC PO PRN (16:30)
--- NOTE | 2016-09-20 16:39 | History and Physical ---
History & Physical Date & Time of Service: Sep 20, 2016 at 16:36 Chief Complaint: Rash,Trouble Breathing,Swollen Arm,R Side&Ear Pain Primary Care Physician: Andrew Rodriguez M.D. History of Present Illness Source: patient 51 y/o F c/o hives, rash. Pt was recently admitted from for sepsis thought to be from a dental infection and possibly a CAP. Pt was tx with IV clinda and levaquin with vanco coverage for the first 48hrs. She improved greatly and was d/c'd to home to finish a course of PO clinda and with f/u to a dentist on Wednesday. She has had a poor appetite, but was otherwise doing well until this morning when she noted hives, a rash on her R abd, back, and R UE, and R UE swelling. She is not able to feel pain to her R UE due to a prior CVA, so she cannot tell me if there is pain related to this, however it was itching in other areas. She has hx of allergy to other abx, but is uncertain if she has even taking clinda prior. Pt denies fever, SOB, chest pain, abd pain, n/v/c/d, LE pain or swelling. ROS as noted above, otherwise neg. 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 Social History Smoking Status: Former Smoker (quit 2011) Alcohol Use: none Drug Use: none Marital Status: Housing status: lives with family Occupational Status: disabled Immunizations History of Influenza Vaccine: Unknown Influenza Vaccine Date: Mar 02, 2013 History of Tetanus Vaccine?: Unknown History of Pneumococcal: Unknown History of Hepatitis B Vaccine: Unknown Multi-Drug Resistant Organisms History of MDRO: No Allergies Coded Allergies: Guaifenesin (Verified Allergy, Intermediate, HIVES, TAKEN AT SAME TIME AUGMENTIN, 09/20/16) Iodinated Diagnostic Agents (Verified Allergy, Intermediate, HIVES, ) Lubiprostone (Verified Allergy, Intermediate, HIVES, 09/20/16) Oxcarbazepine (Verified Allergy, Intermediate, HIVES, 09/20/16) Penicillins (Verified Allergy, Intermediate, HIVES, TAKEN AT SAME TIME ENTEX, 09/20/16) Phenylephrine (Verified Allergy, Intermediate, HIVES, TAKEN AT SAME TIME AUGMENTIN, 09/20/16) Phenylpropanolamine (Verified Allergy, Intermediate, HIVES, TAKEN AT SAME TIME AUGMENTIN, 09/20/16) Red Dye (Verified Allergy, Intermediate, HIVES, 09/20/16) Varenicline (Verified Allergy, Intermediate, HIVES, 09/20/16) Sulfamethoxazole (Verified Allergy, Mild, 09/20/16) Trimethoprim (Verified Allergy, Mild, 09/20/16) Sulfa Antibiotics (Verified Adverse Reaction, Mild, "SULFA DRUGS": GI UPSET, 09/20/16) Home Medications Scheduled Linaclotide (Linzess), 290 MCG PO DAILY Mometasone Furoate-Formoterol (Dulera 200/5 Mcg), 2 PUFFS INH BID Tiotropium [place] (Spiriva Handihaler), 2 PUFFS INH DAILY Topiramate (Topamax), 200 MG PO BID Scheduled PRN Albuterol (Ventolin Hfa), 2 PUFFS INH QID PRN for SOB/Wheezing Physical Exam Vital Signs Date Time Temp Pulse Resp B/P Pulse Ox O2 Delivery O2 Flow Rate FiO2 09/20/16 14:36 68 16 99/52 99 Room Air 09/20/16 12:58 98 Room Air 09/20/16 12:10 36.5 74 20 119/54 98 Room Air General Appearance: no apparent distress, + thin Head: normocephalic, atraumatic Respiratory/Chest: no respiratory distress, + crackles (R) Cardiovascular: regular rate, rhythm, no edema Abdomen/GI: non tender, soft Extremities/Musculoskelatal: no calf tenderness, no pedal edema Neurologic/Psych: alert, normal mood/affect Skin: warm/dry, + pertinent finding (R UE with redness on anterior medial surface of forearm, I did akilah this with ink) Diagnostics Laboratory Results Results Past 24 Hours Test 09/20/16 12:50 09/20/16 12:52 Range/Units White Blood Count 7.06 4.8-10.8 K/uL Red Blood Count 3.92 4.2-5.4 M/uL Hemoglobin 11.0 12.0-16.0 g/dL Hematocrit 33.7 37-47 % Mean Corpuscular Volume 86.0 80-100 fL Mean Corpuscular Hemoglobin 28.1 25-34 pg Mean Corpuscular Hemoglobin Concent 32.6 32-36 g/dl Platelet Count 309 130-400 K/uL Mean Platelet Volume 9.1 7.4-10.4 fL RDW Standard Deviation 46.7 36.4-46.3 fL RDW Coefficient of Variation 14.9 11.5-14.5 % Neutrophils % (Manual) 78.2 % Lymphocytes % (Manual) 14.8 % Monocytes % (Manual) 3.5 % Eosinophils % (Manual) 1.7 % Basophils % (Manual) 0.9 % Myelocytes % 0.9 % Neutrophils # (Manual) 5.52 1.4-6.5 K/uL Total Absolute Neutrophils 5.52 1.4-6.5 K/uL Lymphocytes # (Manual) 1.04 1.2-3.4 K/uL Total Absolute Lymphocytes 1.04 1.2-3.4 K/uL Monocytes # (Manual) 0.25 0.11-0.59 K/uL Eosinophils # (Manual) 0.12 0-0.5 K/uL Basophils # (Manual) 0.06 0-0.2 K/uL Myelocytes # 0.06 0-0 K/uL Echinocytes 1+ Prothrombin Time 11.2 9.0-12.0 SECONDS Prothromb Time International Ratio 1.0 0.9-1.1 Activated Partial Thromboplast Time 30.3 21.0-31.0 SECONDS Partial Thromboplastin Ratio 1.2 Sodium Level 144 136-145 mmol/L Potassium Level 4.3 3.5-5.1 mmol/L Chloride Level 110 98-107 mmol/L Carbon Dioxide Level 21 21-32 mmol/L Anion Gap 13.0 3-11 mmol/L Blood Urea Nitrogen 8 7-18 mg/dl Creatinine 0.59 0.60-1.20 mg/dl Est Creatinine Clear Calc Drug Dose 89.2 ml/min Estimated GFR () 123.0 Estimated GFR (Non- 106.1 BUN/Creatinine Ratio 13.3 10-20 Random Glucose 80 70-99 mg/dl Calcium Level 8.9 8.5-10.1 mg/dl Chemistry Specimen Hemolysis Bedside Troponin I 0.030 0-0.045 ng/ml Diagnostic Radiology CXR shows worsening R suprahilar PNA R UE US neg for DVT Impression Assessment and Plan 51 y/o F who was admitted on 09/20 for a developed allergic reaction to abx Allergic rxn: hives are resolved, UE redness persisting Pt was on IV clinda for several days and PO clinda for 2 additional days without issue, however this AM developed the above issues Dental infection: Switch to doxy and monitor Pt was to see dentist on Wednesday, this will need rescheduled PNA: Questionable on CXR during admission, now more clear Doxy should cover this as well Monitor closely given sepsis from one of these two infxns on last admission Blood cx neg x2 on d/c COPD: stable, will start scheduled nebs to prevent exacerbation Hold on steroids given no wheezing 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
[2016-09-20 17:35] VITALS: O2SAT 95; Ht 157.5 cm; Wt 54.7 kg
--- NOTE | 2016-09-20 17:52 | EMERGENCY ROOM VISIT NOTE ---
History Report prepared by Vika: Yobany Reece Under the Supervision of: Dr. Marco Antonio Sun M.D. First contact with patient: 12:15 Chief Complaint: RASH Stated Complaint: RASH,TROUBLE BREATHING,SWOLLEN ARM,R SIDE&EAR PAIN History of Present Illness The patient is a 51 year old female with a history of COPD who presents to the Emergency Room with complaints of a sudden rash beginning a few hours prior to arrival. She describes her rash as itchy and rates her discomfort as a 4/10 in severity. The patient associates right arm redness and swelling with today's symptoms. She states she woke up this morning to a rash on her right abdomen, back, and arms. The patient also notes she woke up to her right arm being swollen and erythematous. She states she is on Clindamycin for sepsis secondary to a dental infection or pneumonia. The patient notes it is difficult for her to perceive pain in her right arm due to a previous hemorrhagic stroke. She states she has a history of clots in her legs, but she is not on blood thinners due to her stroke. The patient denies taking anything for her symptoms today. She denies throat or tongue swelling, difficulty breathing other than baseline COPD, chest pain, fever, and vomiting. Source of History: patient Onset: few hours [employer] Position: other (global) Symptom Intensity: 4/10 Quality: other (itchy rash) Timing: other (sudden) Associated Symptoms: + rash (right abdomen, back, and arms), No SOB, No chest pain, No fevers, No vomiting Note: Associated symptoms: right arm redness and swelling Review of Systems See HPI for pertinent positives & negatives. A total of 10 systems reviewed and were otherwise negative. 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 Surgical Problems: (1) Compa filter in place Family History Hypertension Social History Smoking Status: Former Smoker Alcohol Use: occasionally Drug Use: none Marital Status: Housing Status: lives with significant other Occupation Status: disabled Current/Historical Medications Scheduled Linaclotide (Linzess), 290 MCG PO DAILY Mometasone Furoate-Formoterol (Dulera 200/5 Mcg), 2 PUFFS INH BID Tiotropium [place] (Spiriva Handihaler), 2 PUFFS INH DAILY Topiramate (Topamax), 200 MG PO BID Scheduled PRN Albuterol (Ventolin Hfa), 2 PUFFS INH QID PRN for SOB/Wheezing Allergies Coded Allergies: Guaifenesin (Verified Allergy, Intermediate, HIVES, TAKEN AT SAME TIME AUGMENTIN, 09/20/16) Iodinated Diagnostic Agents (Verified Allergy, Intermediate, HIVES, ) Lubiprostone (Verified Allergy, Intermediate, HIVES, 09/20/16) Oxcarbazepine (Verified Allergy, Intermediate, HIVES, 09/20/16) Penicillins (Verified Allergy, Intermediate, HIVES, TAKEN AT SAME TIME ENTEX, 09/20/16) Phenylephrine (Verified Allergy, Intermediate, HIVES, TAKEN AT SAME TIME AUGMENTIN, 09/20/16) Phenylpropanolamine (Verified Allergy, Intermediate, HIVES, TAKEN AT SAME TIME AUGMENTIN, 09/20/16) Red Dye (Verified Allergy, Intermediate, HIVES, 09/20/16) Varenicline (Verified Allergy, Intermediate, HIVES, 09/20/16) Sulfamethoxazole (Verified Allergy, Mild, 09/20/16) Trimethoprim (Verified Allergy, Mild, 09/20/16) Sulfa Antibiotics (Verified Adverse Reaction, Mild, "SULFA DRUGS": GI UPSET, 09/20/16) Physical Exam Vital Signs Date Time Temp Pulse Resp B/P Pulse Ox O2 Delivery O2 Flow Rate FiO2 09/20/16 16:07 36.7 78 16 106/45 95 Room Air 09/20/16 14:36 68 16 99/52 99 Room Air 09/20/16 12:58 98 Room Air 09/20/16 12:10 36.5 74 20 119/54 98 Room Air Physical Exam Constitutional: Vital signs reviewed. Eyes: Pupils are equal round reactive to light. Conjunctiva are noninjected. ENT: Pharynx is clear without erythema or exudate. No swelling to tongue or uvula. Mucous membranes are moist. Neck supple without meningeal signs. Respiratory: Wheezing at the right base but otherwise clear breath sounds. Breath sounds are equal bilaterally. Cardiovascular: Regular rate and rhythm. No rubs or gallops. GI: Soft, nondistended and nontender. Bowel sounds are present. Musculoskeletal: Right arm swelling with erythema to the bicep without increased warmth, normal distal pulses. No lower extremity tenderness. Integumentary: Patchy erythematous rash over the right abdomen and left forearm which is easily blanchable. No versicles or bullae. No lesions on palms or soles. No rash on legs or back. No cyanosis. Neurological: The patient is awake and alert. Chronic weakness to the right lower extremity and paralysis of right upper extremity. Psychiatric: Normal affect. Medical Decision & Procedures ER Provider Diagnostic Interpretation: Radiology results as stated below per my review and the radiologist's interpretation: CHEST 2 VIEWS ROUTINE CLINICAL HISTORY: Evaluate for pneumonia COMPARISON STUDY: Chest CT July 22, 2016 and chest radiograph September 14, 2016. FINDINGS: Postsurgical findings within the right hemithorax with expected right lung volume loss are noted. A calcified nodule is noted. No pneumothorax is identified. There is a possible trace right pleural effusion. A 4.2 cm right suprahilar opacity has progressed since prior exam of September 14, 2016 but is new since a chest CT of July 22, 2016. Emphysema is noted. There is no radiographic evidence of pulmonary edema. IMPRESSION: 1. Progression of a 4.2 cm right suprahilar nodular opacity. This likely reflects pneumonia. However, post treatment radiographs to ensure resolution are recommended. 2. Possible trace right pleural effusion. Electronically signed by: Suresh Bear M.D. 09/20/2016 2:17 PM RIGHT UPPER EXTREMITY VENOUS DOPPLER CLINICAL HISTORY: Right arm swelling. Trouble breathing. COMPARISON STUDY: No previous studies for comparison. FINDINGS: This exam was suboptimal due to difficulty with positioning. No deep venous thrombus was identified within the right upper extremity. The right internal jugular, subclavian, brachial, basilic, radial and ulnar veins appear patent. The cephalic vein was not well visualized. IMPRESSION: No deep venous thrombus within the right upper extremity. Electronically signed by: Suresh Bear M.D. 09/20/2016 1:51 PM Laboratory Results 09/20/16 12:50 Red Blood Count 3.92, Mean Corpuscular Volume 86.0, Mean Corpuscular Hemoglobin 28.1, Mean Corpuscular Hemoglobin Concent 32.6, Mean Platelet Volume 9.1 09/20/16 12:50 Test 09/20/16 12:50 09/20/16 12:52 White Blood Count 7.06 K/uL (4.8-10.8) Red Blood Count 3.92 M/uL (4.2-5.4) Hemoglobin 11.0 g/dL (12.0-16.0) Hematocrit 33.7 % (37-47) Mean Corpuscular Volume 86.0 fL (80-100) Mean Corpuscular Hemoglobin 28.1 pg (25-34) Mean Corpuscular Hemoglobin Concent 32.6 g/dl (32-36) Platelet Count 309 K/uL (130-400) Mean Platelet Volume 9.1 fL (7.4-10.4) RDW Standard Deviation 46.7 fL (36.4-46.3) RDW Coefficient of Variation 14.9 % (11.5-14.5) Neutrophils % (Manual) 78.2 % Lymphocytes % (Manual) 14.8 % Monocytes % (Manual) 3.5 % Eosinophils % (Manual) 1.7 % Basophils % (Manual) 0.9 % Myelocytes % 0.9 % Neutrophils # (Manual) 5.52 K/uL (1.4-6.5) Total Absolute Neutrophils 5.52 K/uL (1.4-6.5) Lymphocytes # (Manual) 1.04 K/uL (1.2-3.4) Total Absolute Lymphocytes 1.04 K/uL (1.2-3.4) Monocytes # (Manual) 0.25 K/uL (0.11-0.59) Eosinophils # (Manual) 0.12 K/uL (0-0.5) Basophils # (Manual) 0.06 K/uL (0-0.2) Myelocytes # 0.06 K/uL (0-0) Echinocytes 1+ Prothrombin Time 11.2 SECONDS (9.0-12.0) Prothromb Time International Ratio 1.0 (0.9-1.1) Activated Partial Thromboplast Time 30.3 SECONDS (21.0-31.0) Partial Thromboplastin Ratio 1.2 Anion Gap 13.0 mmol/L (3-11) Est Creatinine Clear Calc Drug Dose 89.2 ml/min Estimated GFR () 123.0 Estimated GFR (Non- 106.1 BUN/Creatinine Ratio 13.3 (10-20) Calcium Level 8.9 mg/dl (8.5-10.1) Chemistry Specimen Hemolysis Bedside Troponin I 0.030 ng/ml (0-0.045) Laboratory results as reviewed by me. Medications Administered Medications (Trade) Dose Ordered Sig/Alicia Route Start Time Stop Time Status Last Admin Dose Admin Diphenhydramine HCl (Benadryl Inj) 50 mg NOW STAT IV 09/20/16 12:29 09/20/16 12:31 DC 09/20/16 13:01 50 MG Levofloxacin (Levaquin / D5W) 750 mg NOW STAT IV 09/20/16 15:04 09/20/16 15:06 DC 09/20/16 15:34 750 MG ECG Indication: other (rash) Rate (beats per minute): 68 Rhythm: normal sinus Findings: no acute ischemic change, no ectopy, other (low voltage QRS) ED Course 1220: The patient was evaluated in room C7. A complete history and physical exam was performed. 1229: Ordered Benadryl Inj 50 mg IV. 1453: Reevaluated and updated the patient at this time about her test results. 1456: I spoke to CHRIS Prieto (Internal Medicine) about the patient's case , and she will follow the patient for further evaluation. Medical Decision This is a 51-year-old female who presents with a rash as well as swelling to her right arm. Differential diagnosis includes DVT, superficial thrombophlebitis, cellulitis, drug reaction, allergic reaction. I did perform a limited focused review of portions of the patient's old chart on the electronic medical record. The patient was admitted September 14 and discharged on September 17. She was admitted for sepsis secondary to dental infection versus pneumonia versus flu. The patient was discharged on Clindamycin. She has a history of a hemorrhagic stroke with right sided weakness. The patient has a history of DVT with [place] filter. I did evaluate the patient as noted above. IV access was established. The patient was placed on a continuous court recording monitor. I did treat the patient with Benadryl IV. I did order and personally review the patient's 12-lead EKG and chest x-ray as described above. The patient has a worsening pneumonia on the right side. I did order and review the patient's blood work as noted in the electronic medical record. I did order an ultrasound of the right upper extremity. I did review the images myself as well as the radiology report as described above. There is no evidence of DVT. I did reassess patient. She states her itching is improved. It is unclear whether or not she is allergic to the [place]. Given she has a worsening pneumonia on chest x-ray did feel she needed to be hospitalized for further evaluation and a different antibiotic. I did discuss the case with the hospitalist and human services case manager. Consults Time Called: [phone] Consulting Physician: CHRIS Prieto (Internal Medicine) Returned Call: [phone] I spoke to CHRIS Prieto (Internal Medicine) about the patient's case, and she will follow the patient for further evaluation. Impression Primary Impression: Pneumonia involving right lung Additional Impressions: Failure of outpatient treatment Rash Swelling of right upper extremity Scribe Attestation The scribe's documentation has been prepared under my direct and personally reviewed by me in its entirety. I confirm that the note above accurately reflects all work, treatment, procedures, and medical decision making performed by me. Departure Information Dispostion Being Evaluated By Hospitalist (CHRIS Prieto (Internal Medicine)) Referrals Andrew Rodriguez M.D. (PCP) Problem Qualifiers Primary Impression: Pneumonia involving right lung Pneumonia type: due to unspecified organism Lung location: unspecified part of lung Qualified Codes: J18.9 - Pneumonia, unspecified organism
[2016-09-20 18:15] VITALS: BP 94/59; PULSE 90; TEMP 36.7; O2SAT 97
[2016-09-20 19:35] VITALS: BP 93/57; PULSE 78; TEMP 36.9; O2SAT 99
[2016-09-20] MEDS: DOXYCYCLINE IV 100 MG in DEXTROSE 5% 100ML 100 ML IV SCH (19:46)
[2016-09-20] MEDS: TOPIRAMATE 100 MG TAB PO SCH (20:53)
[2016-09-20] MEDS ORDERED: ENOXAPARIN 40 MG/0.4 ML SYR SQ SCH (21:00)
[2016-09-20 21:05] VITALS: PULSE 76; O2SAT 95
[2016-09-20] MEDS: ALBUT/IPRATROP 3MG/0.5MG NEB 3 ML VIAL INH SCH (21:05)
[2016-09-20 21:19] VITALS: PULSE 76; O2SAT 95
[2016-09-20 23:04] VITALS: BP 99/62; PULSE 75; TEMP 36.5; O2SAT 97
[2016-09-21 04:36] VITALS: BP 91/49; PULSE 68; TEMP 36.8; O2SAT 92
[2016-09-21] MEDS: DOXYCYCLINE IV 100 MG in DEXTROSE 5% 100ML 100 ML IV SCH (06:16)
[2016-09-21 07:40] VITALS: BP 77/45; PULSE 94; TEMP 36.5; O2SAT 95
[2016-09-21 07:43] VITALS: PULSE 78; O2SAT 96
[2016-09-21] MEDS: ALBUT/IPRATROP 3MG/0.5MG NEB 3 ML VIAL INH SCH ×2 (07:43→11:14)
[2016-09-21 07:50] VITALS: BP 109/65
[2016-09-21] MEDS: TOPIRAMATE 100 MG TAB PO SCH (07:50)
[2016-09-21] MEDS ORDERED: SACCHAROMYCES BOUL (FLORASTOR) 250 MG CAP PO SCH (09:00)
[2016-09-21] MEDS ORDERED: MOMETASONE FUROATE FORMOTEROL INH SCH (09:00)
[2016-09-21] MEDS ORDERED: TIOTROPIUM BROMIDE 5 PUFF/90 MCG INH INH SCH (09:00)
[2016-09-21 11:15] VITALS: PULSE 80; O2SAT 95
--- NOTE | 2016-09-21 11:53 | Discharge Instructions ---
Discharge Instructions Date of Service September 21, 2016. Admission Reason for Admission: Hive; Sob Discharge Discharge Diagnosis / Problem: Drug reaction Discharge Goals Goal(s): Decrease discomfort, Improve function Activity Recommendations Activity Limitations: resume your previous activity . Instructions / Follow-Up Instructions / Follow-Up You were admitted with a rash concerning for a drug reaction. Recommendations: Pneumonia: - Use Doxycycline 100 mg twice daily for 7 days - Please follow up with your dentist as scheduled COPD - Please Continue to use your home inhalers Please follow up with your dentist as scheduled and your PCP in about a week Current Hospital Diet Patient's current hospital diet: Regular Diet Discharge Diet Recommended Diet: Regular Diet Pending Studies Studies pending at discharge: no Laboratory Results Lipid Panel Test 08/07/16 09:05 Range/Units Triglycerides Level 74 0-150 mg/dl Cholesterol Level 222 H 0-200 mg/dl HDL Cholesterol 88 mg/dl Cholesterol/HDL Ratio 2.5 LDL Cholesterol, Calculated 119 mg/dl Medical Emergencies . Who to Call and When: Medical Emergencies: If at any time you feel your situation is an emergency, please call 911 immediately. . Non-Emergent Contact Non-Emergency issues call your: Primary Care Provider . . "Provider Documentation" section prepared by Alessandra Gregorio. . VTE Core Measure Inpt VTE Proph given/why not?: Enoxaparin (Lovenox)SQ Resident Tracking Resident Involvement: Resident Care Provided Care Provided: Adult Hospital Medicine
[2016-09-21] MEDS ORDERED: DOXY100C76 PO ×2 (12:01)
[2016-09-21 12:15] VITALS: BP 109/65; PULSE 80; TEMP 36.5; O2SAT 95
--- NOTE | 2016-09-21 17:00 | Discharge Summary ---
Discharge Summary Date of Service September 21, 2016. (Alessandra Gregorio MD) Discharge Summary Admission Date: Sep 20, 2016 at 16:47 Discharge Date: September 21, 2016 Discharge Disposition: Home Principal Diagnosis: drug reaction Problems/Secondary Diagnoses: (1) Compa filter in place Status: Chronic Immunizations: Have You Had Influenza Vaccine: Unknown Influenza Vaccine Date: Mar 02, 2013 History of Tetanus Vaccine?: Unknown History of Pneumococcal: Unknown History of Hepatitis B Vaccine: Unknown Consultations: None (Alessandra Gregorio MD) Medication Reconciliation New Medications: Doxycycline Monohydrate (Monodox) 100 Mg Cap 100 MG PO BID for 7 Days, #14 CAP Continued Medications: Albuterol (Ventolin Hfa) 60 Puffs/5400 Mcg Aers 2 PUFFS INH QID PRN for SOB/Wheezing Linaclotide (Linzess) 290 Mcg Cap 290 MCG PO DAILY Mometasone Furoate-Formoterol (Dulera 200/5 Mcg) 1 Aer Aer 2 PUFFS INH BID, GM Tiotropium [place] (Spiriva Handihaler) 30 Puff/540 Mcg Aerp 2 PUFFS INH DAILY, INHALER Topiramate (Topamax) 200 Mg Tab 200 MG PO BID, TAB Discharge Exam Doing better today. Rash has significantly improved. Itching is also well controlled Review of Systems: Constitutional: No chills, No fever Eyes: No worsening of vision ENT: No hearing loss Respiratory: No cough, No sputum Cardiovascular: No chest pain Abdomen: No nausea, No pain Musculoskeletal: No joint pain Genitourinary - Female: No dysuria Neurologic: No memory loss, No paralysis, No weakness Endocrine: No fatigue Integumentary: + rash Physical Exam: General Appearance: WD/WN, no apparent distress Eyes: normal inspection ENT: normal ENT inspection, hearing grossly normal Neck: supple, no adenopathy Respiratory/Chest: chest non-tender, lungs clear, normal breath sounds, no respiratory distress, no accessory muscle use Cardiovascular: regular rate, rhythm Abdomen / GI: normal bowel sounds, non tender, soft Extremities: no pedal edema Neurologic/Psychiatric: + motor weakness (right-sided) Skin: + pertinent finding (rash on right upper extremity resolved. Some redness along the left inner arm) (Alessandra Gregorio MD) Review of Systems: Constitutional: No fever Respiratory: No cough, No shortness of breath Cardiovascular: No chest pain Integumentary: No rash Physical Exam: General Appearance: no apparent distress Respiratory/Chest: lungs clear, no respiratory distress Cardiovascular: regular rate, rhythm Neurologic/Psychiatric: alert, oriented x 3 Skin: warm/dry, no rash (Arleth Simon M.D.) Hospital Course 51-year-old female was sent to the ER with complaints of a rash and hives . She was recently admitted from 09/14 -09/17 due to sepsis thought to be secondary to dental infection and possibly community-acquired pneumonia. She was treated with IV clindamycin, Levaquin and had also received vancomycin for the first 48 hours . she had improved greatly and was discharged home with by mouth clindamycin for about 10 days and was supposed to follow up with her dentist. The patient complained about hives, rash on her right abdomen, back, right upper extremity and also a right upper axillary swelling the patient does have a history of allergies to other medications but is not certain about taking clindamycin prior to this episode. Drug reaction: The patient was treated with Benadryl while in the ER , her symptoms greatly improved and her rash resolved Clindamycin was stopped Possible pneumonia: - The patient was discharged with doxycycline to cover oral infection as well as pneumonia She is to follow up with her dentist as scheduled COPD : - Recommended to continue home inhalers Follow-up with PCP in about a week Follow up with dentist as scheduled Total Time Spent: Less than 30 minutes This includes examination of the patient, discharge planning, medication reconciliation, and communication with other providers. (Alessandra Gregorio MD) I have reviewed the medical record and performed a history and physical examination of this patient today. I have discussed the case with Dr. Gregorio. The above note reflects my findings, conclusions, and recommendations. Total Time Spent: Greater than 30 minutes (35) (Arleth Simon M.D.) Discharge Instructions Please refer to the electronic Patient Visit Report (Discharge Instructions) for additional information. (Alessandra Gregorio MD) Follow-Up Follow up with dentist as scheduled. Follow-up with PCP in about a week (Alessandra Gregorio MD) Additional Copies To Andrew Rodriguez M.D. Resident Tracking Resident Involvement: Resident Care Provided Care Provided: [facility] (Alessandra Gregorio MD)
== END 2016-09-21 13:00 | disposition home or self-care (01) | DRG 606 ==
LOC: ENRESERVTM → ENRESERVDT → C.EDB 12:08 → C.MED 16:47
PROVIDERS: ADMIT Family Medicine; ATTEND Family Medicine
DX: L27.0 Generalized skin eruption due to drugs and medicaments taken internally (principal); J18.9 Pneumonia, unspecified organism; I69.151 Hemiplegia and hemiparesis following nontraumatic intracerebral hemorrhage affecting right dominant side; L29.9 Pruritus, unspecified; T36.8X5A Adverse effect of other systemic antibiotics, initial encounter; Y92.009 Unspecified place in unspecified non-institutional (private) residence as the place of occurrence of the external cause; K04.7 Periapical abscess without sinus; R22.31 Localized swelling, mass and lump, right upper limb; H92.01 Otalgia, right ear; I95.9 Hypotension, unspecified; J44.9 Chronic obstructive pulmonary disease, unspecified; Z86.718 Personal history of other venous thrombosis and embolism; Z87.891 Personal history of nicotine dependence; Z95.828 Presence of other vascular implants and grafts; Z79.51 Long term (current) use of inhaled steroids; Z79.899 Other long term (current) drug therapy; Z88.0 Allergy status to penicillin; Z88.2 Allergy status to sulfonamides; Z88.8 Allergy status to other drugs, medicaments and biological substances

== ENCOUNTER → 2017-04-16 | Outpatient (CLI) | payer OTHER ==
[~2017-04-16] MED LIST changes: -CLIN300C2 PO; -HYDR-5688 PO
--- NOTE | 2017-04-19 07:50 | MAMMOGRAPHY REPORT ---
BILATERAL DIGITAL SCREENING MAMMOGRAM TOMOSYNTHESIS WITH CAD: 04/16/2017 CLINICAL HISTORY: Routine screening. TECHNIQUE: Breast tomosynthesis in addition to standard 2D mammography was performed. Current study was also evaluated with a Computer Aided Detection (CAD) system. COMPARISON: Comparison is made to exams dated: 04/28/2012 mammogram, 04/27/2011 mammogram, 06/27/2010 ma mmogram, 04/08/2010 mammogram, and 03/28/2009 mammogram - [facility]. BREAST COMPOSITION: The tissue of both breasts is heterogeneously dense, which may obscure small mas ses. FINDINGS: The examination is suboptimal due to inability of the patient to adequately position for al l of the views. Within this limitation, there is stable expected architectural distortion in the rig ht upper outer quadrant from a prior excisional biopsy. No new suspicious mass, architectural distort ion or cluster of microcalcifications is seen. IMPRESSION: ACR BI-RADS CATEGORY 2: BENIGN There is no mammographic evidence of malignancy. A 1 year screening mammogram is recommended. The pa tient will receive written notification of the results. Approximately 10% of breast cancers are not detected with mammography. A negative mammographic report should not delay biopsy if a clinically suggestive mass is present. Dona Krishna M.D. ay/:04/17/2017 09:21:42 Pocket Machine Operator: Baylee ELLIS(Alex)(M), [facility] letter sent: Normal 1/2 BI-RADS Code: ACR BI-RADS Category 2: Benign
== END | disposition home or self-care (01) ==
LOC: C.MAMM 09:32
PROVIDERS: ATTEND Internal Medicine
DX: Z12.31 Encounter for screening mammogram for malignant neoplasm of breast (principal)

== ENCOUNTER → 2017-06-24 | Outpatient (CLI) | payer OTHER ==
--- NOTE | 2017-06-24 08:53 | DIAGNOSTIC IMAGING REPORT ---
CHEST 2 VIEWS ROUTINE CLINICAL HISTORY: J44.9 Chronic obstructive pulmonary [id number] COMPARISON STUDY: 09/20/2016 FINDINGS: The cardiac and mediastinal contours remain stable. The chest has an emphysematous configuration. There is a calcified granuloma within the right middle lobe. There is right apical pleural thickening. There is interval decrease in the size of the right upper lobe pulmonary masslike opacity which currently measures 33 mm in diameter.[ There are persistent postsurgical changes on the right IMPRESSION: 1. Interval decrease in the size of the nonspecific right upper lobe masslike opacity which probably measures 33 mm. 2. Developing right apical pleural thickening 3. Emphysema 4. Postsurgical changes on the right Electronically signed by: Kalia Ashton M.D. 06/24/2017 8:51 AM Dictated Date/Time: 06/24/2017 8:48 AM
== END | disposition home or self-care (01) ==
LOC: C.LAB1850 08:37
PROVIDERS: ATTEND Internal Medicine
DX: J44.9 Chronic obstructive pulmonary disease, unspecified (principal)

== ENCOUNTER → 2017-08-16 | Outpatient (CLI) | payer OTHER ==
--- NOTE | 2017-08-16 10:03 | DIAGNOSTIC IMAGING REPORT ---
CT SCAN OF THE CHEST WITHOUT IV CONTRAST CLINICAL HISTORY: Follow-up lung cancer. COMPARISON STUDY: Chest CT dated 07/22/2016 and 01/29/2014. TECHNIQUE: CT scan of the thorax was performed from the thoracic inlet to the upper abdomen. Images are reviewed in the axial, sagittal, and coronal planes. IV contrast was not administered for this examination as per the referring clinician. A dose lowering technique was utilized adhering to the principles of ALARA. The examination is degraded by streak artifact from the patient's arms which could not be elevated above the chest as well as by motion artifact. CT DOSE: 291.19 mGycm FINDINGS: Thyroid: Imaged portions of the thyroid gland are normal in size and heterogeneous in attenuation. Thoracic aorta: There is mild atherosclerotic calcification of the thoracic aorta, which is normal in caliber and demonstrates standard 3-vessel arch anatomy. Heart: The heart is normal in size and without pericardial effusion. Lungs and pleural spaces: There is advanced emphysema. Again seen are foci of parenchymal scarring and postoperative change from right upper lobe resection. No airspace consolidation or pleural effusion is identified. There are 2 new irregular right apical densities as compared to 07/22/2016. A density along the fissure on image #63 measures 1.6 x 1.4 cm, and a more superiorly located density on image #56 measures 1.7 x 0.8 cm. No left-sided pulmonary lesions are identified. The trachea and central airways are patent. A large calcified granuloma is again seen in the right lower lung. Mediastinum: There is no mediastinal lymphadenopathy. Marielos: Not well assessed without IV contrast. Axillae: There is no axillary lymphadenopathy. Upper abdomen: Partially visualized upper abdominal viscera is within normal limits. Skeletal structures: No lytic or blastic bony lesions are seen. IMPRESSION: 1. Advanced emphysema and postoperative change from right upper lobe pulmonary resection. 2. There are 2 new irregular densities at the right apex, which were not seen on 07/22/2016. Although these could potentially be on an infectious/inflammatory basis, recurrent neoplasm is the diagnosis of exclusion. A 1-2 month follow-up chest CT is recommended for reassessment. 3. No mediastinal adenopathy is identified. No left-sided pulmonary lesion is seen. Electronically signed by: David Veronica M.D. 08/16/2017 9:53 AM Dictated Date/Time: 08/16/2017 9:33 AM
== END | disposition home or self-care (01) ==
LOC: C.CTS 09:12
PROVIDERS: ATTEND Internal Medicine Pulmonary Disease
DX: C34.90 Malignant neoplasm of unspecified part of unspecified bronchus or lung (principal); J43.9 Emphysema, unspecified

== ENCOUNTER → 2017-09-01 | Outpatient (CLI) | payer OTHER ==
--- NOTE | 2017-09-01 13:07 | DIAGNOSTIC IMAGING REPORT ---
PET/CT HISTORY: Non-small cell lung cancer. C34.90 MALIGNANT NEOPLASM UNSPECIFIED BRONCHUS/EVIE TECHNIQUE: PET/CT was performed from the base of the skull through the pelvis following the intravenous administration of 12.9 mCi of F18-FDG. Non-contrast CT imaging was performed over the same range without breath-hold for attenuation correction of PET images and anatomic correlation, but not for primary interpretation as it is not of standard diagnostic quality. CT DOSE: COMPARISON: Chest CT 08/16/2017. PET CT 06/28/2013. FINDINGS: HEAD AND NECK: There is no FDG-avid disease or significant lymphadenopathy in the imaged portions of the head and the neck. CHEST: Postoperative changes consistent with a prior right upper lobectomy. Moderate emphysema. Irregular cystic focus at the right lung apex remains unchanged. There is an 8 mm irregular density along the inferolateral border of this cystic focus on image 50. This demonstrates mild FDG uptake with an SUV max of 2.5. The 15 x 13 mm nodule within the right upper lobe on image 54 demonstrates moderate FDG uptake with an SUV max of 4.8. The more posterior 1 cm nodular density on image 53 does not demonstrate significant FDG uptake. Calcified granuloma within the right lower lobe. Right apical pleural-parenchymal thickening remains unchanged. This demonstrates mild FDG uptake with an SUV max of 2. No FDG avid or enlarged mediastinal or hilar lymph nodes. ABDOMEN/PELVIS: Below the diaphragm, tracer is distributed physiologically in the gastrointestinal and genitourinary tracts. There is no significant lymphadenopathy and no FDG-avid disease. Bulky appearance to the uterus, unchanged. There is pelvic floor collapse. Fluid-filled colon. No adrenal gland masses. IVC filter. MUSCULOSKELETAL: There is no FDG-avid or destructive bone lesion. IMPRESSION: 1. Moderate FDG uptake associated with the 15 x 13 mm right upper lobe nodule. Therefore, this is concerning for recurrent/metastatic disease. 2. The more posterior 1 cm right upper lobe nodular density does not demonstrate abnormal FDG uptake. 3. There is an 8 mm irregular density along the inferolateral border of the right apical cystic focus which demonstrates mild FDG uptake. This is indeterminate and could be due to posttreatment changes or recurrent disease. 4. Right apical pleural-parenchymal density persists and also demonstrates mild FDG uptake. Electronically signed by: iNcko Schulte M.D. 09/01/2017 1:06 PM Dictated Date/Time: 09/01/2017 12:54 PM
== END | disposition home or self-care (01) ==
LOC: C.PET 10:00
PROVIDERS: ATTEND Internal Medicine Pulmonary Disease
DX: C34.90 Malignant neoplasm of unspecified part of unspecified bronchus or lung (principal); R91.8 Other nonspecific abnormal finding of lung field

== ENCOUNTER → 2017-10-08 | Outpatient (CLI) | payer OTHER ==
[2017-10-08 16:49] LABS: BASO % 0.2 %; BASO ABS # 0.01 K/uL (0-0.2); EOS % 2.7 %; EOS ABS # 0.15 K/uL (0-0.5); HEMATOCRIT 38.6 % (37-47); LYMPH % 32.4 %; LYMPH ABS # 1.81 K/uL (1.2-3.4); MEAN CELL VOLUME 83.2 fL (80-100); MEAN CORPUSCULAR HGB CONC 33.7 g/dl (32-36); MONO % 8.6 %; MONO ABS # 0.48 K/uL (0.11-0.59); NEUT % 56.1 %; NEUT ABS # 3.14 K/uL (1.4-6.5); PLATELET COUNT 222 K/uL (130-400); RED CELL DISTRIBUTION WIDTH CV 14.5 % (11.5-14.5); RED CELL DISTRIBUTION WIDTH SD 44.4 fL (36.4-46.3); WHITE BLOOD COUNT 5.59 K/uL (4.8-10.8)
[2017-10-08 16:56] LABS: PTT PATIENT 26.8 SECONDS (21.0-31.0)
[2017-10-08 17:12] LABS: ALBUMIN 3.9 gm/dl (3.4-5.0); ALKALINE PHOSPHATASE 61 U/L (45-117); ALT/SGPT 23 U/L (12-78); AST/SGOT 14 U/L (15-37); BLOOD UREA NITROGEN 10 mg/dl (7-18); CALCIUM 8.6 mg/dl (8.5-10.1); CARBON DIOXIDE 25 mmol/L (21-32); CREATININE 0.86 mg/dl (0.60-1.20); GLUCOSE 66 mg/dl (70-99); POTASSIUM 3.5 mmol/L (3.5-5.1); SODIUM 142 mmol/L (136-145); TOTAL PROTEIN 7.1 gm/dl (6.4-8.2)
== END | disposition home or self-care (01) ==
LOC: C.LABBFT 15:30
PROVIDERS: ATTEND Internal Medicine
DX: J44.9 Chronic obstructive pulmonary disease, unspecified (principal); D69.2 Other nonthrombocytopenic purpura

== ENCOUNTER → 2017-12-14 | Outpatient (CLI) | payer OTHER ==
[~2017-12-14] MED LIST changes: +IBUP-1050 PO; +SALI0.6510 INT VIT; +ULT50X PO
--- NOTE | 2017-12-14 11:27 | DIAGNOSTIC IMAGING REPORT ---
CHEST 2 VIEWS ROUTINE CLINICAL HISTORY: R91.8 Multiple lung nodules on [id number] COMPARISON STUDY: 12/12/2017 FINDINGS: The cardiac and mediastinal contours remain stable. The right-sided chest tube remains unchanged in position. There is a moderate right-sided pneumothorax with a pleural separation of 7.7 cm. There is a small right pleural effusion. There is no focal pulmonary consolidation on the left. There is a right lower lung zone calcified granuloma.[ IMPRESSION: 1. Increasing right-sided hydropneumothorax with a pleural separation of 7.7 cm. 2. No change in the position of the right-sided chest tube. Electronically signed by: Kalia Ashton M.D. 12/14/2017 11:25 AM Dictated Date/Time: 12/14/2017 11:23 AM
== END | disposition home or self-care (01) ==
LOC: C.RAD 11:03
PROVIDERS: ATTEND Surgery
DX: R91.8 Other nonspecific abnormal finding of lung field (principal); J94.8 Other specified pleural conditions

== ENCOUNTER → 2017-12-16 | Outpatient (CLI) | payer OTHER ==
--- NOTE | 2017-12-16 09:04 | DIAGNOSTIC IMAGING REPORT ---
CHEST 2 VIEWS ROUTINE CLINICAL HISTORY: J93.9 [id number] pneumothorax COMPARISON STUDY: 12/14/2017 FINDINGS: Right upper lung pneumothorax perhaps slightly diminished in volume compared to the prior study. Maximum pleural separation currently is 7 cm improved from 7.6 cm. There is a chest tube is unchanged in position. Small right effusion is unaltered. Left lung remains generally clear. IMPRESSION: Stable to slightly improved right-sided pneumothorax. No change in location of the patient's right-sided chest tube. The above report was generated using voice recognition software. It may contain grammatical, syntax or spelling errors. Electronically signed by: Jian Carrasquillo M.D. 12/16/2017 8:13 AM Dictated Date/Time: 12/16/2017 8:11 AM
== END | disposition home or self-care (01) ==
LOC: C.RAD 07:46
PROVIDERS: ATTEND Physician Assistant
DX: J93.9 Pneumothorax, unspecified (principal)

== ENCOUNTER → 2017-12-20 | Outpatient (CLI) | payer OTHER ==
--- NOTE | 2017-12-20 08:26 | DIAGNOSTIC IMAGING REPORT ---
CHEST 2 VIEWS ROUTINE CLINICAL HISTORY: J93.9 [id number] COMPARISON STUDY: 12/16/2017 FINDINGS: Right-sided chest tube unchanged in position. Persistent right sided hydropneumothorax. Pleural separation at the right pulmonary apex is 6.2 cm. This may be slightly improved. Small right effusion is unchanged. Left lung remains clear. IMPRESSION: Unchanged to slightly improved right-sided hydropneumothorax. Pleural separation currently is 6.2 cm slightly improved from the prior study of 6.9 cm. The above report was generated using voice recognition software. It may contain grammatical, syntax or spelling errors. Electronically signed by: Jian Carrasquillo M.D. 12/20/2017 8:25 AM Dictated Date/Time: 12/20/2017 8:23 AM
== END | disposition home or self-care (01) ==
LOC: C.RAD 08:09
PROVIDERS: ATTEND Surgery
DX: J94.8 Other specified pleural conditions (principal); J93.9 Pneumothorax, unspecified

== ENCOUNTER → 2017-12-27 | Outpatient (CLI) | payer OTHER ==
--- NOTE | 2017-12-27 08:03 | DIAGNOSTIC IMAGING REPORT ---
TWO VIEW CHEST CLINICAL HISTORY: Follow-up pneumothorax. FINDINGS: PA and lateral chest radiographs are compared to study dated 12/20/2017. The cardiomediastinal silhouette is unremarkable. Emphysema and chronic interstitial thickening are similar to previous. There are postoperative changes and volume loss from right-sided pulmonary resection. Suture material projects over the right upper lung. A right-sided chest tube is in place. A trace residual right apical pneumothorax is identified. This has decreased in size from 12/20/2017, and there is approximately 1.3 cm of pleural separation. Pleural fluid is seen at the right lung base. A calcified granuloma is again seen in the right lung. No airspace consolidation is seen typical for pneumonia. The skeletal structures are osteopenic. The bony thorax appears intact. IVC filter is partially imaged in the upper abdomen. IMPRESSION: 1. A right-sided chest tube is unchanged in position. There is a trace residual right apical pneumothorax, which has decreased in size from 12/20/2017. 2. Emphysema and postoperative change from right-sided pulmonary resection. 3. Pleural fluid is noted at the right lung base. Electronically signed by: David Veronica M.D. 12/27/2017 8:01 AM Dictated Date/Time: 12/27/2017 7:36 AM
== END | disposition home or self-care (01) ==
LOC: C.RAD 07:11
PROVIDERS: ATTEND Physician Assistant
DX: J93.9 Pneumothorax, unspecified (principal); J43.9 Emphysema, unspecified

== ENCOUNTER → 2017-12-27 | Outpatient (CLI) | payer OTHER ==
--- NOTE | 2017-12-27 13:19 | DIAGNOSTIC IMAGING REPORT ---
TWO VIEW CHEST CLINICAL HISTORY: Follow-up pneumothorax status post chest tube removal. FINDINGS: PA and lateral chest radiographs are compared to study performed earlier the same day 12/27/2017. The cardiomediastinal silhouette is unremarkable. Emphysema and chronic interstitial thickening are similar to previous. There are postoperative changes and volume loss from right-sided pulmonary resection. Suture material projects over the right upper lung. A right-sided chest tube has been removed. A right apical pneumothorax has increased in size from earlier today, now with approximately 3 cm of pleural separation. Pleural fluid is seen at the right lung base. A calcified granuloma is again seen in the right lung. No airspace consolidation is seen typical for pneumonia. The skeletal structures are osteopenic. The bony thorax appears intact. IMPRESSION: 1. A right-sided chest tube has been removed. There is an enlarging right apical pneumothorax as compared to today's earlier examination. 2. Emphysema and postoperative change from right-sided pulmonary resection. 3. Pleural fluid is noted at the right lung base. Electronically signed by: David Veronica M.D. 12/27/2017 1:17 PM Dictated Date/Time: 12/27/2017 1:15 PM
== END | disposition home or self-care (01) ==
LOC: C.RAD 12:33
PROVIDERS: ATTEND Surgery
DX: J93.9 Pneumothorax, unspecified (principal); J43.9 Emphysema, unspecified

== ENCOUNTER → 2018-01-06 | Outpatient (CLI) | payer OTHER ==
--- NOTE | 2018-01-06 10:26 | DIAGNOSTIC IMAGING REPORT ---
CHEST 2 VIEWS ROUTINE CLINICAL HISTORY: 52 years-old Female presenting with J93.9 [id number]. TECHNIQUE: PA and lateral views of the chest were obtained. COMPARISON: 12/27/2017. FINDINGS: Lateral views degraded by positioning of the arms at the sides. Cardiomediastinal silhouette normal. Persistent though decreased small right apical pneumothorax. A pleural separation of 21 mm is now evident, previously 31 mm. Suture margins noted in the right perihilar and upper lung. Architectural distortion of the right lung base. No right pleural effusion. Left lung and pleural space clear. Osseous structures normal. Partially visualized IVC filter at the level of L3. IMPRESSION: 1. Slight interval decrease in the small right apical pneumothorax. 2. Postsurgical changes of the right lung. Electronically signed by: Jeff Thorne M.D. 01/06/2018 10:25 AM Dictated Date/Time: 01/06/2018 10:23 AM
== END | disposition home or self-care (01) ==
LOC: C.RAD 10:06
PROVIDERS: ATTEND Physician Assistant
DX: J93.9 Pneumothorax, unspecified (principal)

== ENCOUNTER 2019-04-20 16:36 | Inpatient (IN) ==
[2019-04-20] MEDS ORDERED: KETOROLAC TROMETHAMINE 15 MG/ML VIAL IV STA (16:46)
[2019-04-20] MEDS ORDERED: ONDANSETRON INJ 2 MG/ML 2 ML VIAL IV STA (16:46)
[2019-04-20] MEDS ORDERED: SODIUM CHLORIDE 0.9% 1000ML 1,000 ML IV ONE (16:46)
[2019-04-20] MEDS ORDERED: ACETAMINOPHEN 1,000 MG/100 ML VIAL IV STA (16:46)
[2019-04-20] MEDS ORDERED: CEFEPIME 2,000 MG/20 ML VIAL IV STA (16:49)
--- NOTE | 2019-04-20 17:20 | Emergency Department Note ---
Entered by Loren Fabian acting as a scribe for History of Present Illness General Chief complaint: Fever Stated complaint: FEVER,FATIGUE Time Seen by Provider: 04/20/19 16:41 History of Present Illness Provider complaint: illness Onset (ago): day(s) 3 Pain Consistency: + other (episode) Maximum Pain Intensity: 5 Quality: + other (illness) Associated symptoms: + denies other symptoms (urinary symptoms, diarrhea, sick contact, tick bites), + cough (productive), + fever/chills, + weakness and + other (congestion, intermittent lower abdominal pain that radiates to her back, extreme dehydration, fall today); no nausea/vomiting and no rash Treatments prior to arrival: none The patient is a 54 year old female who presents to the ED with complaints of an episode of an illness that started 3 days ago. The patient states that she has had a productive cough, congestion, fever, weakness and intermittent lower a bdominal pain that radiates to her back. The patient states that she is also extremely dehydrated. The patient notes that she has not been taking any medication to help control the fever or pain. The patient states that she fell today secondary to weakness. The patient denies urinary symptoms, vomiting, diarrhea, rash, sick contacts and tick bites. Home Medications Home Medications Medication Instructions Recorded Confirmed Type albuterol sulfate 90 mcg/actuation 2 puffs INH QID PRN #8 gm 12/29/18 04/20/19 Rx aerosol inhaler mometasone-formoterol HFA 200 2 puffs INH BID #13 gm 01/09/19 04/20/19 Rx mcg-5 mcg/actuation aerosol inhaler ibuprofen 200 mg capsule 200 mg PO Q6H PRN 03/08/19 04/20/19 History topiramate 200 mg tablet 200 mg PO BID #60 tab 03/15/19 04/20/19 Rx tiotropium bromide 18 mcg capsule 1 cap INHALATION DAILY #30 puffs 03/24/19 04/20/19 Rx with inhalation device linaclotide 290 mcg capsule 290 mcg PO DAILY cap 04/04/19 04/20/19 History Allergies Allergy/AdvReac Type Severity Reaction Status Date / Time guaifenesin Allergy Intermediate HIVES, Verified 04/20/19 17:12 TAKEN AT SAME TIME AUGMENTIN Iodinated Contrast Media Allergy Intermediate HIVES Verified 04/20/19 17:12 lubiprostone Allergy Intermediate HIVES Verified 04/20/19 17:12 oxcarbazepine Allergy Intermediate HIVES Verified 04/20/19 17:12 Penicillins Allergy Intermediate HIVES, Verified 04/20/19 17:12 TAKEN AT SAME TIME ENTEX phenylephrine Allergy Intermediate HIVES, Verified 04/20/19 17:12 TAKEN AT SAME TIME AUGMENTIN phenylpropanolamine Allergy Intermediate HIVES, Verified 04/20/19 17:12 TAKEN AT SAME TIME AUGMENTIN red dye Allergy Intermediate HIVES Verified 04/20/19 17:12 varenicline Allergy Intermediate HIVES Verified 04/20/19 17:12 sulfamethoxazole Allergy Mild GI UPSET Verified 04/20/19 17:12 trimethoprim Allergy Mild HIVES Verified 04/20/19 17:12 amoxicillin [From Augmentin] Allergy Verified 04/20/19 17:12 clavulanic acid Allergy Verified 04/20/19 17:12 [From Augmentin] Sulfa (Sulfonamide AdvReac Mild "SULFA Verified 04/20/19 17:12 Antibiotics) DRUGS": GI UPSET/HIVES Past Med/Surg History Medical History Acute sinusitis COPD (chronic obstructive pulmonary disease) (Chronic) Granulomatous lung disease (Chronic) Lung cancer Lung mass Malnourished (05/11/13) Primary adenocarcinoma of upper lobe of right lung Surgical History History of breast biopsy History of bronchoscopy History of colonoscopy History of craniotomy History of inferior vena caval filter placement History of lobectomy of lung History of tonsillectomy and adenoidectomy History of tubal ligation Family History Father Lung cancer Tobacco use COPD (chronic obstructive pulmonary disease) Mother Nephrolithiasis Brother Nephrolithiasis Obstructive sleep apnea Inguinal hernia Grandmother Breast cancer Aunt Breast cancer Grandfather Colon cancer Social History Preferred Language: Vietnamese Feels Safe at Home: Yes Smoking Status: Former smoker Cigarettes Per Day: 20 ; Review of Systems See HPI for pertinent positives & negatives. and A total of 10 systems reviewed and were otherwise negative Physical Exam Vital Signs Vital Signs - 24 hr 04/20/19 16:38 04/20/19 17:03 04/20/19 17:27 Temperature 37.6 C H Temperature Source Oral Pulse Rate 116 H 100 H 95 H Pulse Rate from SpO2 Sensor 96 H Respiratory Rate 16 27 H 18 Respiratory Effort / Characteristics Non-Labored Respiratory Depth Normal Blood Pressure 97/67 L 100/61 Blood Pressure Mean 77 72 Pulse Oximetry 98 96 Oxygen Delivery Method Room Air Sepsis Recent Fever Within 48 Hours No Sepsis New/Unexplained Change in Mental Status No Sepsis Action Taken by Nursing No Action Required 04/20/19 17:28 04/20/19 17:30 04/20/19 17:31 Temperature Temperature Source Pulse Rate 95 H 93 H 93 H Pulse Rate from SpO2 Sensor 94 H 93 H Respiratory Rate 20 20 22 Respiratory Effort / Characteristics Respiratory Depth Blood Pressure 99/60 L Blood Pressure Mean 71 Pulse Oximetry 96 96 96 Oxygen Delivery Method Room Air Sepsis Recent Fever Within 48 Hours Sepsis New/Unexplained Change in Mental Status Sepsis Action Taken by Nursing 04/20/19 17:49 04/20/19 18:00 04/20/19 18:01 Temperature 38.1 C H Temperature Source Oral Pulse Rate 90 91 H Pulse Rate from SpO2 Sensor 90 91 H Respiratory Rate 22 21 Respiratory Effort / Characteristics Respiratory Depth Blood Pressure 92/55 L Blood Pressure Mean 59 Pulse Oximetry 96 96 Oxygen Delivery Method Sepsis Recent Fever Within 48 Hours Sepsis New/Unexplained Change in Mental Status Sepsis Action Taken by Nursing 04/20/19 18:30 04/20/19 18:31 Temperature Temperature Source Pulse Rate 92 H 92 H Pulse Rate from SpO2 Sensor 91 H 93 H Respiratory Rate 26 H 23 Respiratory Effort / Characteristics Respiratory Depth Blood Pressure 94/56 L Blood Pressure Mean 62 Pulse Oximetry 96 97 Oxygen Delivery Method Sepsis Recent Fever Within 48 Hours Sepsis New/Unexplained Change in Mental Status Sepsis Action Taken by Nursing GENERAL: Patient is in no acute distress. HEENT: No acute trauma, normocephalic atraumatic, mucous membranes significantly dry, no nasal congestion, no scleral icterus. Throat mildly erythematous without exudate. NECK: No stridor, no adenopathy, no meningismus, trachea is midline. LUNGS: Clear to auscultation bilaterally, no wheeze, no rhonchi, breath sounds equal. HEART: Tachycardic with regular rhythm, no murmurs. ABDOMEN: Soft, nontender, bowel sounds positive, no hernias, no peritonitis. EXTREMITIES: No cyanosis or edema, full range of motion of all the joints without pain or difficulty, no signs for acute trauma. NEUROLOGIC: Awake and alert, right arm and right leg weak compare to left side. Ox3. SKIN: No rash, no jaundice, no diaphoresis. Course Course 1642: Past medical records reviewed. The patient was evaluated in room B2. A complete history and physical exam was performed. 3: I updated the patient and her on the test results and plan for admission. She verbally agrees and understands. 1825: I discussed the patient's case with Dr. Landaverde [facility] Hospitalist. She will evaluate the patient for further management. Consultations Consultation #1: I discussed the patient's case with Dr. Landaverde [facility] Hospitali . She will evaluate the patient for further management. Time: 18:26 Administered Medications Sodium Chloride (Nss 1000ml) 500 mls @ 999 mls/hr IV .Q31M ONE Stop: 04/20/19 19:07 Last Admin: 04/20/19 18:42 Dose: 999 mls/hr Documented by: [id number] Discontinued Medications Sodium Chloride (Nss 1000ml) 1,000 mls @ 999 mls/hr IV .Q1H1M ONE Stop: 04/20/19 17:46 Last Infusion: 04/20/19 18:38 Dose: 0 mls/hr Documented by: [id number] Admin: 04/20/19 17:16 Dose: 999 mls/hr Documented by: [id number] Acetaminophen (Ofirmev) 1,000 mg in 100 mls @ 400 mls/hr IV NOW STA Stop: 04/20/19 17:00 Last Admin: 04/20/19 17:00 Dose: Not Given Documented by: [id number] Cefepime HCl (Maxipime) 2,000 mg in 20 mls @ 5 mls/min IV NOW STA; Protocol Stop: 04/20/19 16:52 Last Admin: 04/20/19 17:30 Dose: 5 mls/min Documented by: [id number] Ketorolac Tromethamine (Toradol) 15 mg IV NOW STA Stop: 04/20/19 16:47 Last Admin: 04/20/19 17:16 Dose: 15 mg Documented by: [id number] Ondansetron HCl (Zofran) 4 mg IV NOW STA Stop: 04/20/19 16:47 Last Admin: 04/20/19 17:12 Dose: 4 mg Documented by: [id number] Critical Care Time Critical Care Time: Yes Total Critical Care Time: 36 I have personally spent 36 minutes of critical care time in the direct management of this patient. This includes bedside care, interpretation of diagnostic studies, and testing, discussion with consultants, patient, and family members, and other required patient management activities. This 36 minutes is in excess of all separately billable procedures. Medical Decision Making Differential Diagnosis Differentials include sepsis, bacteremia, pneumonia, UTI, strep, pharyngitis, viral illness, dehydration, electrolyte imbalance, renal failure, liver failure. Medical Records Attestation: I reviewed the patient's medical records. Home Medications Current Medication List: was personally reviewed by me Laboratory Data Attestation: I reviewed the patient's lab results. Result diagrams: 04/20/19 17:08 04/20/19 17:08 Lab Results 04/20/19 04/20/19 04/20/19 Range/Units 17:08 17:08 17:08 WBC 24.35 H (4.8-10.8) K/uL RBC 4.63 (4.2-5.4) M/uL Hgb 13.8 (12.0-16.0) g/dL Hct 40.3 (37-47) % MCV 87.0 (80-100) fL MCH 29.8 (25-34) pg MCHC 34.2 (32-36) g/dL RDW Std Deviation 45.8 (36.4-46.3) fL RDW Coeff of Liyah 14.3 (11.5-14.5) % Plt Count 223 (130-400) K/uL MPV 9.4 (7.4-10.4) fL Immature Gran % (Auto) 0.5 % Neut % (Auto) 86.0 % Lymph % (Auto) 6.2 % [place] % (Auto) 7.2 % Eos % (Auto) 0.0 % Baso % (Auto) 0.1 % Immature Gran # (Auto) 0.12 H (0.00-0.02) K/uL Neut # (Auto) 20.95 H (1.4-6.5) K/uL Lymph # (Auto) 1.51 (1.2-3.4) K/uL [place] # (Auto) 1.75 H (0.11-0.59) K/uL Eos # (Auto) 0.00 (0-0.5) K/uL Baso # (Auto) 0.02 (0-0.2) K/uL PT 12.4 H (9.0-12.0) Seconds INR 1.2 H (0.9-1.1) APTT 29.5 (21.0-31.0) Seconds PTT Ratio 1.1 Sodium (136-145) mmol/L Potassium (3.5-5.1) mmol/L Chloride (98-107) mmol/L Carbon Dioxide (21-32) mmol/L Anion Gap (3-11) BUN (7-18) mg/dl Creatinine (0.6-1.2) mg/dl Est Cr Clr Drug Dosing ml/min Est GFR ( Amer) Est GFR (Non-Af Amer) BUN/Creatinine Ratio (10-20) Glucose (70-99) mg/dl Lactate (0.4-2.0) mmol/L Calcium (8.5-10.1) mg/dl Magnesium (1.8-2.4) mg/dl Total Bilirubin (0.2-1) mg/dl AST (15-37) U/L ALT (12-78) U/L Alkaline Phosphatase (45-117) U/L Troponin I (0-0.045) ng/ml Total Protein (6.4-8.2) gm/dl Albumin (3.4-5.0) gm/dl Globulin (2.5-4.0) gm/dl Albumin/Globulin Ratio (0.9-2) Procalcitonin 7.39 H (0-0.5) ng/ml 04/20/19 04/20/19 Range/Units 17:08 17:08 WBC (4.8-10.8) K/uL RBC (4.2-5.4) M/uL Hgb (12.0-16.0) g/dL Hct (37-47) % MCV (80-100) fL MCH (25-34) pg MCHC (32-36) g/dL RDW Std Deviation (36.4-46.3) fL RDW Coeff of Liyah (11.5-14.5) % Plt Count (130-400) K/uL MPV (7.4-10.4) fL Immature Gran % (Auto) % Neut % (Auto) % Lymph % (Auto) % [place] % (Auto) % Eos % (Auto) % Baso % (Auto) % Immature Gran # (Auto) (0.00-0.02) K/uL Neut # (Auto) (1.4-6.5) K/uL Lymph # (Auto) (1.2-3.4) K/uL [place] # (Auto) (0.11-0.59) K/uL Eos # (Auto) (0-0.5) K/uL Baso # (Auto) (0-0.2) K/uL PT (9.0-12.0) Seconds INR (0.9-1.1) APTT (21.0-31.0) Seconds PTT Ratio Sodium 138 (136-145) mmol/L Potassium 3.2 L (3.5-5.1) mmol/L Chloride 108 H (98-107) mmol/L Carbon Dioxide 19 L (21-32) mmol/L Anion Gap 11.0 (3-11) BUN 17 (7-18) mg/dl Creatinine 1.08 (0.6-1.2) mg/dl Est Cr Clr Drug Dosing 47.1 ml/min Est GFR ( Amer) 67.4 Est GFR (Non-Af Amer) 58.2 BUN/Creatinine Ratio 15.8 (10-20) Glucose 106 H (70-99) mg/dl Lactate 1.4 (0.4-2.0) mmol/L Calcium 9.3 (8.5-10.1) mg/dl Magnesium 1.8 (1.8-2.4) mg/dl Total Bilirubin 0.9 (0.2-1) mg/dl AST 11 L (15-37) U/L ALT 18 (12-78) U/L Alkaline Phosphatase 67 (45-117) U/L Troponin I < 0.015 (0-0.045) ng/ml Total Protein 8.0 (6.4-8.2) gm/dl Albumin 3.7 (3.4-5.0) gm/dl Globulin 4.3 H (2.5-4.0) gm/dl Albumin/Globulin Ratio 0.9 (0.9-2) Procalcitonin (0-0.5) ng/ml Imaging Data Radiologist's Impression: Radiology results as stated below per my review and the radiologist's interpretation: XR chest 1V portable CLINICAL HISTORY: 54 years-old Female presenting with Sepsis. TECHNIQUE: Portable upright AP view of the chest was obtained. COMPARISON: 02/07/[address] from 01/04/2019. FINDINGS: Cardiomediastinal silhouette normal. Architectural distortion of the right lung compatible with underlying right upper lobectomy. Calcified granuloma noted at the right lung base. Suture margin projects over the right apex. There is also new paramediastinal right upper lung opacity. This is new from prior. Left lung and pleural space clear. Osteopenia suspected. Upper abdomen normal. IMPRESSION: 1. Interval development of paramediastinal right upper lung opacity along a suture margin. This is suspicious for recurrent disease or a focal infiltrate. CT chest is recommended for better characterization. Electronically signed by: Jeff Thorne M.D. 04/20/2019 5:53 PM ECG Data Attestation: I personally reviewed and interpreted this ECG as follows: Indication: + weakness Rate (beats per minute): 100 Rhythm: + normal sinus ECG ST segments: + ST depression (diffuse ST depression especially in lateral leads); no ST elevation ECG Findings: + Other (QTC 415) Comparison ECG Date: from (11/16/2017) Change: the following changes noted (ST depression now new) Blood Pressure Blood Pressure Findings: Low blood pressure Blood Pressure Disposition: further management by hospitalist [facility] Narrative There is a significant leukocytosis at 24,000, this is consistent with infection. No anemia. No worrisome coagulopathy. Renal panel testing shows a mildly low potassium, no kidney failure. Lactic acid level was not elevated making severe sepsis less likely. Procalcitonin was elevated at 7.39. EKG showed a sinus rhythm with some ST depression diffusely, no acute ischemic change. Cardiac enzyme testing x1 is not consistent with acute cardiac injury. Chest film shows a right upper lung pneumonia. Strep testing was negative. Blood cultures are pending. Urinalysis result is pending. The patient was aggressively managed. She did receive IV cefepime as antibiotic coverage. She was given IV Toradol, IV Zofran and IV saline. The patient presents febrile, hypotensive, tachycardic. She does have pneumonia by work-up. She has a very high white blood cell count. I do think she meets criteria for sepsis. Hospitalization is warranted. I spoke to the patient and her family, I did consult the on-call hospitalist. Patient is feeling improved since receiving treatment here in the ED. Impression & Plan Sepsis, Pneumonia, Dehydration, Hypotension, Leukocytosis Discharge Plan Visit Data Chief Complaint: Fever Stated Complaint: FEVER,FATIGUE ED Provider: David Jones Discharge Problem: Sepsis, Pneumonia, Dehydration, Hypotension, Leukocytosis Patient Disposition: Being Evaluated by Hospitalist Forms Stand Alone Forms: My [facility] Prescriptions Prescriptions: No Action Dulera 200-5 mcg/actuation HFA aerosol inhaler 2 puffs INH BID Qty: 13 RF: 11 topiramate 200 mg tablet 200 mg PO BID Qty: 60 RF: 5 tiotropium bromide 18 mcg capsule, w/inhalation device 1 cap inhalation DAILY Qty: 30 RF: 5 linaclotide 290 mcg capsule 290 mcg PO DAILY RF: 0 ibuprofen 200 mg capsule 200 mg PO Q6H PRN (Reason: Pain) RF: 0 albuterol sulfate [Ventolin HFA] 90 mcg/actuation HFA aerosol inhaler 2 puffs INH QID PRN (Reason: shortness of breath or wheezing) Qty: 8 RF: 0 Referrals Referrals: Andrew Rodriguez III, MD [Primary Care Provider] - Discharge Problem: Sepsis Qualifiers: Sepsis type: sepsis due to unspecified organism Sepsis acute organ dysfunction status: unspecified Qualified Code(s): A41.9 - Sepsis, unspecified organism Pneumonia Qualifiers: Pneumonia type: due to unspecified organism Laterality: right Lung location: upper lobe of lung Qualified Code(s): J18.9 - Pneumonia, unspecified organism Hypotension Qualifiers: Hypotension type: unspecified hypotension type Qualified Code(s): I95.9 - Hypotension, unspecified Leukocytosis Qualifiers: Leukocytosis type: unspecified Qualified Code(s): D72.829 - Elevated white blood cell count, unspecified The scribe's documentation has been prepared under my direction and personally reviewed by me in its entirety. I confirm that the note above accurately reflects all work, treatment, procedures, and medical decision making performed by me.
[2019-04-20 17:24] LABS: Hematocrit (blood only) 40.3 % (37-47); Hemoglobin 13.8 g/dL (12.0-16.0); Mean Corpuscular Hemoglobin 29.8 pg (25-34); Mean Corpuscular Hgb Conc 34.2 g/dL (32-36); Mean Platelet Volume 9.4 fL (7.4-10.4); Platelet Count 223 K/uL (130-400); RDW Coefficient of Variation 14.3 % (11.5-14.5); RDW Standard Deviation 45.8 fL (36.4-46.3); Red Blood Count 4.63 M/uL (4.2-5.4); White Blood Count 24.35 K/uL (4.8-10.8)
[2019-04-20 17:38] LABS: INR 1.2 (0.9-1.1); Partial Thromboplastin Ratio 1.1; Partial Thromboplastin Time 29.5 Seconds (21.0-31.0); Prothrombin Time 12.4 Seconds (9.0-12.0)
[2019-04-20 17:45] LABS: Alanine Aminotransferase 18 U/L (12-78); Albumin Level 3.7 gm/dl (3.4-5.0); Aspartate Aminotransferase 11 U/L (15-37); BUN Creatinine Ratio 15.8 (10-20); Blood Urea Nitrogen 17 mg/dl (7-18); Calcium 9.3 mg/dl (8.5-10.1); Carbon Dioxide 19 mmol/L (21-32); Chloride 108 mmol/L (98-107); Creatinine Clr Calc Pharmacy 47.1 ml/min; Est GFR (African American) 67.4; Est GFR (Non-African American) 58.2; Glucose 106 mg/dl (70-99); Magnesium 1.8 mg/dl (1.8-2.4); Potassium 3.2 mmol/L (3.5-5.1); Sodium 138 mmol/L (136-145)
[2019-04-20 17:49] LABS: Basophils # (auto) 0.02 K/uL (0-0.2); Basophils % (auto) 0.1 %; Immature Granulocytes # (auto) 0.12 K/uL (0.00-0.02); Immature Granulocytes % (auto) 0.5 %; Lymphocytes # (auto) 1.51 K/uL (1.2-3.4); Lymphocytes % (auto) 6.2 %; Monocytes # (auto) 1.75 K/uL (0.11-0.59); Monocytes % (auto) 7.2 %; Neutrophils # (auto) 20.95 K/uL (1.4-6.5)
[2019-04-20 17:50] LABS: Albumin Globulin Ratio 0.9 (0.9-2); Alkaline Phosphatase 67 U/L (45-117); Bilirubin,Total 0.9 mg/dl (0.2-1); Globulin 4.3 gm/dl (2.5-4.0); Troponin I < 0.015 ng/ml (0-0.045)
--- NOTE | 2019-04-20 17:54 | XRay Report ---
XR chest 1V portable CLINICAL HISTORY: 54 years-old Female presenting with Sepsis. TECHNIQUE: Portable upright AP view of the chest was obtained. COMPARISON: 02/07/[address] from 01/04/2019. FINDINGS: Cardiomediastinal silhouette normal. Architectural distortion of the right lung compatible with under lying right upper lobectomy. Calcified granuloma noted at the right lung base. Suture margin projects over the right apex. There is also new paramediastinal right upper lung opacity. This is new from pr ior. Left lung and pleural space clear. Osteopenia suspected. Upper abdomen normal. IMPRESSION: 1. Interval development of paramediastinal right upper lung opacity along a suture margin. This is s uspicious for recurrent disease or a focal infiltrate. CT chest is recommended for better characteriz ation. Electronically signed by: Jeff Thorne M.D. 04/20/2019 5:53 PM
[2019-04-20] MEDS ORDERED: SODIUM CHLORIDE 0.9% 1000ML 500 ML IV ONE (18:37)
--- NOTE | 2019-04-20 19:05 | History & Physical Report ---
Date of Service April 20, 2019 Assessment & Plan (1) Sepsis: Admit to [facility] on telemetry Vital signs every 4 hours Continue cefepime started in the emergency room Continue IV fluid hydration with normal saline and potassium at 100 cc/h Monitor electrolytes and replenish CBC CMP daily Duo nebs every 4 hours. Continue home inhalers: Albuterol sulfate 90 MCG's 2 puffs 4 times daily as needed, mometasone formoterol 200 MCG's5 MCG's 2 puffs twice daily, T ectropion bromide 18 MCG's capsule with inhalation 1 capsule daily. Pain management: Percocet 1 tablet every 4 as needed, Toradol 15 mg every 6 hours as needed for pain. Follow-up blood cultures Follow-up sputum cultures DVT prophylaxis Lovenox 40 mg subcu daily Full code Present on Admission?: Yes (2) Pneumonia: As above Present on Admission?: Yes (3) Dehydration: Copious IV fluid hydration as well as p.o. hydration as much as patient can tolerate. Monitor electrolytes. Started sodium with potassium for hypokalemia of 3.2. Replenish orally if patient can tolerate. Present on Admission?: Yes (4) Leukocytosis: As above, treat pneumonia and trend down leukocytes. Present on Admission?: Yes (5) Primary adenocarcinoma of upper lobe of right lung: Patient is considered to be in remission. Last CT scan on January 04, 2019 showed 15 mm solid irregular right upper lobe nodule with associated cystic spaces adjacent groundglass density. Patient follow-up follows up with and Dr. Yadav. We will repeat CT of the chest without contrast and contact either Dr. Yadav or for consultation if CT chest result worrisome. Present on Admission?: Yes (6) COPD (chronic obstructive pulmonary disease): Continue home inhalers: Albuterol sulfate 90 MCG's 2 puffs 4 times daily as needed, mometasone formoterol 200 MCG'sMCG 2 puffs twice daily, T ectropion bromide 18 MCG's 1 Inhalation daily, and duo nebs every 4 hours as needed for shortness of breath and cough. Present on Admission?: Yes (7) Constipation, acute: Continue home dose of linaclotide 290 MCG's capsule p.o. daily. Present on Admission?: Yes History of Present Illness Chief Complaint: Generalized weakness, cough and fever for 1 day Primary Care Provider: Andrew Rodriguez MD Patient is a 54 years old female with past medical history of COPD, adenocarcinoma of the lung in remission first time diagnosed in March 2013 and had a right upper lobectomy in 2013, who presents to the emergency department with a complaint of generalized weakness cough and fever started 3 days ago.Patient reports there is no sick contact. Patient said that she is in remission for 1 year since she had a right upper lobectomy [place] [address] Freeman thoracic surgeon. 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 Patient states that she did not check temperature at home but she felt feverish and had chills. Her appetite is decreased and she did not drink much fluids. Patient appears toxic. The patient states she has had a productive cough, congestion, fever, weakness and intermittent lower abdominal pain that radiates to her back. Patient denies chest pain headache, urinary frequency urgency syncope or near syncope hematuria melena or dysuria. She also denies tick bites. Labs are reviewed: WBC is 24.35, hemoglobin 13.8, hematocrit 40.3, platelets 22.3, PT 12.4, INR 1.2, APTT 29.5. Sodium 138, potassium 3.2, chloride 108, BUN 17, creatinine 1.08, GFR 58.2, lactate 1.4, calcium 9.3, magnesium 1.8, total bili 0.9, AST 11, ALT 18, troponin 0 0.015, procalcitonin 7.39. Chest x-ray show interval development of paramediastinal right upper lung capacity along with a suture margin. This is suspicion for recurrent disease or a focal infiltrate. CT chest is recommended for better characterization. CT of the chest was done in December 2018 and showed postsurgical changes of the right upper lobectomy. Improving right lower lobe nodularity, consistent with a resolving infectious inflammatory process. New 15 mm solid irregular right upper lobe nodule with associated cystic spaces adjacent to ground groundless density. On a statistical basis this is infectious/inflammatory. A 3 months follow-up CT scan is recommended. Decision was made to admit patient to [facility] on telemetry for sepsis, pneumonia and further management and treatment. Allergies Allergy/AdvReac Type Severity Reaction Status Date / Time guaifenesin Allergy Intermediate HIVES, Verified 04/20/19 17:12 TAKEN AT SAME TIME AUGMENTIN Iodinated Contrast Media Allergy Intermediate HIVES Verified 04/20/19 17:12 lubiprostone Allergy Intermediate HIVES Verified 04/20/19 17:12 oxcarbazepine Allergy Intermediate HIVES Verified 04/20/19 17:12 Penicillins Allergy Intermediate HIVES, Verified 04/20/19 17:12 TAKEN AT SAME TIME ENTEX phenylephrine Allergy Intermediate HIVES, Verified 04/20/19 17:12 TAKEN AT SAME TIME AUGMENTIN phenylpropanolamine Allergy Intermediate HIVES, Verified 04/20/19 17:12 TAKEN AT SAME TIME AUGMENTIN red dye Allergy Intermediate HIVES Verified 04/20/19 17:12 varenicline Allergy Intermediate HIVES Verified 04/20/19 17:12 sulfamethoxazole Allergy Mild GI UPSET Verified 04/20/19 17:12 trimethoprim Allergy Mild HIVES Verified 04/20/19 17:12 amoxicillin [From Augmentin] Allergy Verified 04/20/19 17:12 clavulanic acid Allergy Verified 04/20/19 17:12 [From Augmentin] Sulfa (Sulfonamide AdvReac Mild "SULFA Verified 04/20/19 17:12 Antibiotics) DRUGS": GI UPSET/HIVES Home Medications Home Medications Medication Instructions Recorded Confirmed Type albuterol sulfate 90 mcg/actuation 2 puffs INH QID PRN #8 gm 12/29/18 04/20/19 Rx aerosol inhaler mometasone-formoterol HFA 200 2 puffs INH BID #13 gm 01/09/19 04/20/19 Rx mcg-5 mcg/actuation aerosol inhaler ibuprofen 200 mg capsule 200 mg PO Q6H PRN 03/08/19 04/20/19 History topiramate 200 mg tablet 200 mg PO BID #60 tab 03/15/19 04/20/19 Rx tiotropium bromide 18 mcg capsule 1 cap INHALATION DAILY #30 puffs 03/24/19 04/20/19 Rx with inhalation device linaclotide 290 mcg capsule 290 mcg PO DAILY cap 04/04/19 04/20/19 History Past Med/Surg History Medical History Acute sinusitis COPD (chronic obstructive pulmonary disease) (Chronic) Granulomatous lung disease (Chronic) Lung cancer Lung mass Malnourished (05/11/13) Primary adenocarcinoma of upper lobe of right lung Surgical History History of breast biopsy History of bronchoscopy History of colonoscopy History of craniotomy History of inferior vena caval filter placement History of lobectomy of lung History of tonsillectomy and adenoidectomy History of tubal ligation Family History Father Lung cancer Tobacco use COPD (chronic obstructive pulmonary disease) Mother Nephrolithiasis Brother Nephrolithiasis Obstructive sleep apnea Inguinal hernia Grandmother Breast cancer Aunt Breast cancer Grandfather Colon cancer Social History Preferred Language: Omani Feels Safe at Home: Yes Smoking Status: Former smoker Cigarettes Per Day: 20 ; Review of Systems Review of Systems: All systems reviewed & are unremarkable except as noted in HPI & below Physical Exam Constitutional: WD/WN, vitals as above well developed and + cachectic Eyes: PERRL, conjunctivae normal, anicteric sclerae ENMT: external ear and nose normal, oropharynx normal Neck: trachea midline, no thyromegaly Respiratory: normal respiratory effort and + dullness to percussion (Right side) Auscultation: + crackles, + wheezes, + bronchovesicular breath sounds (Right side) and + egophony (Right upper lobe) Cardiovascular: RRR, no murmur, no edema Chest (Breasts): normal inspection/palpation of breasts Gastrointestinal (Abdomen): normal bowel sounds, soft, nontender, no hepatosplenomegaly Musculoskeletal: no cyanosis or clubbing, extremities motor strength 5/5 Skin: no rashes, warm and dry Neurologic: patellar DTR's 2+ bilat, sensation intact Psychiatric: A+Ox3, euthymic affect Lymphatic: no cervical or axillary lymphadenopathy Results & Data Vital Signs (Past 12 Hours) Vital Signs Temp Pulse Resp BP Pulse Ox 04/20/19 18:31 92 H 23 97 04/20/19 18:30 92 H 26 H 94/56 L 96 04/20/19 18:01 91 H 21 96 04/20/19 18:00 90 22 92/55 L 96 04/20/19 17:49 38.1 C H 04/20/19 17:31 93 H 22 96 04/20/19 17:30 93 H 20 99/60 L 96 04/20/19 17:28 95 H 20 96 04/20/19 17:27 95 H 18 100/61 96 04/20/19 17:03 100 H 27 H 04/20/19 16:38 37.6 C H 116 H 16 97/67 L 98 Code Status & VTE Plan Code Status Full code VTE Prophylaxis Plan VTE Prophylaxis will be ordered: Yes PG Care Time/CCT Total # of Minutes Spent Total Time Spent with Patient: Total time spent is greater than 50% in coordination of care (as documented) at patient's floor/unit and/or counseling patient: (1) Sepsis Sepsis acute organ dysfunction status: unspecified Sepsis type: sepsis due to unspecified organism Qualified Code(s): A41.9 - Sepsis, unspecified organism (2) Pneumonia Laterality: right Lung location: upper lobe of lung Pneumonia type: due to unspecified organism Qualified Code(s): J18.9 - Pneumonia, unspecified organism (3) Leukocytosis Leukocytosis type: unspecified Qualified Code(s): D72.829 - Elevated white blood cell count, unspecified
[2019-04-20] MEDS ORDERED: ZOLPIDEM TARTRATE 5 MG TAB PO PRN (19:39)
[2019-04-20] MEDS ORDERED: ALUMINUM/MAGNESIUM SUSP 30 ML UDC PO PRN (19:39)
[2019-04-20] MEDS ORDERED: MAGNESIUM HYDROXIDE SUSP 30 ML UDC PO PRN (19:39)
[2019-04-20] MEDS ORDERED: POLYETHYLENE (MIRALAX) 17 GM PACK PO PRN (19:39)
[2019-04-20] MEDS ORDERED: ALBUTEROL HFA 8 GM INHALER INH PRN (19:39)
[2019-04-20] MEDS ORDERED: ONDANSETRON INJ 2 MG/ML 2 ML VIAL IV PRN (19:39)
[2019-04-20] MEDS ORDERED: GUAIFENESIN/DEXTROM SYRUP 200MG/20MG 10ML UDC PO PRN (19:39)
[2019-04-20] MEDS ORDERED: KETOROLAC TROMETHAMINE 15 MG/ML VIAL IV PRN (19:39)
[2019-04-20] MEDS ORDERED: ALBUT/IPRATROP 3MG/0.5MG NEB 3 ML VIAL NEB PRN (19:39)
[2019-04-20] MEDS ORDERED: OXYCODONE/ACETAMINOPHEN 5mg/325mg TAB PO PRN (19:39)
[2019-04-20 19:56] LABS: NT Pro B Type Natriuretic Pept 877 pg/ml (0-900)
[2019-04-20 19:57] LABS: Influenza A virus by PCR Neg for Influ A (Neg); Influenza B virus by PCR Neg for Influ B (Neg)
[2019-04-20 20:28] LABS: Thyroid Stimulating Hormone 0.256 uIu/ml (0.300-4.500)
--- NOTE | 2019-04-20 20:44 | CT Scan Report ---
CT chest wo con CLINICAL HISTORY: 54 years-old Female presenting with 15 mm nodule seen on 01/04/2019, follow-up. TECHNIQUE: Multidetector CT imaging of the chest was performed without the use of intravenous contras t. IV contrast: None. One or more dose lowering techniques were used consistent with the principles o f ALARA (as low as reasonably achievable), including automatic exposure control, mA or kV adjustment to individual patient size, and/or use of iterative reconstruction. COMPARISON: 01/04/2019. CT DOSE (mGy.cm): The estimated cumulative dose is 186.52 mGy.cm. FINDINGS: Nut [employer] topogram: Unremarkable. Soft tissues: Normal thyroid and thoracic inlet. No axillary, supraclavicular, or mediastinal lymphad enopathy. Evaluation of the [place] limited without intravenous contrast. Atherosclerosis of the aorta. Normal heart size. No pericardial or pleural effusion. Upper abdomen normal. Lungs and airways: No pneumothorax. Central airways patent. Pulmonary arteries mildly enlarged relati ve to adjacent bronchi. No interlobular septal thickening. Postsurgical changes of right upper lobect marry. Moderate centrilobular upper lobe predominant emphysema. Patchy solid and groundglass consolidat ion in the superior segment of the right lower lobe. There is central cavitation though this may rela te to underlying emphysema. This is at the site of the prior cavitary nodule. Few additional nodular groundglass and solid opacities noted more inferiorly at the right lung base. Calcified granuloma in the right lung. There is no solid consolidation along the suture margins in the paramediastinal right upper lung. No infiltrate in the left lung apart from minimal atelectasis. Musculoskeletal: Degenerative changes of the spine. IMPRESSION: 1. Significant interval increase in size of the nodule in the right lower lobe, which now appears as extensive solid and groundglass consolidation. This is suspicious for an underlying neoplasm given t he interval evolution. The location subjacent to the scapula is not amenable to percutaneous biopsy. Infectious or inflammatory process could also have this appearance. Follow-up is required with pulmon jl consultation for possible bronchoscopic biopsy. 2. Additional minimal nodularity in the right lung base is nonspecific and could relate to an infect ious or inflammatory process. 3. No suspicious consolidation or nodularity along the suture margins in the right paramediastinal u pper lung. 4. Post surgical changes of right upper lobectomy. 5. Emphysema. The report will be called/faxed according to standard departmental protocol. Electronically signed by: Jeff Thorne M.D. 04/20/2019 8:42 PM
[2019-04-20] MEDS: TOPIRAMATE 100 MG TAB PO SCH (20:52)
[2019-04-20] MEDS: BUDESONIDE/FORMOTEROL FUMARATE 160/4.5 60 PUFFS/INHALER INH SCH (20:53)
[2019-04-20] MEDS: ENOXAPARIN INJ 40 MG/0.4 ML SYR SQ SCH (20:53)
[2019-04-20] MEDS: NSS + 20MEQ KCL 20 MEQ/1,000 ML BAG IV SCH (20:53)
[2019-04-21] MEDS: ACETAMINOPHEN 325 MG TAB PO PRN (02:53)
[2019-04-21] MEDS ORDERED: IBUPROFEN 600 MG TAB PO STA (04:14)
[2019-04-21] MEDS: CEFEPIME 2,000 MG in SYRINGE 7.5 ML IV SCH ×2 (05:08→16:30)
[2019-04-21] MEDS: LINACLOTIDE 72 MCG CAPSULE PO SCH (07:42)
[2019-04-21] MEDS: BUDESONIDE/FORMOTEROL FUMARATE 160/4.5 60 PUFFS/INHALER INH SCH ×2 (07:42→19:55)
[2019-04-21] MEDS: TOPIRAMATE 100 MG TAB PO SCH ×2 (07:42→19:55)
[2019-04-21] MEDS: TIOTROPIUM BROMIDE 5 PUFF/90 MCG INH INH SCH (07:43)
[2019-04-21] MEDS: NSS + 20MEQ KCL 20 MEQ/1,000 ML BAG IV SCH ×2 (07:43→16:27)
[2019-04-21 08:06] LABS: Hematocrit (blood only) 31.1 % (37-47); Hemoglobin 10.4 g/dL (12.0-16.0); Mean Corpuscular Hgb Conc 33.4 g/dL (32-36); Mean Corpuscular Volume 86.6 fL (80-100); Mean Platelet Volume 9.8 fL (7.4-10.4); Platelet Count 159 K/uL (130-400); RDW Coefficient of Variation 14.5 % (11.5-14.5); Red Blood Count 3.59 M/uL (4.2-5.4); White Blood Count 13.09 K/uL (4.8-10.8)
[2019-04-21 08:14] LABS: Estimated Average Glucose 114 mg/dl; Hemoglobin A1C 5.6 % (4.5-5.6)
[2019-04-21 08:30] LABS: Basophils # (auto) 0.03 K/uL (0-0.2); Basophils % (auto) 0.2 %; Echinocytes 1+; Immature Granulocytes # (auto) 0.07 K/uL (0.00-0.02); Immature Granulocytes % (auto) 0.5 %; Lymphocytes # (auto) 1.14 K/uL (1.2-3.4); Lymphocytes % (auto) 8.7 %; Monocytes % (auto) 6.9 %; Neutrophils # (auto) 10.95 K/uL (1.4-6.5); Neutrophils % (auto) 83.7 %
[2019-04-21 08:39] LABS: Albumin Globulin Ratio 0.9 (0.9-2); Albumin Level 2.7 gm/dl (3.4-5.0); BUN Creatinine Ratio 16.4 (10-20); Bilirubin,Total 0.7 mg/dl (0.2-1); Calcium 8.3 mg/dl (8.5-10.1); Creatinine Clr Calc Pharmacy 67.8 ml/min; Est GFR (African American) 104.7; Est GFR (Non-African American) 90.4; Globulin 3.1 gm/dl (2.5-4.0); Potassium 3.4 mmol/L (3.5-5.1); Total Protein 5.8 gm/dl (6.4-8.2)
--- NOTE | 2019-04-21 14:35 | Hospitalist Progress Note ---
Date of Service April 21, 2019 Assessment & Plan (1) Sepsis: due to right lower lobe pneumonia no fever, WBC improved to 13k, vitals stable, no hypoxia will continue on Cefepime as well as inhaled medications continue NSS with potassium at 100cc/hr, stop tomorrow morning reviewed CT chest results with h/o malignancy will complete treatment for pneumonia and follow up with pulmonary blood cultures with no growth continue tele for today (2) Pneumonia: As above (3) Dehydration: continue fluids at 100cc/hr, hydration status improving not drinking much still repeat BMP in the morning (4) Leukocytosis: due to right lower lobe PNA down to 13k (5) Primary adenocarcinoma of upper lobe of right lung: Patient is considered to be in remission. Last CT scan on January 04, 2019 showed 15 mm solid irregular right upper lobe nodule with associated cystic spaces adjacent groundglass density. CT on admission shows nodule is larger and density larger d/w pulmonary, will treat pneumonia and have her follow up closely with pulmonary clinic (6) COPD (chronic obstructive pulmonary disease): Continue home inhalers: Albuterol sulfate 90 MCG's 2 puffs 4 times daily as needed, mometasone formoterol 200 MCG'sMCG 2 puffs twice daily, T ectropion bromide 18 MCG's 1 Inhalation daily, and duo nebs every 4 hours as needed for shortness of breath and cough. no wheezing on exam, no distress (7) Constipation, acute: Continue home dose of linaclotide 290 MCG's capsule p.o. daily. no relief at this time (8) Hypokalemia: still a little low at 3.4, continue K in fluids Subjective patient feeling slightly better this morning but still very weak, no appetite cough is present, no mucous, does not feel short of breath at rest, slightly on exertion reviewed CT of the chest, enlarging node with consolidation, ground glass opacities given story of fever, malaise for three daily as well as leukocytosis, the changes seen favor acute infection discussed with Dr. Warren, he recommends treating infection, follow up with pulmonary in the clinic once pneumonia clears reviewed labs, WBC down to 13k from 24k, Hb is 10, K low at 3.4, Cr is stable as well as other electrolytes throat culture negative for strep, blood cultures pending patient has not had any fevers, feels like appetite getting better Review of Systems Review of Systems: All systems reviewed & are unremarkable except as noted in HPI & below Physical Exam Constitutional: WD/WN, vitals as above + thin Eyes: PERRL, conjunctivae normal, anicteric sclerae ENMT: external ear and nose normal, oropharynx normal Neck: trachea midline, no thyromegaly Respiratory: normal respiratory effort and + cough; no respiratory distress Auscultation: + crackles (right base); no rales, no rhonchi, no wheezes and no pleural rub Cardiovascular: RRR, no murmur, no edema Gastrointestinal (Abdomen): normal bowel sounds, soft, nontender, no hepatosplenomegaly Musculoskeletal: no cyanosis or clubbing, extremities motor strength 5/5 Skin: no rashes, warm and dry Neurologic: patellar DTR's 2+ bilat, sensation intact and PERRL, EOMI, accommodation nl, no face palsy, no dysarthria Psychiatric: A+Ox3, euthymic affect Lymphatic: no cervical or axillary lymphadenopathy Results & Data Vital Signs (Past 12 Hours) Vital Signs Temp Pulse Pulse Resp BP Pulse Ox 04/21/19 11:00 36.8 C 79 17 93/56 L 99 04/21/19 08:00 87 04/21/19 06:53 36.6 C 81 18 95/58 L 04/21/19 05:50 37.3 C 04/21/19 03:48 38 C H 04/21/19 02:37 38.6 C H 107 H 16 118/62 97 Laboratory Results Laboratory Results - last 24 hr 04/20/19 04/20/19 04/20/19 17:08 17:08 17:08 WBC 24.35 H RBC 4.63 Hgb 13.8 Hct 40.3 MCV 87.0 MCH 29.8 MCHC 34.2 RDW Std Deviation 45.8 RDW Coeff of Liyah 14.3 Plt Count 223 MPV 9.4 Immature Gran % (Auto) 0.5 Neut % (Auto) 86.0 Lymph % (Auto) 6.2 Stafford % (Auto) 7.2 Eos % (Auto) 0.0 Baso % (Auto) 0.1 Immature Gran # (Auto) 0.12 H Neut # (Auto) 20.95 H Lymph # (Auto) 1.51 Stafford # (Auto) 1.75 H Eos # (Auto) 0.00 Baso # (Auto) 0.02 Echinocytes PT 12.4 H INR 1.2 H APTT 29.5 PTT Ratio 1.1 Sodium Potassium Chloride Carbon Dioxide Anion Gap BUN Creatinine Est Cr Clr Drug Dosing Est GFR ( Amer) Est GFR (Non-Af Amer) BUN/Creatinine Ratio Glucose Estimat Average Glucose Hemoglobin A1c Lactate Calcium Magnesium Total Bilirubin AST ALT Alkaline Phosphatase Troponin I NT-Pro-B Natriuret Pep Total Protein Albumin Globulin Albumin/Globulin Ratio Triglycerides Cholesterol LDL Cholesterol, Calc VLDL Cholesterol, Calc HDL Cholesterol Cholesterol/HDL Ratio Procalcitonin 7.39 H TSH Influenza Type A (PCR) Influenza Type B (PCR) 04/20/19 04/20/19 04/20/19 17:08 17:08 19:15 WBC RBC Hgb Hct MCV MCH MCHC RDW Std Deviation RDW Coeff of Liyah Plt Count MPV Immature Gran % (Auto) Neut % (Auto) Lymph % (Auto) Stafford % (Auto) Eos % (Auto) Baso % (Auto) Immature Gran # (Auto) Neut # (Auto) Lymph # (Auto) Stafford # (Auto) Eos # (Auto) Baso # (Auto) Echinocytes PT INR APTT PTT Ratio Sodium 138 Potassium 3.2 L Chloride 108 H Carbon Dioxide 19 L Anion Gap 11.0 BUN 17 Creatinine 1.08 Est Cr Clr Drug Dosing 47.1 Est GFR ( Amer) 67.4 Est GFR (Non-Af Amer) 58.2 BUN/Creatinine Ratio 15.8 Glucose 106 H Estimat Average Glucose Hemoglobin A1c Lactate 1.4 Calcium 9.3 Magnesium 1.8 Total Bilirubin 0.9 AST 11 L ALT 18 Alkaline Phosphatase 67 Troponin I < 0.015 NT-Pro-B Natriuret Pep 877 Total Protein 8.0 Albumin 3.7 Globulin 4.3 H Albumin/Globulin Ratio 0.9 Triglycerides Cholesterol LDL Cholesterol, Calc VLDL Cholesterol, Calc HDL Cholesterol Cholesterol/HDL Ratio Procalcitonin TSH 0.256 L Influenza Type A (PCR) Neg for Influ A Influenza Type B (PCR) Neg for Influ B 04/21/19 04/21/19 04/21/19 07:48 07:48 07:48 WBC 13.09 H D RBC 3.59 L Hgb 10.4 L D Hct 31.1 L MCV 86.6 MCH 29.0 MCHC 33.4 RDW Std Deviation 46.0 RDW Coeff of Liyah 14.5 Plt Count 159 MPV 9.8 Immature Gran % (Auto) 0.5 Neut % (Auto) 83.7 Lymph % (Auto) 8.7 Stafford % (Auto) 6.9 Eos % (Auto) 0.0 Baso % (Auto) 0.2 Immature Gran # (Auto) 0.07 H Neut # (Auto) 10.95 H Lymph # (Auto) 1.14 L Stafford # (Auto) 0.90 H Eos # (Auto) 0.00 Baso # (Auto) 0.03 Echinocytes 1+ PT INR APTT PTT Ratio Sodium 142 Potassium 3.4 L Chloride 116 H Carbon Dioxide 18 L Anion Gap 8.0 BUN 12 Creatinine 0.75 D Est Cr Clr Drug Dosing 67.8 Est GFR ( Amer) 104.7 Est GFR (Non-Af Amer) 90.4 BUN/Creatinine Ratio 16.4 Glucose 91 Estimat Average Glucose 114 Hemoglobin A1c 5.6 Lactate Calcium 8.3 L Magnesium Total Bilirubin 0.7 AST 8 L ALT 11 L Alkaline Phosphatase 48 Troponin I NT-Pro-B Natriuret Pep Total Protein 5.8 L D Albumin 2.7 L Globulin 3.1 Albumin/Globulin Ratio 0.9 Triglycerides 80 Cholesterol 145 LDL Cholesterol, Calc 62 VLDL Cholesterol, Calc 16 HDL Cholesterol 67 Cholesterol/HDL Ratio 2 Procalcitonin TSH Influenza Type A (PCR) Influenza Type B (PCR) Medications Administered Current Inpatient Medications Acetaminophen (Tylenol) 650 mg PO Q4H PRN PRN Reason: Pain or Fever Stop: 05/20/19 19:38 Last Admin: 04/21/19 02:53 Dose: 650 mg Documented by: Al Hydrox/Mg Hydrox/Simethicone (Maalox) 15 ml PO Q4H PRN PRN Reason: Dyspepsia Stop: 05/20/19 19:38 Albuterol (Ventolin Hfa) 2 puffs INH QID PRN PRN Reason: shortness of breath or wheezing Stop: 05/20/19 19:38 Albuterol (Duoneb) 3 ml NEB Q4R PRN PRN Reason: shortness of breath Stop: 05/20/19 19:38 Budesonide/Formoterol Fumarate (Symbicort 160mcg/4.5mcg) 2 puffs INH BID YISEL; Protocol Stop: 05/20/19 20:59 Last Admin: 04/21/19 07:42 Dose: 2 puffs Documented by: Enoxaparin Sodium (Lovenox) 40 mg SQ Q24H YISEL Stop: 05/20/19 20:59 Last Admin: 04/20/19 20:53 Dose: 40 mg Documented by: Guaifenesin/Dextromethorphan (Robitussin Cough-Chest Dm) 10 ml PO Q6H PRN PRN Reason: Cough Stop: 05/20/19 19:38 Cefepime HCl 2,000 mg/ Syringe 20 mls @ 5.5 mls/min IV Q12H YISEL; Protocol Stop: 04/28/19 04:59 Last Admin: 04/21/19 05:08 Dose: 5.5 mls/min Documented by: Potassium Chloride/Sodium Chloride (Normal Saline W/20 Meq Kcl) 20 meq in 1,000 mls @ 100 mls/hr IV .Q10H YISEL Stop: 05/20/19 20:14 Last Admin: 04/21/19 07:43 Dose: 100 mls/hr Documented by: Ketorolac Tromethamine (Toradol) 15 mg IV Q6H PRN PRN Reason: Pain Stop: 04/25/19 19:38 Linaclotide (Linzess) 288 mcg PO DAILY YISEL; Protocol Stop: 05/21/19 08:59 Last Admin: 04/21/19 07:42 Dose: 288 mcg Documented by: Magnesium Hydroxide (Milk Of Magnesia) 30 ml PO Q12H PRN PRN Reason: Constipation Stop: 05/20/19 19:38 Ondansetron HCl (Zofran) 4 mg IV Q6H PRN PRN Reason: Nausea Stop: 05/20/19 19:38 Oxycodone/Acetaminophen (Percocet 5mg/325mg) 1 tab PO Q4H PRN PRN Reason: Pain Stop: 05/04/19 19:38 Polyethylene Glycol (Miralax Powder Packet) 17 gm PO DAILY PRN PRN Reason: Constipation Stop: 05/20/19 19:38 Tiotropium [place] (Spiriva) 1 puffs INH DAILY YISEL Stop: 05/21/19 08:59 Last Admin: 04/21/19 07:43 Dose: 1 puffs Documented by: Topiramate (Topamax) 200 mg PO BID YISEL Stop: 05/20/19 20:59 Last Admin: 04/21/19 07:42 Dose: 200 mg Documented by: Zolpidem Tartrate (Ambien) 2.5 mg PO HS PRN PRN Reason: Sleep Stop: 05/20/19 19:38 PG Care Time/CCT Total # of Minutes Spent Total Time Spent with Patient: Total time spent is greater than 50% in coordination of care (as documented) at patient's floor/unit and/or counseling patient: (1) Sepsis Sepsis acute organ dysfunction status: unspecified Sepsis type: sepsis due to unspecified organism Qualified Code(s): A41.9 - Sepsis, unspecified organism (2) Pneumonia Laterality: right Lung location: upper lobe of lung Pneumonia type: due to unspecified organism Qualified Code(s): J18.9 - Pneumonia, unspecified organism (3) Leukocytosis Leukocytosis type: unspecified Qualified Code(s): D72.829 - Elevated white blood cell count, unspecified
[2019-04-21] MEDS: ENOXAPARIN INJ 40 MG/0.4 ML SYR SQ SCH (19:56)
[2019-04-22] MEDS: NSS + 20MEQ KCL 20 MEQ/1,000 ML BAG IV SCH (02:14)
[2019-04-22] MEDS: ACETAMINOPHEN 325 MG TAB PO PRN (03:24)
[2019-04-22] MEDS: CEFEPIME 2,000 MG in SYRINGE 7.5 ML IV SCH ×2 (04:24→18:07)
[2019-04-22 06:17] LABS: Basophils # (auto) 0.02 K/uL (0-0.2); Basophils % (auto) 0.2 %; Eosinophils # (auto) 0.01 K/uL (0-0.5); Eosinophils % (auto) 0.1 %; Hematocrit (blood only) 29.2 % (37-47); Hemoglobin 9.9 g/dL (12.0-16.0); Immature Granulocytes # (auto) 0.02 K/uL (0.00-0.02); Immature Granulocytes % (auto) 0.2 %; Lymphocytes # (auto) 0.94 K/uL (1.2-3.4); Lymphocytes % (auto) 9.2 %; Mean Corpuscular Hemoglobin 29.2 pg (25-34); Mean Corpuscular Hgb Conc 33.9 g/dL (32-36); Mean Corpuscular Volume 86.1 fL (80-100); Monocytes # (auto) 0.87 K/uL (0.11-0.59); Monocytes % (auto) 8.5 %; Neutrophils # (auto) 8.35 K/uL (1.4-6.5); Neutrophils % (auto) 81.8 %; Platelet Count 153 K/uL (130-400); RDW Coefficient of Variation 14.3 % (11.5-14.5); RDW Standard Deviation 45.3 fL (36.4-46.3); Red Blood Count 3.39 M/uL (4.2-5.4); White Blood Count 10.21 K/uL (4.8-10.8)
[2019-04-22 07:02] LABS: Albumin Globulin Ratio 0.7 (0.9-2); Albumin Level 2.5 gm/dl (3.4-5.0); BUN Creatinine Ratio 11.9 (10-20); Bilirubin,Total 0.7 mg/dl (0.2-1); Calcium 8.2 mg/dl (8.5-10.1); Creatinine Clr Calc Pharmacy 89.2 ml/min; Est GFR (African American) 121.8; Est GFR (Non-African American) 105.1; Globulin 3.5 gm/dl (2.5-4.0); Potassium 3.5 mmol/L (3.5-5.1)
[2019-04-22] MEDS: LINACLOTIDE 72 MCG CAPSULE PO SCH (08:31)
[2019-04-22] MEDS: TIOTROPIUM BROMIDE 5 PUFF/90 MCG INH INH SCH (08:31)
[2019-04-22] MEDS: TOPIRAMATE 100 MG TAB PO SCH ×2 (08:31→20:33)
[2019-04-22] MEDS: BUDESONIDE/FORMOTEROL FUMARATE 160/4.5 60 PUFFS/INHALER INH SCH ×2 (08:32→20:33)
--- NOTE | 2019-04-22 09:28 | Hospitalist Progress Note ---
Date of Service April 22, 2019 Assessment & Plan (1) Sepsis: due to right lower lobe pneumonia no fever, WBC down to normal, vitals stable, no hypoxia will continue on Cefepime as well as inhaled medications stop NSS with potassium at 100cc/hr may be ready for d/c tomorrow, will change to Augmentin on discharge reviewed CT chest results with h/o malignancy will complete treatment for pneumonia and follow up with pulmonary blood cultures with no growth transfer to medical today (2) Pneumonia: As above (3) Dehydration: stop fluids, hydration status improved drinking more repeat BMP in the morning (4) Leukocytosis: due to right lower lobe PNA resolved this AM, WBC normal (5) Primary adenocarcinoma of upper lobe of right lung: Patient is considered to be in remission. Last CT scan on January 04, 2019 showed 15 mm solid irregular right upper lobe nodule with associated cystic spaces adjacent groundglass density. CT on admission shows nodule is larger and density larger d/w pulmonary, will treat pneumonia and have her follow up closely with pulmonary clinic (6) COPD (chronic obstructive pulmonary disease): Continue home inhalers: Albuterol sulfate 90 MCG's 2 puffs 4 times daily as needed, mometasone formoterol 200 MCG'sMCG 2 puffs twice daily, T ectropion bromide 18 MCG's 1 Inhalation daily, and duo nebs every 4 hours as needed for shortness of breath and cough. no wheezing on exam, no distress (7) Constipation, acute: Continue home dose of linaclotide 290 MCG's capsule p.o. daily. (8) Hypokalemia: resolved, stopped fluids Subjective patient feeling better today, no fevers ate a little for breakfast but she reports she does not normally eat a lot in the morning no dyspnea, minimal cough, no sputum production, no chest pain, no diaphoresis WBC is down to normal today, BMP is normal but there is slight metabolic acidosis, will stop fluids discussed importance of moving more, getting OOB in chair, ambulating she said she will make every effort to do this told her she can likely go home tomorrow which pleased her Review of Systems Review of Systems: All systems reviewed & are unremarkable except as noted in HPI & below Physical Exam Constitutional: WD/WN, vitals as above + thin Eyes: PERRL, conjunctivae normal, anicteric sclerae ENMT: external ear and nose normal, oropharynx normal Neck: trachea midline, no thyromegaly Respiratory: normal respiratory effort and + cough; no respiratory distress Auscultation: + diminished lung sounds (right base) and + crackles (right base); no rales, no rhonchi, no wheezes and no pleural rub Cardiovascular: RRR, no murmur, no edema Gastrointestinal (Abdomen): normal bowel sounds, soft, nontender, no hepatosplenomegaly Musculoskeletal: no cyanosis or clubbing, extremities motor strength 5/5 Skin: no rashes, warm and dry Neurologic: patellar DTR's 2+ bilat, sensation intact and PERRL, EOMI, accommodation nl, no face palsy, no dysarthria Psychiatric: A+Ox3, euthymic affect Lymphatic: no cervical or axillary lymphadenopathy Results & Data Vital Signs (Past 12 Hours) Vital Signs Temp Pulse Pulse Resp BP Pulse Ox 04/22/19 07:06 36.5 C 78 18 100/61 97 04/22/19 04:25 37.2 C 04/22/19 03:20 38 C H 97 H 16 111/72 93 04/22/19 00:00 81 04/21/19 23:05 37.1 C 106 H 20 109/70 94 Laboratory Results Laboratory Results - last 24 hr 04/22/19 04/22/19 05:47 05:47 WBC 10.21 RBC 3.39 L Hgb 9.9 L Hct 29.2 L MCV 86.1 MCH 29.2 MCHC 33.9 RDW Std Deviation 45.3 RDW Coeff of Liyah 14.3 Plt Count 153 MPV 10.0 Immature Gran % (Auto) 0.2 Neut % (Auto) 81.8 Lymph % (Auto) 9.2 [place] % (Auto) 8.5 Eos % (Auto) 0.1 Baso % (Auto) 0.2 Immature Gran # (Auto) 0.02 Neut # (Auto) 8.35 H Lymph # (Auto) 0.94 L [place] # (Auto) 0.87 H Eos # (Auto) 0.01 Baso # (Auto) 0.02 Sodium 141 Potassium 3.5 Chloride 116 H Carbon Dioxide 16 L Anion Gap 9.0 BUN 7 D Creatinine 0.57 L Est Cr Clr Drug Dosing 89.2 Est GFR ( Amer) 121.8 Est GFR (Non-Af Amer) 105.1 BUN/Creatinine Ratio 11.9 Glucose 97 Calcium 8.2 L Total Bilirubin 0.7 AST 12 L ALT 14 Alkaline Phosphatase 64 Total Protein 6.0 L Albumin 2.5 L Globulin 3.5 Albumin/Globulin Ratio 0.7 L Medications Administered Current Inpatient Medications Acetaminophen (Tylenol) 650 mg PO Q4H PRN PRN Reason: Pain or Fever Stop: 05/20/19 19:38 Last Admin: 04/22/19 03:24 Dose: 650 mg Documented by: Al Hydrox/Mg Hydrox/Simethicone (Maalox) 15 ml PO Q4H PRN PRN Reason: Dyspepsia Stop: 05/20/19 19:38 Albuterol (Ventolin Hfa) 2 puffs INH QID PRN PRN Reason: shortness of breath or wheezing Stop: 05/20/19 19:38 Albuterol (Duoneb) 3 ml NEB Q4R PRN PRN Reason: shortness of breath Stop: 05/20/19 19:38 Budesonide/Formoterol Fumarate (Symbicort 160mcg/4.5mcg) 2 puffs INH BID YISEL; Protocol Stop: 05/20/19 20:59 Last Admin: 04/22/19 08:32 Dose: 2 puffs Documented by: Enoxaparin Sodium (Lovenox) 40 mg SQ Q24H YISEL Stop: 05/20/19 20:59 Last Admin: 04/21/19 19:56 Dose: 40 mg Documented by: Guaifenesin/Dextromethorphan (Robitussin Cough-Chest Dm) 10 ml PO Q6H PRN PRN Reason: Cough Stop: 05/20/19 19:38 Cefepime HCl 2,000 mg/ Syringe 20 mls @ 5.5 mls/min IV Q12H YISEL; Protocol Stop: 04/28/19 04:59 Last Admin: 04/22/19 04:24 Dose: 5.5 mls/min Documented by: Ketorolac Tromethamine (Toradol) 15 mg IV Q6H PRN PRN Reason: Pain Stop: 04/25/19 19:38 Linaclotide (Linzess) 288 mcg PO DAILY YISEL; Protocol Stop: 05/21/19 08:59 Last Admin: 04/22/19 08:31 Dose: 288 mcg Documented by: Magnesium Hydroxide (Milk Of Magnesia) 30 ml PO Q12H PRN PRN Reason: Constipation Stop: 05/20/19 19:38 Ondansetron HCl (Zofran) 4 mg IV Q6H PRN PRN Reason: Nausea Stop: 05/20/19 19:38 Oxycodone/Acetaminophen (Percocet 5mg/325mg) 1 tab PO Q4H PRN PRN Reason: Pain Stop: 05/04/19 19:38 Polyethylene Glycol (Miralax Powder Packet) 17 gm PO DAILY PRN PRN Reason: Constipation Stop: 05/20/19 19:38 Tiotropium [place] (Spiriva) 1 puffs INH DAILY YISEL Stop: 05/21/19 08:59 Last Admin: 04/22/19 08:31 Dose: 1 puffs Documented by: Topiramate (Topamax) 200 mg PO BID YISEL Stop: 05/20/19 20:59 Last Admin: 04/22/19 08:31 Dose: 200 mg Documented by: Zolpidem Tartrate (Ambien) 2.5 mg PO HS PRN PRN Reason: Sleep Stop: 05/20/19 19:38 PG Care Time/CCT Total # of Minutes Spent Total Time Spent with Patient: Total time spent is greater than 50% in coordination of care (as documented) at patient's floor/unit and/or counseling patient: (1) Sepsis Sepsis acute organ dysfunction status: unspecified Sepsis type: sepsis due to unspecified organism Qualified Code(s): A41.9 - Sepsis, unspecified organism (2) Pneumonia Laterality: right Lung location: upper lobe of lung Pneumonia type: due to unspecified organism Qualified Code(s): J18.9 - Pneumonia, unspecified organism (3) Leukocytosis Leukocytosis type: unspecified Qualified Code(s): D72.829 - Elevated white blood cell count, unspecified
[2019-04-22] MEDS: ENOXAPARIN INJ 40 MG/0.4 ML SYR SQ SCH (20:33)
[2019-04-23] MEDS: CEFEPIME 2,000 MG in SYRINGE 7.5 ML IV SCH (05:19)
[2019-04-23 05:35] LABS: Basophils # (auto) 0.02 K/uL (0-0.2); Basophils % (auto) 0.2 %; Eosinophils # (auto) 0.06 K/uL (0-0.5); Eosinophils % (auto) 0.7 %; Hematocrit (blood only) 30.1 % (37-47); Hemoglobin 10.1 g/dL (12.0-16.0); Immature Granulocytes # (auto) 0.02 K/uL (0.00-0.02); Immature Granulocytes % (auto) 0.2 %; Lymphocytes # (auto) 1.06 K/uL (1.2-3.4); Lymphocytes % (auto) 12.6 %; Mean Corpuscular Hemoglobin 28.6 pg (25-34); Mean Corpuscular Hgb Conc 33.6 g/dL (32-36); Mean Corpuscular Volume 85.3 fL (80-100); Mean Platelet Volume 9.8 fL (7.4-10.4); Monocytes # (auto) 0.69 K/uL (0.11-0.59); Monocytes % (auto) 8.2 %; Neutrophils # (auto) 6.53 K/uL (1.4-6.5); Neutrophils % (auto) 78.1 %; Platelet Count 175 K/uL (130-400); RDW Coefficient of Variation 14.1 % (11.5-14.5); RDW Standard Deviation 43.6 fL (36.4-46.3); Red Blood Count 3.53 M/uL (4.2-5.4); White Blood Count 8.38 K/uL (4.8-10.8)
[2019-04-23 06:07] LABS: Albumin Level 2.5 gm/dl (3.4-5.0); BUN Creatinine Ratio 10.7 (10-20); Calcium 8.4 mg/dl (8.5-10.1); Est GFR (African American) 124.8; Est GFR (Non-African American) 107.6; Potassium 3.5 mmol/L (3.5-5.1)
[2019-04-23 06:10] LABS: Albumin Globulin Ratio 0.7 (0.9-2); Bilirubin,Total 0.6 mg/dl (0.2-1); Globulin 3.6 gm/dl (2.5-4.0); Total Protein 6.1 gm/dl (6.4-8.2)
[2019-04-23] MEDS: BUDESONIDE/FORMOTEROL FUMARATE 160/4.5 60 PUFFS/INHALER INH SCH (07:36)
[2019-04-23] MEDS: TIOTROPIUM BROMIDE 5 PUFF/90 MCG INH INH SCH (07:37)
[2019-04-23] MEDS: TOPIRAMATE 100 MG TAB PO SCH (07:38)
[2019-04-23] MEDS: LINACLOTIDE 72 MCG CAPSULE PO SCH (07:38)
--- NOTE | 2019-04-23 10:51 | Discharge Summary ---
Date of Service April 23, 2019 Admission HPI Per Admitting Provider Patient is a 54 years old female with past medical history of COPD, adenocarcinoma of the lung in remission first time diagnosed in March 2013 and had a right upper lobectomy in 2013, who presents to the emergency department with a complaint of generalized weakness cough and fever started 3 days ago.Patient reports there is no sick contact. Patient said that she is in remission for 1 year since she had a right upper lobectomy [place] [address] Freeman thoracic surgeon. Patient also follows up with Dr. correia supervisor central supply. Patient states that she did not check temperature at home but she felt feverish and had chills. Her appetite is decreased and she did not drink much fluids. Patient appears toxic. The patient states she has had a productive cough, congestion, fever, weakness and intermittent lower abdominal pain that radiates to her back. Patient denies chest pain headache, urinary frequency urgency syncope or near syncope hematuria melena or dysuria. She also denies tick bites. Labs are reviewed: WBC is 24.35, hemoglobin 13.8, hematocrit 40.3, platelets 22.3, PT 12.4, INR 1.2, APTT 29.5. Sodium 138, potassium 3.2, chloride 108, BUN 17, creatinine 1.08, GFR 58.2, lactate 1.4, calcium 9.3, magnesium 1.8, total bili 0.9, AST 11, ALT 18, troponin 0 0.015, procalcitonin 7.39. Chest x-ray show interval development of paramediastinal right upper lung capacity along with a suture margin. This is suspicion for recurrent disease or a focal infiltrate. CT chest is recommended for better characterization. CT of the chest was done in December 2018 and showed postsurgical changes of the right upper lobectomy. Improving right lower lobe nodularity, consistent with a resolving infectious inflammatory process. New 15 mm solid irregular right upper lobe nodule with associated cystic spaces adjacent to ground groundless density. On a statistical basis this is infectious/inflammatory. A 3 months follow-up CT scan is recommended. Decision was made to admit patient to [facility] on telemetry for sepsis, pneumonia and further management and treatment. Principal Diagnosis Sepsis due to right lower lobe pneumonia Discharge Exam Constitutional WD/WN, vitals as above + thin Eyes PERRL, conjunctivae normal, anicteric sclerae ENMT external ear and nose normal, oropharynx normal Neck trachea midline, no thyromegaly Respiratory normal respiratory effort and + cough; no respiratory distress Auscultation: + crackles (right base); no rales, no rhonchi, no wheezes and no pleural rub Cardiovascular RRR, no murmur, no edema Gastrointestinal (Abdomen) normal bowel sounds, soft, nontender, no hepatosplenomegaly Musculoskeletal no cyanosis or clubbing, extremities motor strength 5/5 Skin no rashes, warm and dry Neurologic patellar DTR's 2+ bilat, sensation intact and PERRL, EOMI, accommodation nl, no face palsy, no dysarthria Psychiatric A+Ox3, euthymic affect Lymphatic no cervical or axillary lymphadenopathy Discharge Data Allergies Allergy/AdvReac Type Severity Reaction Status Date / Time guaifenesin Allergy Intermediate HIVES, Verified 04/20/19 17:12 TAKEN AT SAME TIME AUGMENTIN Iodinated Contrast Media Allergy Intermediate HIVES Verified 04/20/19 17:12 lubiprostone Allergy Intermediate HIVES Verified 04/20/19 17:12 oxcarbazepine Allergy Intermediate HIVES Verified 04/20/19 17:12 Penicillins Allergy Intermediate HIVES, Verified 04/20/19 17:12 TAKEN AT SAME TIME ENTEX phenylephrine Allergy Intermediate HIVES, Verified 04/20/19 17:12 TAKEN AT SAME TIME AUGMENTIN phenylpropanolamine Allergy Intermediate HIVES, Verified 04/20/19 17:12 TAKEN AT SAME TIME AUGMENTIN red dye Allergy Intermediate HIVES Verified 04/20/19 17:12 varenicline Allergy Intermediate HIVES Verified 04/20/19 17:12 sulfamethoxazole Allergy Mild GI UPSET Verified 04/20/19 17:12 trimethoprim Allergy Mild HIVES Verified 04/20/19 17:12 amoxicillin [From Augmentin] Allergy Verified 04/20/19 17:12 clavulanic acid Allergy Verified 04/20/19 17:12 [From Augmentin] Sulfa (Sulfonamide AdvReac Mild "SULFA Verified 04/20/19 17:12 Antibiotics) DRUGS": GI UPSET/HIVES Consultations 04/20/19 18:26 ED Decision to Admit Stat Ordered Studies 04/20/19 19:39 CT chest wo con Stat Hospital Course (1) Sepsis: due to right lower lobe pneumonia no fever, WBC down to normal for two days, vitals stable, no hypoxia treated with Cefepime 2gm IV q12 while admitted received IV fluids for two days multiple allergies to abx limit what can be used on d/c will send home on Cefdinir 300mg BID and Doxycycline 100mg BID for 10 more doses each instructed to rest, stay well hydrated and well nourished reviewed CT chest with Dr. Mauricio and Dr. Warren both of them recommend getting PET scan as outpatient see below blood cultures with no growth (2) Pneumonia: As above d/c home on Cefdinir and Doxy afebrile, WBC normal, minimal cough, no hypoxia (3) Dehydration: stop fluids, hydration status improved drinking more BUN/Cr at baseline (4) Leukocytosis: due to right lower lobe PNA resolved for two days (5) Primary adenocarcinoma of upper lobe of right lung: Patient is considered to be in remission. Last CT scan on January 04, 2019 showed 15 mm solid irregular right upper lobe nodule with associated cystic spaces adjacent groundglass density. CT on admission shows nodule is larger and density larger d/w Dr. Mauricio and Dr. Warren plan is finish treatment with Cefdinir and Doxy get PET scan, will be arranged by Dr. Mauricio and he will follow up with patient in the office (6) COPD (chronic obstructive pulmonary disease): Continue home inhalers: Albuterol sulfate 90 MCG's 2 puffs 4 times daily as needed, mometasone formoterol 200 MCG'sMCG 2 puffs twice daily, T ectropion bromide 18 MCG's 1 Inhalation daily, and duo nebs every 4 hours as needed for shortness of breath and cough. no wheezing on exam, no distress (7) Constipation, acute: Continue home dose of linaclotide 290 MCG's capsule p.o. daily. (8) Hypokalemia: resolved, stopped fluids Total Time Total Time Spent Total Time Spent (In Minutes): 40 minutes Total Time Includes: Examination of the Patient, Discharge Planning, Medication Reconciliation and Communication With Other Providers (Dr. Mauricio and Dr. Warren) Discharge Plan Discharge Items Patient Disposition: Home - Self-Care Reason For Visit: SEPSIS,PNEUMONIA,FEVER Discharge Diagnosis: Right lower lobe pneumonia Condition on Discharge: Good Goals: complete course of antibiotics follow up with Dr. Maurciio after PET scan Activity: Resume your previous activity Non-emergency contact: Primary Care Provider and Surgeon Call non-emergency contact if: you have any medication questions, your symptoms worsen and you have a fever Follow-up/Referrals: Andrew Rodriguez III, MD [Primary Care Provider] - Diet: Regular Addtl Attending Provider Instructions: Medications: - CEFDINIR and DOXYCYCLINE: antibiotics for pneumonia, take twice a day each for 10 more doses, start this evening Right lower lobe pneumonia: presented with elevated WBC, low blood pressure, dyspnea much improved with IV fluids and Cefepime IV for three days WBC down to normal for two days in a row, no fever, vitals stable recommend that you continue to get rest, stay well nourished and well hydrated complete 10 more doses each of Cefdinir and Doxycycline Abnormal CT of the chest: right lower lobe, inflammatory/infectious changes however, with your history of lung cancer, Dr. Mauricio recommends getting a PET scan as outpatient his office will contact you regarding the PET scan and he will see you in the office afterwards FOLLOW UP - Dr. Rodriguez in one week, call his office tomorrow to arrange a hospital follow up visit - Dr. Mauricio after you complete PET scan, his office will be in contact with you Pending Studies at Discharge: No Stand-Alone Forms: [facility], Smoking Cessation Medications and DC Order Prescriptions: New cefdinir 300 mg capsule 300 mg PO BID 5 Days Qty: 10 RF: 0 doxycycline hyclate 100 mg capsule 100 mg PO BID 5 Days Qty: 10 RF: 0 Continued Dulera 200-5 mcg/actuation HFA aerosol inhaler 2 puffs INH BID Qty: 13 RF: 11 topiramate 200 mg tablet 200 mg PO BID Qty: 60 RF: 5 tiotropium bromide 18 mcg capsule, w/inhalation device 1 cap inhalation DAILY Qty: 30 RF: 5 linaclotide 290 mcg capsule 290 mcg PO DAILY RF: 0 ibuprofen 200 mg capsule 200 mg PO Q6H PRN (Reason: Pain) RF: 0 albuterol sulfate [Ventolin HFA] 90 mcg/actuation HFA aerosol inhaler 2 puffs INH QID PRN (Reason: shortness of breath or wheezing) Qty: 8 RF: 0 Discharge Orders: Discharge Order (Routine); Ordered 04/23/19 Ordered By: Kev Bernard Admission Data Admit Date/Time: 04/20/19 18:44 Attending Provider: Kev Bernard Admit Provider: Sonja Nielsen Primary Care Provider: Andrew Rodriguez III Other Providers: Sonja Nielsen
== END 2019-04-23 11:20 | disposition home or self-care (01) | DRG 871 ==
LOC: ED 16:36 → SUATTDRO 18:44 → 2S 18:44 → 3W 04-22 10:49

== ENCOUNTER 2023-06-29 14:51 | Observation (INO) ==
--- NOTE | 2023-06-29 16:03 | XRay Report ---
XR chest 1V not portable CLINICAL HISTORY: Sepsis. Cough. Shortness of breath. COMPARISON STUDY: Chest CT March 30, 2023. Chest radiograph April 14, 2023. FINDINGS: Postoperative findings within the right lung with volume loss are unchanged. Right apical o pacity is unchanged. This favors scarring/fibrotic change. No consolidation is present. There is unde rlying emphysema. No evidence for pulmonary edema. Cardiomediastinal silhouette is stable. IMPRESSION: 1. No acute cardiopulmonary findings. Stable postoperative findings within the right lung. 2. Emphysema. ACT 112: Negative or not required by law. Electronically signed by: Suresh Bear M.D. 06/29/2023 4:02 PM
[2023-06-29 16:04] LABS: Basophils # (auto) 0.02 K/uL (0.00-0.20); Basophils % (auto) 0.2 %; Hematocrit (blood only) 39.1 % (37.0-47.0); Hemoglobin 13.4 g/dl (12.0-16.0); Immature Granulocytes % (auto) 0.9 %; Lymphocytes # (auto) 0.78 K/uL (1.20-3.40); Lymphocytes % (auto) 6.8 %; Mean Corpuscular Hemoglobin 28.3 pg (25.0-34.0); Mean Corpuscular Hgb Conc 34.3 g/dL (32.0-36.0); Mean Corpuscular Volume 82.7 fL (80.0-100.0); Mean Platelet Volume 10.5 fL (9.4-12.4); Monocytes # (auto) 0.57 K/uL (0.11-0.59); Monocytes % (auto) 4.9 %; Neutrophils # (auto) 10.08 K/uL (1.40-6.50); Neutrophils % (auto) 87.2 %; Platelet Count 170 K/uL (130-400); RDW Coefficient of Variation 14.7 % (11.5-14.5); RDW Standard Deviation 45.1 fL (36.4-46.3); Red Blood Count 4.73 M/uL (4.20-5.40); White Blood Count 11.55 K/ul (4.8-10.8)
[2023-06-29 16:10] LABS: Albumin Globulin Ratio 1.1 (0.9-2); BUN Creatinine Ratio 21.9 (10-20); Bilirubin,Total 0.7 mg/dl (0.2-1.0); Calcium 9.3 mg/dl (8.6-10.3); Creatinine Clr Calc Pharmacy 58.6 ml/min; Est GFR (African American) 75.6 ml/min; Est GFR (Non-African American) 65.2 ml/min; Globulin 3.7 gm/dl (2.5-4.0); Potassium 3.5 mmol/L (3.5-5.1); Total Protein 7.7 gm/dl (6.0-8.3)
[2023-06-29 16:16] LABS: Troponin I High Sensitivity 11.8 pg/ml (0-14)
[2023-06-29] MEDS: SODIUM CHLORIDE 0.9% 2,000 ML IV ONE (16:18)
[2023-06-29] MEDS: ACETAMINOPHEN 1,000 MG/100 ML VIAL IV STA (16:18)
[2023-06-29 16:24] LABS: Partial Thromboplastin Time 29 Seconds (21-31); Prothrombin Time 10.7 Seconds (9.0-12.0)
[2023-06-29] MEDS ORDERED: VANCOMYCIN CONSULT ACTIVE PRN (16:29)
[2023-06-29 16:38] LABS: Adenovirus PCR Not Detected (NotDetected); Bordetella parapertussis PCR Not Detected (NotDetected); Bordetella pertussis PCR Not Detected (NotDetected); Chlamydia pneumoniae PCR Not Detected (NotDetected); Coronavirus 229E PCR Not Detected (NotDetected); Coronavirus CoV-2 (COVID19)PCR Not Detected (NotDetected); Coronavirus HKU1 PCR Not Detected (NotDetected); Coronavirus NL63 PCR Not Detected (NotDetected); Coronavirus OC43PCR Not Detected (NotDetected); Human Metapneumovirus PCR Not Detected (NotDetected); Influenza A PCR Not Detected (NotDetected); Influenza B PCR Not Detected (NotDetected); Mycoplasma pneumoniae PCR Not Detected (NotDetected); Parainfluenza Virus 1 PCR Not Detected (NotDetected); Parainfluenza Virus 2 PCR Not Detected (NotDetected); Parainfluenza Virus 3 PCR Not Detected (NotDetected); Parainfluenza Virus 4 PCR Not Detected (NotDetected); Respiratory Syncytial VirusPCR Not Detected (NotDetected); Rhinovirus/Enterovirus PCR Not Detected (NotDetected)
--- NOTE | 2023-06-29 16:43 | Electrocardiogram Report ---
Test Reason : Blood Pressure : / mmHG Vent. Rate : 120 BPM Atrial Rate : 120 BPM P-R Int : 098 ms QRS Dur : 052 ms QT Int : 268 ms P-R-T Axes : 023 041 056 degrees QTc Int : 378 ms Sinus tachycardia with short ND Low voltage QRS Poor R wave progression, consider anterior IA vs. lead placement vs. LVH Minor Nonspecific ST abnormality Anterolateral leads Abnormal ECG When compared with ECG of 20-APR-2019 16:55, ND interval has decreased ST depression less pronounced Confirmed by El Murillo ([id number]) on 06/29/2023 4:42:38 PM Referred By: Confirmed By:El Murillo
--- NOTE | 2023-06-29 16:44 | Emergency Department Note ---
Impression & Plan Sepsis, Leukocytosis ED Provider Note HISTORY OF PRESENT ILLNESS: Patient is a 58-year-old female presenting with generalized bodyaches and right upper quadrant abdominal pain. She also reports shortness of breath. States that symptoms been ongoing for the last 4 days. Denies any fevers at home. Denies any cough. Denies any nausea, vomiting or diarrhea. Denies any dysuria or hematuria. Locates pain in her right upper quadrant. Denies any history of abdominal surgeries. She has a history of lung cancer but is not currently on any chemotherapy or radiation therapy. Denies any recent sick contact exposures. Reports that she has been very fatigued over the last 4 days and has been sleeping constantly. States that "if you touch my body hurts so badly." ROS: as above PHYSICAL EXAM: Constitutional: Patient appears in no acute distress. HENT: Head: Normocephalic and atraumatic. Eyes: EOMI, PERRL Mouth/Throat: Mucous membranes moist. Neck: Trachea midline. Neck supple. Cardiovascular: Tachycardic with regular rhythm. No murmurs, rubs or gallops. Intact distal pulses. Pulmonary/Chest: No respiratory distress. Breath sounds clear and equal bilaterally. No wheezes or rales. Abdominal: Abdomen soft, no rebound or guarding. RUQ TTP Musculoskeletal: No edema, tenderness or deformity noted. Skin: Warm and dry. No rash, erythema, pallor or cyanosis Psychiatric: Appropriate mood and affect for situation. Neurological: Alert and keenly responsive. CN II-XII grossly intact, moving all extremities equally and fully. MDM: - Vitals signs showed hypertension, fever and tachycardia - History obtained via patient. Patient presents with generalized bodyaches and right upper quadrant abdominal pain. Patient reports that she has been having symptoms for the last 4 days and they have been getting progressively worse. Denies any cough. Reports feeling short of breath. Denies any dysuria or hematuria. Is complaining of right upper quadrant abdominal pain. Denies any history of abdominal surgeries. Denies any recent sick contact exposures. - Chronic conditions affecting care: lung cancer; COPD - Differential diagnoses include, but are not limited to: UTI; pneumonia; cholecystitis; viral syndrome; appendicitis; colitis - Order placed for continuous cardiac monitoring. At this time, monitor showed rate of 93 bpm with normal sinus rhythm, per my interpretation. - External medical records reviewed. Primary care visit note dated 04/14/2023 was reviewed. 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 - EKG interpreted by myself showed normal sinus rhythm. Rate tachycardic at 120 bpm. QT 268. No acute ischemic changes. - Laboratory workup interpreted by myself showed leukocytosis (WBC 11.55) with left shift; stable electrolytes; normal lactate; normal troponin; elevated procalcitonin (4.66) - Blood cultures obtained - Respiratory viral panel negative - CXR negative for pneumonia, per my interpretation - Unclear source for patient's sepsis at this time. However, urine has still not been collected by nursing staff - Patient given 2L N, IV rocephin and vancomycin for sepsis coverage. - CT abdomen/pelvis wo contrast (Due to patient's allergy) negative for acute pathology. - Discussion was had with child daycare worker about patient's case and need for admission - Hospitalist consulted for admission - Patient admitted to [facility] for further evaluation and management. ASSESSMENT AND PLAN: Diagnosis: sepsis; leukocytosis Plan: admit Past Med/Surg History Medical History CVA (cerebral vascular accident) (~03/2013) Pneumonia Sepsis Lung cancer Acute sinusitis Granulomatous lung disease COPD (chronic obstructive pulmonary disease) Anxiety Primary adenocarcinoma of upper lobe of right lung (~03/2013) Lung mass Acute intracerebral hemorrhage (04/19/13) Malnourished (05/11/13) Surgical History History of lobectomy of lung History of craniotomy (03/2013) History of inferior vena caval filter placement History of bronchoscopy History of colonoscopy History of tonsillectomy and adenoidectomy History of breast biopsy History of tubal ligation Family History Father Lung cancer Tobacco use COPD (chronic obstructive pulmonary disease) Mother Nephrolithiasis Brother Nephrolithiasis Obstructive sleep apnea Inguinal hernia Grandmother Breast cancer Aunt Breast cancer Grandfather Colon cancer Social History Smoking Status: Former smoker Age Started Using Tobacco: 11; Age Quit Using Tobacco: 49; packs per day: 1; Cigarettes Per Day: 20; Hx Alcohol Use: No Hx Substance Use: No Preferred Language: Icelandic Communication Ability: Effective Emissions Inspector Required: No Beliefs That Will Affect Care: None marital status: Current Living Situation: Family current occupational status: disabled Feels Safe at Home: Yes Assistive Devices: Walker Allergies Allergies Allergy/AdvReac Type Severity Reaction Status Date / Time Iodinated Contrast Media Allergy Intermediate HIVES Verified 04/14/23 09:19 lubiprostone Allergy Intermediate HIVES Verified 04/14/23 09:19 oxcarbazepine Allergy Intermediate HIVES Verified 04/14/23 09:19 Penicillins Allergy Intermediate HIVES, Verified 04/14/23 09:19 TAKEN AT SAME TIME ENTEX phenylephrine Allergy Intermediate HIVES, Verified 04/14/23 09:19 TAKEN AT SAME TIME AUGMENTIN phenylpropanolamine Allergy Intermediate HIVES, Verified 04/14/23 09:19 TAKEN AT SAME TIME AUGMENTIN red dye Allergy Intermediate HIVES Verified 04/14/23 09:19 varenicline Allergy Intermediate HIVES Verified 04/14/23 09:19 sulfamethoxazole Allergy Mild GI UPSET Verified 04/14/23 09:19 trimethoprim Allergy Mild HIVES Verified 04/14/23 09:19 amoxicillin [From Augmentin] Allergy Verified 04/14/23 09:19 clavulanic acid Allergy Verified 04/14/23 09:19 [From Augmentin] clindamycin Allergy allergy Verified 04/14/23 09:19 Sulfa (Sulfonamide AdvReac Mild "SULFA Verified 04/14/23 09:19 Antibiotics) DRUGS": GI UPSET/HIVES doxycycline AdvReac headache Verified 04/14/23 09:19 Home Meds Home Medications Medication Instructions Recorded Confirmed cetirizine 10 mg tablet (Zyrtec) 10 mg PO DAILY 07/19/19 06/29/23 fluticasone propionate 50 2 sprays intranasal DAILY 07/19/19 06/29/23 mcg/actuation nasal spray,suspension topiramate 50 mg tablet 50 mg PO BID 04/14/23 06/29/23 Previous Rx's Medication Instructions Recorded Flutter Valve #1 ea 08/26/20 fluticasone propionate 230 2 puff inhalation BID #12 grams 06/22/22 mcg-salmeterol 21 mcg/actuation HFA inhaler (Advair HFA) albuterol sulfate 90 mcg/actuation 2 puff inhalation QID PRN 01/11/23 aerosol inhaler (Ventolin HFA) shortness of breath or wheezing #3 Inhalers Spiriva with HandiHaler 18 mcg and 1 cap inhalation DAILY #1 inhaler 04/21/23 inhalation capsules (tiotropium bromide) linaclotide 290 mcg capsule 290 mcg PO DAILY #90 caps 04/21/23 Results & Data (ED) Vital Signs Vital Signs - 24 hr 06/29/23 14:53 06/29/23 17:59 06/29/23 18:01 Temperature 38.1 C H Temperature Source Temporal Artery Scan Pulse Rate 124 H Pulse Rate [Right Radial] 94 H Respiratory Rate 18 20 Respiratory Effort / Characteristics Non-Labored Spontaneous Respiratory Depth Normal Blood Pressure 97/59 L Blood Pressure [Right Arm] 100/59 L Blood Pressure Mean 71 Blood Pressure Mean [Right Arm] 72 Blood Pressure Position Sitting Pulse Oximetry 96 93 93 Oxygen Delivery Method Room Air Room Air Room Air Sepsis Recent Fever Within 48 Hours Yes Sepsis New/Unexplained Change in Mental Status No Sepsis Action Taken by Nursing Physician Notified 06/29/23 18:01 Temperature Temperature Source Pulse Rate 93 H Pulse Rate [Right Radial] Respiratory Rate 18 Respiratory Effort / Characteristics Respiratory Depth Blood Pressure Blood Pressure [Right Arm] Blood Pressure Mean Blood Pressure Mean [Right Arm] Blood Pressure Position Pulse Oximetry 93 Oxygen Delivery Method Room Air Sepsis Recent Fever Within 48 Hours Sepsis New/Unexplained Change in Mental Status Sepsis Action Taken by Nursing Laboratory Data 06/29/23 15:32 06/29/23 15:32 Lab Results 06/29/23 Range/Units 15:32 WBC 11.55 H (4.8-10.8) K/ul RBC 4.73 (4.20-5.40) M/uL Hgb 13.4 (12.0-16.0) g/dl Hct 39.1 (37.0-47.0) % MCV 82.7 (80.0-100.0) fL MCH 28.3 (25.0-34.0) pg MCHC 34.3 (32.0-36.0) g/dL RDW Std Deviation 45.1 (36.4-46.3) fL RDW Coeff of Liyah 14.7 H (11.5-14.5) % Plt Count 170 (130-400) K/uL MPV 10.5 (9.4-12.4) fL Immature Gran % (Auto) 0.9 % Neut % (Auto) 87.2 % Lymph % (Auto) 6.8 % [place] % (Auto) 4.9 % Eos % (Auto) 0.0 % Baso % (Auto) 0.2 % Neut # (Auto) 10.08 H (1.40-6.50) K/uL Lymph # (Auto) 0.78 L (1.20-3.40) K/uL [place] # (Auto) 0.57 (0.11-0.59) K/uL Eos # (Auto) 0.00 (0.00-0.50) K/uL Baso # (Auto) 0.02 (0.00-0.20) K/uL Immature Gran # (Auto) 0.10 (0.01-0.20) K/uL PT 10.7 (9.0-12.0) Seconds INR 1.0 (0.9-1.1) APTT 29 (21-31) Seconds PTT Ratio 1.0 Sodium 136 (136-145) mmol/L Potassium 3.5 (3.5-5.1) mmol/L Chloride 103 (98-107) mmol/L Carbon Dioxide 23 (21-32) mmol/L Anion Gap 10 (3-11) BUN 21 (6-23) mg/dl Creatinine 0.96 (0.6-1.2) mg/dl Est Cr Clr Drug Dosing 58.6 ml/min Est GFR ( Amer) 75.6 ml/min Est GFR (Non-Af Amer) 65.2 ml/min BUN/Creatinine Ratio 21.9 H (10-20) Glucose 113 H (70-99(Fasting)) mg/dl Lactate 1.3 (0.4-2.0) mmol/L Calcium 9.3 (8.6-10.3) mg/dl Magnesium 2.0 (1.7-2.4) mg/dl Total Bilirubin 0.7 (0.2-1.0) mg/dl AST 21 (13-39) U/L ALT 23 (7-52) U/L Alkaline Phosphatase 65 (34-104) U/L Troponin I High Sens 11.8 (0-14) pg/ml Total Protein 7.7 (6.0-8.3) gm/dl Albumin 4.0 (3.4-5.0) gm/dl Globulin 3.7 (2.5-4.0) gm/dl Albumin/Globulin Ratio 1.1 (0.9-2) Procalcitonin 4.66 H (0-0.5) ng/ml Adenovirus (PCR) Not Detected (NotDetected) B. pertussis DNA (PCR) Not Detected (NotDetected) B.parapertussis DNA PCR Not Detected (NotDetected) C. pneumoniae DNA (PCR) Not Detected (NotDetected) Coronavirus OC43 (PCR) Not Detected (NotDetected) Coronavirus HKU1 (PCR) Not Detected (NotDetected) Coronavirus 229E (PCR) Not Detected (NotDetected) SARS-CoV-2 (PCR) Not Detected (NotDetected) Coronavirus NL63 (PCR) Not Detected (NotDetected) Human Metapneumovir PCR Not Detected (NotDetected) Influenza Type A (PCR) Not Detected (NotDetected) Influenza Type B (PCR) Not Detected (NotDetected) M. pneumoniae (PCR) Not Detected (NotDetected) Parainfluenza 1 (PCR) Not Detected (NotDetected) Parainfluenza 2 (PCR) Not Detected (NotDetected) Parainfluenza 3 (PCR) Not Detected (NotDetected) Parainfluenza 4 (PCR) Not Detected (NotDetected) RSV (PCR) Not Detected (NotDetected) Entero/Rhino (PCR) Not Detected (NotDetected) Administered Medications Discontinued Medications Sodium Chloride (Nss) 2,000 mls @ 999 mls/hr IV .Q2H1M ONE Stop: 06/29/23 18:05 Last Admin: 06/29/23 16:18 Dose: 999 mls/hr Documented By: ESPERANZA Acetaminophen (Ofirmev) 1,000 mg in 100 mls @ 400 mls/hr IV NOW STA Stop: 06/29/23 16:19 Last Infusion: 06/29/23 18:24 Dose: Infused Documented By: Admin: 06/29/23 16:18 Dose: 400 mls/hr Documented By: ESPERANZA Ceftriaxone Sodium (Rocephin) 1,000 mg in 50 mls @ 100 mls/hr IV NOW STA Stop: 06/29/23 16:50 Last Admin: 06/29/23 18:24 Dose: 100 mls/hr Documented By: CEK Imaging Data Radiologist's Impression: Chest X-Ray 06/29/23 14:56 XR chest 1V not portable CLINICAL HISTORY: Sepsis. Cough. Shortness of breath. COMPARISON STUDY: Chest CT March 30, 2023. Chest radiograph April 14, 2023. FINDINGS: Postoperative findings within the right lung with volume loss are unchanged. Right apical opacity is unchanged. This favors scarring/fibrotic change. No consolidation is present. There is underlying emphysema. No evidence for pulmonary edema. Cardiomediastinal silhouette is stable. IMPRESSION: 1. No acute cardiopulmonary findings. Stable postoperative findings within the right lung. 2. Emphysema. ACT 112: Negative or not required by law. Electronically signed by: Suresh Bear M.D. 06/29/2023 4:02 PM Abdomen/Pelvis CT 06/29/23 17:[address] WITHOUT CONTRAST CT DOSE: 1170.44 mGy.cm HISTORY: RUQ abdominal pain TECHNIQUE: Multiaxial CT images of the abdomen and pelvis were performed without contrast. A dose lowering technique was utilized adhering to the principles of ALARA. COMPARISON STUDY: Abdomen and pelvis CT 05/06/2013. PET CT 04/01/2022. FINDINGS: Emphysema noted at the lung bases. There are postoperative changes at the right lung base. There is a trace right pleural effusion. No pneumoperitoneum. No pneumatosis. No acute fractures identified. There are few scattered subcentimeter hypodense lesions within the liver. These are incompletely characterized on this noncontrast study but favor cysts. The unenhanced gallbladder, pancreas, spleen, and adrenal glands unremarkable. No renal or ureteral stones. No hydronephrosis. Moderate calcified plaque within the normal caliber abdominal aorta. An IVC filter is noted. No retroperitoneal or pelvic lymphadenopathy. No pelvic free fluid. The bladder, uterus, bilateral adnexa are within normal limits. The uterus is retroflexed. Suboptimal evaluation for bowel pathology due to the lack of intravenous and oral contrast. However, there is no definite bowel wall thickening or obstruction. A few colonic diverticula. No evidence for acute diverticulitis. Normal appendix. IMPRESSION: 1. No definite bowel wall thickening or obstruction. 2. Normal appendix. 3. No hydronephrosis. 4. Postoperative changes again noted within the right lung base with a trace right pleural effusion. 5. Emphysema. ACT 112: Negative or not required by law. Electronically signed by: Nicko Schulte M.D. 06/29/2023 6:12 PM Discharge Plan Visit Data Chief Complaint: Illness Stated Complaint: DOES NOT FEEL RIGHT WHOLE BODY ACHES ED Provider: Rocío Chapa Discharge Problem: Sepsis, Leukocytosis Forms Stand Alone Forms: My [facility] Advizzer Prescriptions Prescriptions: No Action albuterol sulfate [Ventolin HFA] 90 mcg/actuation HFA aerosol inhaler 2 puff INH QID PRN (Reason: shortness of breath or wheezing) Qty: 3 3RF Spiriva with HandiHaler 18 mcg capsule, w/inhalation device 1 cap inhalation DAILY Qty: 1 5RF linaclotide 290 mcg capsule 290 mcg PO DAILY Qty: 90 1RF topiramate 50 mg tablet 50 mg PO BID (DME) Flutter Valve Device See Rx Instructions .MEDSUPPLY Qty: 1 0RF Rx Instructions: Use it every 6 hours when awake. cetirizine [Zyrtec] 10 mg tablet 10 mg PO DAILY fluticasone propionate 50 mcg/actuation spray,suspension 2 sprays INTNAS DAILY Advair HFA 230-21 mcg/actuation HFA aerosol inhaler 2 puff inhalation BID Qty: 12 12RF Referrals Referrals: Carissa Wu MD [Primary Care Provider] -
--- NOTE | 2023-06-29 18:13 | CT Scan Report ---
ABDOMEN AND PELVIS CT WITHOUT CONTRAST CT DOSE: 1170.44 mGy.cm HISTORY: RUQ abdominal pain TECHNIQUE: Multiaxial CT images of the abdomen and pelvis were performed without contrast. A dose lo wering technique was utilized adhering to the principles of ALARA. COMPARISON STUDY: Abdomen and pelvis CT 05/06/2013. PET CT 04/01/2022. FINDINGS: Emphysema noted at the lung bases. There are postoperative changes at the right lung base. There is a trace right pleural effusion. No pneumoperitoneum. No pneumatosis. No acute fractures iden tified. There are few scattered subcentimeter hypodense lesions within the liver. These are incomplet sherry characterized on this noncontrast study but favor cysts. The unenhanced gallbladder, pancreas, sp yvan, and adrenal glands unremarkable. No renal or ureteral stones. No hydronephrosis. Moderate calci fied plaque within the normal caliber abdominal aorta. An IVC filter is noted. No retroperitoneal or pelvic lymphadenopathy. No pelvic free fluid. The bladder, uterus, bilateral adnexa are within normal limits. The uterus is retroflexed. Suboptimal evaluation for bowel pathology due to the lack of intr avenous and oral contrast. However, there is no definite bowel wall thickening or obstruction. A few colonic diverticula. No evidence for acute diverticulitis. Normal appendix. IMPRESSION: 1. No definite bowel wall thickening or obstruction. 2. Normal appendix. 3. No hydronephrosis. 4. Postoperative changes again noted within the right lung base with a trace right pleural effusion. 5. Emphysema. ACT 112: Negative or not required by law. Electronically signed by: Nicko Schulte M.D. 06/29/2023 6:12 PM
[2023-06-29] MEDS: cefTRIAXone SODIUM 1,000 MG/50 ML BAG IV STA (18:24)
[2023-06-29 18:38] LABS: Appearance Urine Turbid (Clear); Blood Urine 3+ (Negative); Color Urine Dark Yellow; Epithelial Cell Urine Auto >30 /lpf (0-5); Glucose Urine UA Negative (Negative); Ketones Urine Trace (Negative); Leukocyte Esterase Urine Negative (Negative); Nitrite Urine Negative (Negative); Protein Urine 2+ (Negative); RBC Urine Automated 0-4 /hpf (0-4); Specific Gravity Urine 1.022 (1.000-1.030); Urobilinogen Urine Negative (Negative); pH Urine 5.5 (4.5-7.5)
[2023-06-29 18:44] LABS: Bilirubin Urine 1+ (Negative)
--- NOTE | 2023-06-29 19:01 | History & Physical Report ---
Date of Service June 29, 2023 Assessment & Plan (1) Sepsis: Plan: -Admit to med/tele -Currently hemodynamically stable, with HR WNL, and stable on RA -Presented to the ED with 4 days of fatigue and generalized body aches -Found to be febrile, tachycardic, leukocytosis of 11 -Lactate WNL -At this time her only source appears to be her UA which appears infected -Blood and urine cultures were obtained, tailor abx to results -Given a dose of ceftriaxone and vancmycin in ED, will continue with Ceftriaxone alone for now -S/P 2L NSS in the ED, completes her sepsis fluid bolus of 1500 mL -Will start maintenance Plasmalyte overnight as she appears dehydrated with recent poor oral intake -BL DOUG's for DVT PPX -HH diet -AM CBC, BMP, mag (2) UTI (urinary tract infection): Plan: -UA today appears to be her source of infection -Continue Ceftriaxone for now as she does not have a previous hx of resistant organisms per records from our system -Follow blood/urine cultures (3) COPD (chronic obstructive pulmonary disease): Plan: -Stable on RA -Continue home breathing treatments -Incentive spirometry (4) H/O: stroke with residual effects: Plan: -Baseline right sided weakness from previous non-traumatic subdural hematoma -Has IVC filter in place due to this hx -Fall precautions -PT/OT consults Plan The patient was discussed with Dr. Duque at the time of the admission History of Present Illness Chief Complaint: Generalized weakness, generalized body aches Primary Care Provider: Carissa Wu MD Mary is a 58 year old female with a PMH significant for severe COPD, Adenocarcinoma of the lung status post right upper lobectomy 07/19/2013, CVA with right upper extremity residual deficit, previous subdural hematoma with residual right sided weakness, previous IVC filter placement who presented to the [facility] ED on 06/29/23 with complaints of feeling generally fatigued and unwell. She was noted to be febrile on arrival at 38.1C with a BP of 97/59, HR of 124, but stable on RA. Labs were significant for a leukocytosis of 11.5 with neutrophil predominance of 10, lactate WNL, procal of 4.66, full respiratory biofire negative, and UA with turbid urine, 5-10 WBC, and 3+ bacteria. Chest xray was negative for acute findings. CT of the abd/pelvis wo con (No con due to contrast allergy hx) was read as "1. No definite bowel wall thickening or obstruction. 2. Normal appendix. 3. No hydronephrosis. 4. Postoperative changes again noted with in the right lung base with a trace right pleural effusion. 5. Emphysema.". Prior to admission blood/urine cultures were collected. The patient was given 2L NSS, 1gm IV tylenol, and a dose of Ceftriaxone and Vancomycin prior to admission. At the time of the exam the patient was sitting in bed in no acute distress. She states that she had been in her normal state of health when she developed generalized body aches, fatigue, and her typical migraine symptoms. Her migraine symptoms subsequently resolved but her other symptoms continued. She has had poor oral intake over the past 4 days. She did not take her temperature at home. She denies recent neck pain/stiffness, back pain, chest pain, increased SOB compared to baseline, new cough, abd pain, nausea, vomiting, dysuria hematuria, increased urinary frequency, skin ulcers/wounds, LE swelling, and recent trauma. She is a full code and would want her to make medical for her if she cannot make them herself. Please refer to Dr. Duque's attestation for any changes to the treatment plan Allergies Allergy/AdvReac Type Severity Reaction Status Date / Time Iodinated Contrast Media Allergy Intermediate HIVES Verified 04/14/23 09:19 lubiprostone Allergy Intermediate HIVES Verified 04/14/23 09:19 oxcarbazepine Allergy Intermediate HIVES Verified 04/14/23 09:19 Penicillins Allergy Intermediate HIVES, Verified 04/14/23 09:19 TAKEN AT SAME TIME ENTEX phenylephrine Allergy Intermediate HIVES, Verified 04/14/23 09:19 TAKEN AT SAME TIME AUGMENTIN phenylpropanolamine Allergy Intermediate HIVES, Verified 04/14/23 09:19 TAKEN AT SAME TIME AUGMENTIN red dye Allergy Intermediate HIVES Verified 04/14/23 09:19 varenicline Allergy Intermediate HIVES Verified 04/14/23 09:19 sulfamethoxazole Allergy Mild GI UPSET Verified 04/14/23 09:19 trimethoprim Allergy Mild HIVES Verified 04/14/23 09:19 amoxicillin [From Augmentin] Allergy Verified 04/14/23 09:19 clavulanic acid Allergy Verified 04/14/23 09:19 [From Augmentin] clindamycin Allergy allergy Verified 04/14/23 09:19 Sulfa (Sulfonamide AdvReac Mild "SULFA Verified 04/14/23 09:19 Antibiotics) DRUGS": GI UPSET/HIVES doxycycline AdvReac headache Verified 04/14/23 09:19 Home Medications Medication Instructions Recorded Confirmed Type cetirizine 10 mg tablet (Zyrtec) 10 mg PO DAILY 07/19/19 06/29/23 History fluticasone propionate 50 2 sprays intranasal DAILY 07/19/19 06/29/23 History mcg/actuation nasal spray,suspension Flutter Valve #1 ea 08/26/20 06/29/23 Rx fluticasone propionate 230 2 puff inhalation BID #12 grams 06/22/22 06/29/23 Rx mcg-salmeterol 21 mcg/actuation HFA inhaler (Advair HFA) albuterol sulfate 90 mcg/actuation 2 puff inhalation QID PRN 01/11/23 06/29/23 Rx aerosol inhaler (Ventolin HFA) shortness of breath or wheezing #3 Inhalers topiramate 50 mg tablet 50 mg PO BID 04/14/23 06/29/23 History Spiriva with HandiHaler 18 mcg and 1 cap inhalation DAILY #1 inhaler 04/21/23 06/29/23 Rx inhalation capsules (tiotropium bromide) linaclotide 290 mcg capsule 290 mcg PO DAILY #90 caps 04/21/23 06/29/23 Rx Past Med/Surg History Medical History CVA (cerebral vascular accident) (~03/2013) Pneumonia Sepsis Lung cancer Acute sinusitis Granulomatous lung disease COPD (chronic obstructive pulmonary disease) Anxiety Primary adenocarcinoma of upper lobe of right lung (~03/2013) Lung mass Acute intracerebral hemorrhage (04/19/13) Malnourished (05/11/13) Surgical History History of lobectomy of lung History of craniotomy (03/2013) History of inferior vena caval filter placement History of bronchoscopy History of colonoscopy History of tonsillectomy and adenoidectomy History of breast biopsy History of tubal ligation Family History Father Lung cancer Tobacco use COPD (chronic obstructive pulmonary disease) Mother Nephrolithiasis Brother Nephrolithiasis Obstructive sleep apnea Inguinal hernia Grandmother Breast cancer Aunt Breast cancer Grandfather Colon cancer Social History Smoking Status: Never smoker Age Started Using Tobacco: 11; Age Quit Using Tobacco: 49; packs per day: 1; Cigarettes Per Day: 20; Hx Alcohol Use: No Hx Substance Use: No Preferred Language: Romanian Communication Ability: Effective Faculty Member Required: No Beliefs That Will Affect Care: None marital status: Current Living Situation: Spouse current occupational status: disabled Feels Safe at Home: Yes Assistive Devices: Glasses and Walker Physical Exam Physical Exam: Physical Exam: General: In no acute distress, stated age, well-nourished, non-toxic appearing HEENT: Normocephalic, atraumatic, no scleral icterus, pupils around round, symmetrical, and reactive to light, moist mucus membranes, trachea midline, no thyromegaly Chest/Pulm: No respiratory distress, symmetrical chest expansion, decreased breath sounds in the right lower and upper lung brand with clear breath sounds in the left lung Cardiac: RRR, no murmurs noted Abdomen: Negative for ascites and bruising, normoactive bowel sounds, soft, non-tender to palpation throughout Musculoskeletal: No tenderness to palpation or signs of infection with palpation of the neck, thoracic/lumbar spine, baseline right upper/lower extremity noted, no acute trauma or infection noted on exam of the [facility] Extremities: Radial, dorsalis pedis, and posterior tibial pulses are intact and symmetrical, no edema noted in the [facility] Skin: Warm, dry, no rashes , lesions, or scars noted Neuro: Alert and oriented to person, place, month, year, and president, baseline right sided weakness noted , CN II-XII tested and intact, no tremors noted Psych: No acute distress, calm and cooperative during the exam Results & Data Results & Data Vital Signs (Past 12 Hours) Vital Signs Temp Pulse Pulse Resp BP BP Pulse Ox 06/29/23 18:01 93 H 18 93 06/29/23 18:01 93 06/29/23 17:59 94 H 20 100/59 L 93 06/29/23 14:53 38.1 C H 124 H 18 97/59 L 96 O2 Del Method 06/29/23 18:01 Room Air 06/29/23 18:01 Room Air 06/29/23 17:59 Room Air 06/29/23 14:53 Room Air Laboratory Results Abnormal lab results 06/29/23 06/29/23 Range/Units 15:32 18:26 WBC 11.55 H (4.8-10.8) K/ul RDW Coeff of Liyah 14.7 H (11.5-14.5) % Neut # (Auto) 10.08 H (1.40-6.50) K/uL Lymph # (Auto) 0.78 L (1.20-3.40) K/uL BUN/Creatinine Ratio 21.9 H (10-20) Glucose 113 H (70-99(Fasting)) mg/dl Procalcitonin 4.66 H (0-0.5) ng/ml Urine Appearance Turbid A (Clear) Urine Protein 2+ H (Negative) Urine Ketones Trace H (Negative) Urine Blood 3+ H (Negative) Urine Bilirubin 1+ H (Negative) Urine WBC (Auto) 5-10 H (0-5) /hpf U Epithel Cells (Auto) >30 H (0-5) /lpf Urine Bacteria (Auto) 3+ H (Negative) Granular Casts 5-10 H (0) /lpf Urine Mucus Present A (None Prsent) Diagnostic Findings Chest X-Ray 06/29/23 14:56 XR chest 1V not portable CLINICAL HISTORY: Sepsis. Cough. Shortness of breath. COMPARISON STUDY: Chest CT March 30, 2023. Chest radiograph April 14, 2023. FINDINGS: Postoperative findings within the right lung with volume loss are unchanged. Right apical opacity is unchanged. This favors scarring/fibrotic change. No consolidation is present. There is underlying emphysema. No evidence for pulmonary edema. Cardiomediastinal silhouette is stable. IMPRESSION: 1. No acute cardiopulmonary findings. Stable postoperative findings within the right lung. 2. Emphysema. ACT 112: Negative or not required by law. Electronically signed by: Suresh Bear M.D. 06/29/2023 4:02 PM Abdomen/Pelvis CT 06/29/23 17:[address] WITHOUT CONTRAST CT DOSE: 1170.44 mGy.cm HISTORY: RUQ abdominal pain TECHNIQUE: Multiaxial CT images of the abdomen and pelvis were performed without contrast. A dose lowering technique was utilized adhering to the principles of ALARA. COMPARISON STUDY: Abdomen and pelvis CT 05/06/2013. PET CT 04/01/2022. FINDINGS: Emphysema noted at the lung bases. There are postoperative changes at the right lung base. There is a trace right pleural effusion. No pneumoperitoneum. No pneumatosis. No acute fractures identified. There are few scattered subcentimeter hypodense lesions within the liver. These are incompletely characterized on this noncontrast study but favor cysts. The unenhanced gallbladder, pancreas, spleen, and adrenal glands unremarkable. No renal or ureteral stones. No hydronephrosis. Moderate calcified plaque within the normal caliber abdominal aorta. An IVC filter is noted. No retroperitoneal or pelvic lymphadenopathy. No pelvic free fluid. The bladder, uterus, bilateral adnexa are within normal limits. The uterus is retroflexed. Suboptimal evaluation for bowel pathology due to the lack of intravenous and oral contrast. However, there is no definite bowel wall thickening or obstruction. A few colonic diverticula. No evidence for acute diverticulitis. Normal appendix. IMPRESSION: 1. No definite bowel wall thickening or obstruction. 2. Normal appendix. 3. No hydronephrosis. 4. Postoperative changes again noted within the right lung base with a trace right pleural effusion. 5. Emphysema. ACT 112: Negative or not required by law. Electronically signed by: Nicko Schulte M.D. 06/29/2023 6:12 PM ECG Additional Comments: Sinus tachycardia with short MT Low voltage QRS Poor R wave progression, consider anterior ND vs. lead placement vs. LVH Minor Nonspecific ST abnormality Anterolateral leads Abnormal ECG When compared with ECG of 20-APR-2019 16:55, MT interval has decreased ST depression less pronounced Code Status & VTE Plan Code Status Full code VTE Prophylaxis Plan VTE Prophylaxis will be ordered: Yes Supervising Physician Co-Signing Physician Notes Attending addendum: I have physically seen this patient, have supervised the KATJA's activities, and agree with the H&P unless as otherwise noted. Assessment and Plan: Sepsis due to UTI- Follow urine culture and blood culture and sensitivity Received vancomycin IV and ceftriaxone 1 g IV from the ED Status post 2 L normal saline bolus and Tylenol 1 g IV from the ED Ceftriaxone 1 g IV daily to continue Continue rehydration with Plasma-Lyte at 100 mL/h COPD/status post right lung resection for primary adeno CA right upper lobe- Appears to be at baseline Continue usual inhalers as noted History of CVA with residual deficits/history of subdural hematoma/IVC filter Baseline right-sided weakness PT/OT PG Care Time/CCT Total # of Minutes Spent Total Time Spent with Patient: Total time spent is greater than 50% in coordination of care (as documented) at patient's floor/unit and/or counseling patient: C[place] [address] INT INP/OBS CARE 3/75MIN Patient Type Established Medical Decision Making High Complexity Diagnoses Sepsis A41.9 UTI (urinary tract infection) N39.0 COPD (chronic obstructive pulmonary disease) J44.9 H/O: stroke with residual effects I69.30
[2023-06-29] MEDS: VANCOMYCIN HCL 1,250 MG in SODIUM CHLORIDE 0.9% 500 ML IV ONE (19:16)
[2023-06-29 19:23] LABS: Mucus Urine Present (None Prsent)
[2023-06-29 19:24] LABS: Bacteria Urine Automated 3+ (Negative)
[2023-06-29] MEDS: PLASMA-LYTE A 1,000 ML IV SCH (21:18)
[2023-06-29] MEDS: TOPIRAMATE 50 MG TAB PO SCH (23:10)
--- OUTSIDE RECORDS SUMMARY | 2023-06-30 03:57 | External Medical Summary | Continuity of Care Document ---
Author Name Unknown Organization [facility] [id number] Address [address] [place] [id number] Care Team Providers Care Complaint Clerk Name Role Phone Andrew Rodriguez Primary Care Physician [phone] Encounter [facility] [id number] Date(s): 06/03/23 - 06/03/23 [facility] [address] [address] [id number] [facility] Sports Medicine [address] [place] [id number] Encounter Diagnosis Myofascial muscle pain(Discharge Diagnosis) - 06/03/23 Discharge Disposition: Home or Self Care Attending Physician: GEOVANNA Barnes, Sydni Michelle Allergies, Adverse Reactions, Alerts Substance Reaction Severity Status phenylephrine Nausea Hives Active phenylpropanolamine Hives Active oral contrast dye Nausea Hives Active penicillins Hives Vomiting Active sulfa drugs Hives Nausea Active Trileptal Hives Nausea Active GuaiFENesin-Dextromethorphan Hives Active Augmentin unknown Active Entex rash Active Amitiza Nausea Hives Active Chantix rash Active Assessment and Plan Extracted from: Title:Orthopaedics Office Visit Note Author:Fitz palomo PA-C, Jolene Marie Date:06/03/23 1.Myofascial muscle pain Patient has been responding to trigger point injections and this last set of injection she had in given her close to 6 weeks of relief. She has started doing activities at the gym and feels this is benefiting her symptoms as well. We discussedrisk and benefits of trigger point injections. Patientgave me verbal consent and would like to proceed. I Palpated bilateral trapezius,proximalcervical paraspinal muscles, and rightsuperior rhomboid muscle. Areas were confirmed by using apressure akilah. Nursing,Felisa, was present in the room to confirm sites, injection, and patient. Areas were cleansed with alcohol, and I injected after negative aspiration with a 25-gauge 1-1/2-inch needle, 1 mL of 1% lidocaine, bilateral proximal cervical paraspinal and mid trapeziusmuscles, and right superior rhomboid muscle. Injections were well tolerated. Patient reports pain relief instantly.Patient will follow-up in 6 weeks or sooner for reassessment. She was advised on pacing herself at the gym and continue with stretching and exercises as tolerated. She was advised if any questions concerns to contact the office sooner. Patient verbalized understanding and is in agreement with planpatient verbalized understanding and is in agreement plan. Medications Dulera 200 mcg-5 mcg/inh inhalation aerosol Start: 03/25/16 11:17:00, 2 puff, inhaled, bid Start Date: 03/25/16 Status: Ordered Linzess 290 mcg oral capsule Start: 08/03/13 8:58:00, 1 cap, PO, Daily Start Date: 08/03/13 Status: Ordered Proventil HFA 90 mcg/inh MDI Start: 08/03/13 8:57:00, 1 puff, inhaled, qid, PRN: as needed for wheezing Start Date: 08/03/13 Status: Ordered Spiriva Start: 08/21/11 10:54:00, 18 = mcg, inhaled, Daily Start Date: 08/21/11 Status: Ordered topiramate 50 mg oral tablet Start: 04/14/23 8:35:00 EST, 1 tab, PO, bid Start Date: 04/14/23 Status: Ordered Mental Status 06/03/23 Barriers to Learning one year None evide nt Mandatory Health Literacy Documentation Yes Health Literacy Communication Barriers N ever Primary Language Honduran Problem List Condition Confirmation Course Effective Dates Status H ealth Status Informant Stroke/cerebrovascula r accident Confirmed Active Cervical disc disease Confirmed Active Common wart Confirmed Active COPD Confirmed Active Crushed nerve 1 Confirmed Active Disc 2 Confirmed Active Dystonia Confirmed Active Fibromyositis Confirmed Active Status post CVA Confirmed Active IBS (irritable bowel syndrome) Confirmed Active Intervertebral disc disorder Confirmed Active Lumbar radiculopathy Confirmed Active Migraines Confirmed Active Myofascial pain Confirmed Active NECK PAIN Confirmed Active Smoking cessation behavior Confirmed Active Tobacco abuse Confirmed Active Whiplash injury to neck Confirmed Active 1in neck 2protruded disc in neck Diagnosis Diagnosis Type Effective Dates Health Status Clinical Service Informant Myofascial muscle pain Discharge Diagnosis 06/03/23 Procedures Procedure Date Related Diagnosis Body Site Status Lobectomy of lung 07/19/13 Complet ed IVC - Insertion of inferior vena caval filter 04/24/13 Completed Tubal ligation 1985 Completed Tonsillectomy 1975 Completed repair of brain aneurysm 1 Completed 2012 Social History Social History Type Response Smoking Status Never smoked cigaret mayelin Sex Outpatient Note * GEOVANNA Barnes, Sydni Michelle: PERFORM Event Display: .Outpt Note Authored Date: [id number] Primary Care Provider MD Rodriguez Dennis A Chief Complaint trigger points 0/8/10 History of Present Illness Patient is a 58-year-old female who is a known patient to the office. She has a history of myofascial pain. She is following up fortrigger point injections. Her last set of injections was on04/14/2023. She states she just recently the past 2 to 3 days started to have some pain. She states she has been responding very well and doing well since her last set of injections. She also notes that she started going to the gym and doing exercises which she feels is helping her greatly.She does complain of some tightness in her neck and shoulder area. Shewould like to proceed withtrigger point injections today. Shewill take Motrin on occasion. Shedenies any fall or injury, fever, chills, chest pain or shortness of breath. She quantifies her pain as 8/10 current, 0/10 best, 10/10 worse. Review of Systems Please refer to HPI Physical Exam Patient is seated comfortably in exam chair. She is alert and oriented x 3 no acute distress pleasant and conversive. Skin was inspected and previous injection sitesare clean, dry and intact.She does have palpable trigger points over the bilateralproximal cervical paraspinals andbilateral mid trapeziusand rightrhomboidsuperior aspect. Her sensation is intact over these areas. Assessment/Plan 1.Myofascial muscle pain Patient has been responding to trigger point injections and this last set of injection she had in given her close to 6 weeks of relief. She has started doing activities at the gym andfeels this is benefiting her symptoms as well. We discussedrisk and benefits of trigger point injections. Patientgave me verbal consent and would like to proceed. I Palpated bilateral trapezius,proximalcervical paraspinal muscles, and rightsuperior rhomboid muscle. Areas were confirmed by using apressure akilah. Nursing,Felisa, was present in the room to confirm sites, injection, and patient. Areas were cleansed with alcohol, and I injected after negative aspiration with a 25-gauge 1-1/2-inch needle, 1 mL of 1% lidocaine, bilateral proximal cervical paraspinal and mid trapeziusmuscles, and right superior rhomboid muscle. Injections were well tolerated. Patient reports pain relief instantly.Patient will follow-up in 6 weeks or sooner for reassessment. She was advised on pacing herself at the gym and continue with stretching and exercises as tolerated. She was advised if any questions concerns to contact the office sooner. Patient verbalized understanding and is in agreement with planpatient verbalized understanding and is in agreement plan. Problem List/Past Medical History Ongoing Cervical disc disease Common wart COPD Crushed nerve Disc Dystonia Fibromyositis IBS (irritable bowel syndrome) Intervertebral disc disorder Lumbar radiculopathy Migraines Myofascial pain NECK PAIN Smoking cessation behavior Status post CVA Stroke/cerebrovascular accident Tobacco abuse Whiplash injury to neck Procedure/Surgical History Lobectomy of lung (07/19/2013)IVC - Insertion of inferior vena caval filter (04/24/2013)Tubal ligation (1985)Tonsillectomy (1975)repair of brain aneurysm Medications albuterol(Proventil HFA 90 mcg/inh MDI), 1 puff, inhaled, qid, PRN formoterol-mometasone(Dulera 200 mcg-5 mcg/inh inhalation aerosol), 2 puff, inhaled, bid linaclotide(Linzess 290 mcg oral capsule), 290 mcg= 1 cap, PO, Daily tiotropium(Spiriva), 18 mcg, inhaled, Daily topiramate(topiramate 50 mg oral tablet), 50 mg= 1 tab, PO, bid Allergies AmitizaNausea, Hives Augmentinunknown Chantixrash Entexrash GuaiFENesin-DextromethorphanHives TrileptalHives, Nausea oral contrast dyeNausea, Hives penicillinsHives, Vomiting phenylephrineNausea, Hives phenylpropanolamineHives sulfa drugsHives, Nausea Social History Smoking Status Never smoked cigarettes Family History Diabetes mellitus: Mother. Health Status Family Member(s) Recommendations Health Maintenance Pending(in the next year) OverDue Adult Influenza Vaccine due11/20/22and every 1year Due Adult COVID-19 Vaccination due06/03/23Unknown Frequency Adult Social Determinants of Health Screening due06/03/23Unknown Frequency Adult Tdap/Td Vaccine due06/03/23Unknown Frequency Breast Cancer Screening due06/03/23Unknown Frequency Cervical Cancer Screening due06/03/23Unknown Frequency Colorectal Cancer Screening due06/03/23Unknown Frequency Hepatitis C Screening due06/03/23One-time only Shingles Vaccine due06/03/23One-time only Due In Future Body Mass Index not due until04/14/24and every 366day Satisfied(in the past 1 year) Satisfied Body Mass Index on04/14/23.Satisfied by FRANCOIS Cotton Cassidy Electronic Signature on File Electronically Reviewed/Signed by: Sydni Barnes PA-C Author Signature Dt/Tm:06/03/2023 10:43AM Division of Sports Medicine Electronically Reviewed/Signed by: Ruben Rollins MD Cosigner Signature Dt/Tm: 06/03/2023 11:58 AM Nutrition Instructor of Orthopaedics & Rehabilitation and Physical Medicine & Rehabilitation Patient Care team information Care Team Personnel Name: MD Rollins Gregory G Position: Physician - Sports Medicine [place] Member Role: Lifetime Relationship Address: Address: [address] [address] [place] Name: MD Rodriguez Dennis A Position: Referring DIRECT Member Role: Primary Care Provider Address: Address: [address] [place] [address] [place] Name: MD Chung Eugene J Position: Physician - Vascular Surg Member Role: Lifetime Relationship Address: Address: [address] [address] [place] Care Team Related Persons Name: SONYA RIVAS Address: home [address] [place], [place] [id number] Name: ABDON RIVAS Address: [facility] Address: home [address] [place], [place] [id number]
--- OUTSIDE RECORDS SUMMARY | 2023-06-30 03:57 | External Medical Summary | Summary of Care ---
Author Name Unknown Organization [facility] Address [address] [facility] [address] Phone [phone] Care Team Providers Care Tag And Label Cutter Name Role Phone Roxanne Kearney PA-C Primary Care Provide r Reason for Visit * Reason Onset Date Comments Pre Op Discussion 05/12/2023 Encounter Details Date Type Department Care Team (Late st Contact Info) Description 05/12/2023 Telephone OR [facility], Operating Room [facility] [address] [place] [address] Dot Hernández MD [address] [place] [id number] Pre Op Discussion Allergies Active Allergy Reactions Criticality Noted Date Comments Lubiprostone Edema Other,Hives 05/26/2010 ? SOB Amoxicillin-Pot Clavulanate Hives 07/06/19 14 Entex 07/06/2013 Guaifenesin Hives 01/29/2009 Iodinated Contrast Media Hives 08/07/2008 Penicillins Hives 08/07/2008 Phenylephrine Hcl Unknown 01/29/2009 Phenylpropanolamine Hcl Hives 01/29/2009 Sulfa Antibiotics Hives,Nausea/vomit ing 08/07/2008 Trileptal Unknown 01/29/2009 Varenicline 09/18/2020 Other reaction(s): rash documented as of this encounter (statuses as of 05/13/2023) Medications Medication Sig Dispensed Refills Start Date End Date Status SPIRIVA HANDIHALER 18 MCG IN CAPS daily 0 Active VENTOLIN HFA 108 (90 BASE) MCG/ACT IN AERS 4 times a day as needed 0 Active TOPAMAX 200 MG PO TABS one tablet twice daily 0 Active LINZESS 290 MCG PO CAPSIndications:Chron ic constipation 1 CAPSULE DAILY 30 Cap 12 12/13/2013 Active Mometasone Furo-Formoterol Fum (DULERA) 100-5 MCG/ACT Inhaler Inhale 2 Puffs by mouth 2 times a day. 0 Active Polyethylene Glycol 3350 17 GM Oral Packet (Miralax) Take 17 g by mouth at bedtime. 0 Active Cetirizine-Pseudoephe drine ER 5-120 MG Tablet Extended Release 12 Hour (ZyrTEC-D Allergy & Congestion) Take 1 Tab by mouth 2 times a day. 0 Active Fluticasone Propionate 50 MCG/ACT Nasal Suspension (Flonase Allergy Relief) Administer 1 Doland into nostril daily. 0 Active documented as of this encounter (statuses as of 05/13/2023) Active Problems Problem Noted Date Diagnosed Date Abnormal x-ray 09/22/2011 Internal hemorrhoids 07/08/2010 Feces contents abnormal 05/26/2010 Irritable bowel syndrome 01/09/2010 Anal spasm 01/09/2010 Benign neoplasm of colon 08/07/2008 Overview: hyperplastic polyp, poor prep, recommend f/u in 1 year Other constipation Asthma in COPD Other syndromes affecting cervical region Overview: nerve issue documented as of this encounter (statuses as of 05/13/2023) Immunizations Name Administration Dates Next Due Pneumococcal Polysaccharide PPV23 (Pneumovax) Seasonal Influenza, Split, IIV3, With Preserve, Inj 03/12/2009 documented as of this encounter Social History Tobacco Use Types Packs/Day Years Used Date Smoking Tobacco: Former Cigarettes 1 30 Q uit: 04/19/2013 Smokeless Tobacco: Never Alcohol Use Standard Drinks/Week Comments No 0 (1 standard drink = 0.6 oz pur e alcohol) Sex and Gender Information Value Date Recorded Sex Assigned at Not on file Gender Identity Not on file Sexual Orientation Not on file Job Start Date Occupation Industry Not on file Not on file Not on file documented as of this encounter Miscellaneous Notes * Telephone Encounter - Hazel Jacobs OSA - 05/13/2023 2:10 PM EST Pt was called and lmm and removed from schedule * Telephone Encounter - Tanja Mcdowell RN - 05/13/2023 7:51 AM EST Patient is scheduled for Colonoscopy 05/14/[address] Hernández, Unable to reach the patient or contact numbers after multiple attempts. Thank you, Tanja documented in this encounter Plan of Treatment Upcoming Encounters Date Type Department Care Team (Late st Contact Info) Description 05/14/2023 Hospital Encounter ENDO [facility], Endoscopy Room [facility] [address] [facility] [place] [id number] Dot Hernández MD [address] [place] [address] Scheduled Procedures Name Priority Associated Diagnoses Date/Ti me COLONOSCOPY FLEXIBLE PROXIMA L DIAGNOSTIC Recall History of colonic polyps Health Maintenance Due Date Last Done Comments Hepatitis B (1 of 3 - 3-dose series) 1965 Lipid Panel 1965 COVID-19 Vaccine (#1) 1965 Depression Screening 1977 HIV Screening 01/18/1980 Alpha-1 Antitrypsin 1983 Hepatitis C Screening 1983 O2 ASSESSMENT COMPLETED IN PAST YEAR FOR COPD 1983 DTaP,Tdap,and Td Vaccines (1 - Tdap) 01/18/1984 Pap Smear 1986 Cervical Cancer Screening 1995 HPV/Co-Test 1995 Mammogram 2005 Pneumococcal Vaccine: Pediatrics (0 to 5 Years) and At-Risk Patients (6 to 64 Years) (2 - PCV) 03/12/2010 03/12/2009 LUNG CANCER SCREENING - USE SMARTSET 78033 2015 03/15/2012 Zoster Vaccines (1 of 2) 2015 *COPD SEVERITY VERIFIED BY PFT 04/08/2017 *SPIROMETRY ONCE FOR ASTHMA-ADULT 04/16/2022 COLONOSCOPY-EVERY 2 YRS AGES 18-100 10/29/2022 10/29/2020, 10/29/2020, 06/13/2010, Additional history exists Influenza Vaccine (FLU shot) (#1) 2023 03/12/2009 COLONOSCOPY-EVERY 3 YRS AGES 18-100 Discontinued 10/29/2020, 10/29/2020, 06/13/2010, Additional history exists GARDASIL-HPV IMMUNIZATION SERIES Aged Out No longer eligible based on patient's age to complete this topic MENINGOCOCCAL (MENACTRA/MENVEO) Aged Out No longer eligible based on patient's age to complete this topic documented as of this encounter Medical Devices Not on filedocumented as of this encounter Care Teams Tag And Label Cutter Relationship Specialty Start Date End Date Roxanne Kearney PA-C [address] [place] [address] [place] [id number] PCP - General Physician Dining Room Maid 09/08/22 documented as of this encounter
[2023-06-30 04:43] LABS: BUN Creatinine Ratio 25.4 (10-20); Calcium 7.9 mg/dl (8.6-10.3); Est GFR (African American) 112.3 ml/min; Est GFR (Non-African American) 96.9 ml/min; Potassium 3.3 mmol/L (3.5-5.1)
[2023-06-30 04:57] LABS: Basophils # (auto) 0.03 K/uL (0.00-0.20); Basophils % (auto) 0.4 %; Eosinophils # (auto) 0.02 K/uL (0.00-0.50); Eosinophils % (auto) 0.3 %; Hematocrit (blood only) 30.8 % (37.0-47.0); Hemoglobin 10.4 g/dl (12.0-16.0); Immature Granulocytes # (auto) 0.05 K/uL (0.01-0.20); Immature Granulocytes % (auto) 0.7 %; Mean Corpuscular Hemoglobin 28.3 pg (25.0-34.0); Mean Corpuscular Hgb Conc 33.8 g/dL (32.0-36.0); Mean Corpuscular Volume 83.7 fL (80.0-100.0); Mean Platelet Volume 10.3 fL (9.4-12.4); Monocytes # (auto) 0.68 K/uL (0.11-0.59); Monocytes % (auto) 9.1 %; Neutrophils # (auto) 5.51 K/uL (1.40-6.50); Neutrophils % (auto) 73.5 %; Platelet Count 144 K/uL (130-400); RDW Coefficient of Variation 14.8 % (11.5-14.5); RDW Standard Deviation 45.4 fL (36.4-46.3); Red Blood Count 3.68 M/uL (4.20-5.40); White Blood Count 7.49 K/ul (4.8-10.8)
--- NOTE | 2023-06-30 07:43 | Hospitalist Progress Note ---
Date of Service June 30, 2023 Assessment & Plan (1) Sepsis: Plan: - SIRS + on admission with tachycardia and fever - Mildly hypotensive (90s/60s), but MAP>65 -Currently hemodynamically stable, with HR WNL, and stable on RA - UA with concern for UTI, denies urinary symptoms but does have right sided flank pain - Continue to follow blood and urine cultures - Continue ceftriaxone pending cultures, no prior culture for comparison -S/P 2L NSS in the ED, plan to continue plasmalyte @100ml/hr (2) UTI (urinary tract infection): Plan: -Plan as per above - Continue ceftriaxone, follow cultures (3) COPD (chronic obstructive pulmonary disease): Plan: -Stable on RA -Continue home breathing treatments -Incentive spirometry (4) H/O: stroke with residual effects: Plan: -Baseline right sided weakness from previous non-traumatic subdural hematoma -Has IVC filter in place due to this hx -Fall precautions -PT/OT consults Plan Diet: Heart Healthy Code: Full VTE Prophylaxis: Lovenox Admission and Anticipated Discharge Date Admission Date: June 29, 2023 Supervising Physician Co-Signing Physician Notes Attending Physician Supervision Note: I independently interviewed and examined the patient and verified the vazquez history and physical, reviewed labs and image studies and agree with findings and care plan noted above. In addition - right flank pain - chronic since after lung surgery. less concern of pyelonephritis. CT with no lida-nephric stranding. follow. Subjective Pt seen at bedside this morning. Complaining of right sided flank pain. Denies fever, chills, abdominal pain. Denies urinary symptoms; frequency, dysuria, hematuria. Review of Systems Review of Systems: As per above Physical Exam Physical Exam: Constitutional: well-appearing, no acute distress HEENT: NCAT, no conjunctival injection CV: regular rhythm, no murmur appreciated, extremities well-perfused, no LE edema Resp: CTABL, no wheezes/rales/rhonchi appreciated, no increased work of breathing GI: soft, nondistended, nontender, + CVA tenderness on right MSK: no gross deformities appreciated Skin: warm, dry, no rash appreciated Neuro: alert, oriented Results & Data Results & Data Vital Signs (Past 12 Hours) Vital Signs Temp Pulse Pulse Resp BP Pulse Ox O2 Del Method 06/30/23 07:12 76 06/30/23 07:06 79 16 103/53 L 97 Room Air 06/30/23 00:37 74 06/29/23 23:20 36.6 C 83 20 93/55 L 97 Room Air 06/29/23 22:32 85 20 92/54 L 92 Room Air 06/29/23 21:36 84 20 103/55 L 96 Room Air Resident Activity Tracking Resident Involvement: Resident Care Provided Care Provided: Adult Hospital Medicine
[2023-06-30] MEDS: UMECLIDINIUM BROMIDE 62.5MCG/BLISTER 7 PUFFS/INHALER INH SCH (09:30)
[2023-06-30] MEDS: FLUTICASONE/VILANTEROL 100/25MCG 14 PUFFS/INHALER INH SCH (09:31)
[2023-06-30] MEDS: ENOXAPARIN INJ 40 MG/0.4 ML SYR SQ SCH (16:15)
[2023-06-30] MEDS: cefTRIAXone SODIUM 2,000 MG in DEXTROSE 5 % MINI-B 50 ML IV SCH (17:55)
[2023-06-30] MEDS: ALBUTEROL HFA 8 GM INHALER INH PRN (19:44)
--- NOTE | 2023-06-30 20:15 | Billing Data ---
Date of Service June 30, 2023 Coding Level of Care Code 93786 INT INP/OBS CARE
[2023-06-30] MEDS: ACETAMINOPHEN 325 MG TAB PO PRN (22:21)
[2023-07-01 06:50] LABS: BUN Creatinine Ratio 22.2 (10-20); Basophils # (auto) 0.03 K/uL (0.00-0.20); Basophils % (auto) 0.7 %; Calcium 8.2 mg/dl (8.6-10.3); Creatinine Clr Calc Pharmacy 78.9 ml/min; Eosinophils # (auto) 0.12 K/uL (0.00-0.50); Eosinophils % (auto) 2.9 %; Est GFR (Non-African American) 92.3 ml/min; Hematocrit (blood only) 31.3 % (37.0-47.0); Hemoglobin 10.2 g/dl (12.0-16.0); Immature Granulocytes # (auto) 0.04 K/uL (0.01-0.20); Lymphocytes # (auto) 1.37 K/uL (1.20-3.40); Mean Corpuscular Hemoglobin 27.5 pg (25.0-34.0); Mean Corpuscular Hgb Conc 32.6 g/dL (32.0-36.0); Mean Corpuscular Volume 84.4 fL (80.0-100.0); Mean Platelet Volume 10.1 fL (9.4-12.4); Monocytes # (auto) 0.41 K/uL (0.11-0.59); Monocytes % (auto) 9.9 %; Neutrophils # (auto) 2.18 K/uL (1.40-6.50); Neutrophils % (auto) 52.5 %; Platelet Count 176 K/uL (130-400); Potassium 3.4 mmol/L (3.5-5.1); RDW Coefficient of Variation 14.9 % (11.5-14.5); RDW Standard Deviation 46.2 fL (36.4-46.3); Red Blood Count 3.71 M/uL (4.20-5.40); White Blood Count 4.15 K/ul (4.8-10.8)
--- NOTE | 2023-07-01 14:07 | Discharge Summary ---
Date of Service July 01, 2023 Admission HPI Per Admitting Provider Mary is a 58 year old female with a PMH significant for severe COPD, Adenocarcinoma of the lung status post right upper lobectomy 07/19/2013, CVA with right upper extremity residual deficit, previous subdural hematoma with residual right sided weakness, previous IVC filter placement who presented to the [facility] ED on 06/29/23 with complaints of feeling generally fatigued and unwell. She was noted to be febrile on arrival at 38.1C with a BP of 97/59, HR of 124, but stable on RA. Labs were significant for a leukocytosis of 11.5 with neutrophil predominance of 10, lactate WNL, procal of 4.66, full respiratory biofire negative, and UA with turbid urine, 5-10 WBC, and 3+ bacteria. Chest xray was negative for acute findings. CT of the abd/pelvis wo con (No con due to contrast allergy hx) was read as "1. No definite bowel wall thickening or obstruction. 2. Normal appendix. 3. No hydronephrosis. 4. Postoperative changes again noted within the right lung base with a trace right pleural effusion. 5. Emphysema.". Prior to admission blood/urine cultures were collected. The patient was given 2L NSS, 1gm IV tylenol, and a dose of Ceftriaxone and Vancomycin prior to admission. At the time of the exam the patient was sitting in bed in no acute distress. She states that she had been in her normal state of health when she developed generalized body aches, fatigue, and her typical migraine symptoms. Her migraine symptoms subsequently resolved but her other symptoms continued. She has had poor oral intake over the past 4 days. She did not take her temperature at home. She denies recent neck pain/stiffness, back pain, chest pain, increased SOB compared to baseline, new cough, abd pain, nausea, vomiting, dysuria hematuria, increased urinary frequency, skin ulcers/wounds, LE swelling, and recent trauma. She is a full code and would want her to make medical for her if she cannot make them herself. Please refer to Dr. Duque's attestation for any changes to the treatment plan Principal Diagnosis Weakness, UTI Discharge Exam Constitutional: well-appearing, no acute distress HEENT: NCAT, no conjunctival injection CV: regular rhythm, no murmur appreciated, extremities well-perfused, no LE edema Resp: CTABL, no wheezes/rales/rhonchi appreciated, no increased work of br eathing GI: soft, nondistended, nontender MSK: no gross deformities appreciated Skin: warm, dry, no rash appreciated Neuro: alert, oriented, no focal neurologic deficit appreciated Discharge Data Allergies Allergy/AdvReac Type Severity Reaction Status Date / Time Iodinated Contrast Media Allergy Intermediate HIVES Verified 04/14/23 09:19 lubiprostone Allergy Intermediate HIVES Verified 04/14/23 09:19 oxcarbazepine Allergy Intermediate HIVES Verified 04/14/23 09:19 Penicillins Allergy Intermediate HIVES, Verified 04/14/23 09:19 TAKEN AT SAME TIME ENTEX phenylephrine Allergy Intermediate HIVES, Verified 04/14/23 09:19 TAKEN AT SAME TIME AUGMENTIN phenylpropanolamine Allergy Intermediate HIVES, Verified 04/14/23 09:19 TAKEN AT SAME TIME AUGMENTIN red dye Allergy Intermediate HIVES Verified 04/14/23 09:19 varenicline Allergy Intermediate HIVES Verified 04/14/23 09:19 sulfamethoxazole Allergy Mild GI UPSET Verified 04/14/23 09:19 trimethoprim Allergy Mild HIVES Verified 04/14/23 09:19 amoxicillin [From Augmentin] Allergy Verified 04/14/23 09:19 clavulanic acid Allergy Verified 04/14/23 09:19 [From Augmentin] clindamycin Allergy allergy Verified 04/14/23 09:19 Sulfa (Sulfonamide AdvReac Mild "SULFA Verified 04/14/23 09:19 Antibiotics) DRUGS": GI UPSET/HIVES doxycycline AdvReac headache Verified 04/14/23 09:19 Consultations 06/29/23 18:36 ED Decision to Admit Stat Ordered Studies 06/29/23 17:28 CT Abd and Pelvis [CT abd pelvis wo con] Stat Hospital Course (1) Sepsis: - SIRS + on admission with tachycardia and fever - Mildly hypotensive (90s/60s), s/p IVF - UA with concern for UTI, denies urinary symptoms but does have right sided flank pain - Blood and urine cultures without growth - unclear in UA was collected pre or post antibiotics, given improvement with fluids and antibiotics, plan to continue - Will transition from ceftriaxone to cefdinir for a total of 7 days (2) UTI (urinary tract infection): -Plan as per above (3) COPD (chronic obstructive pulmonary disease): -Stable on RA -Continue home breathing treatments -Incentive spirometry (4) H/O: stroke with residual effects: -Baseline right sided weakness from previous non-traumatic subdural hematoma -Has IVC filter in place due to this hx -Fall precautions -PT/OT consults Total Time Total Time Spent Total Time Spent (In Minutes): See attending attestation Discharge Plan Discharge Items Patient Disposition: Home - Self-Care Reason For Visit: SEPSIS, UTI Discharge Diagnosis: Sepsis Activity: Per Instructions section Non-emergency contact: Primary Care Provider Call non-emergency contact if: you have any medication questions and your symptoms worsen Follow-up/Referrals: Carissa Wu MD [Primary Care Provider] - Diet: Regular Addtl Attending Provider Instructions: You were admitted with concern for low blood pressure, weakness, fever. We started you on fluids and an antibiotic and we saw improvement in your symptoms. We are going to send you home on an antibiotic, cefdinir. Given all your allergies, we picked this antibiotic because you have taken it in the past. You should take 1 300mg tablet twice a day (every 12 hours) and will be due for your next dose tonight. Please also make sure that you are drinking plenty of fluids. We have requested a follow up appointment with your primary care doctor. They should reach out to you to schuedule an appointment, but if you don't hear from them please call their office to make an appointment. Pending Studies at Discharge: No Stand-Alone Forms: My [facility] [place] [employer], Smoking Cessation Medications and DC Order Prescriptions: New cefdinir 300 mg capsule 300 mg PO BID 5 Days Qty: 10 0RF Continued albuterol sulfate [Ventolin HFA] 90 mcg/actuation HFA aerosol inhaler 2 puff INH QID PRN (Reason: shortness of breath or wheezing) Qty: 3 3RF Spiriva with HandiHaler 18 mcg capsule, w/inhalation device 1 cap inhalation DAILY Qty: 1 5RF linaclotide 290 mcg capsule 290 mcg PO DAILY Qty: 90 1RF topiramate 50 mg tablet 50 mg PO BID (DME) Flutter Valve Device See Rx Instructions .MEDSUPPLY Qty: 1 0RF Rx Instructions: Use it every 6 hours when awake. cetirizine [Zyrtec] 10 mg tablet 10 mg PO DAILY fluticasone propionate 50 mcg/actuation spray,suspension 2 sprays INTNAS DAILY Advair HFA 230-21 mcg/actuation HFA aerosol inhaler 2 puff inhalation BID Qty: 12 12RF Discharge Orders: Discharge Order (Routine); Ordered 07/01/23 Ordered By: Tashia Conte/Other Patient Handouts: Urinary Tract Infections in Women, Sepsis Admission Data Admit Date/Time: 06/29/23 19:50 Attending Provider: Arleth Simon Admit Provider: Jacky Duque Primary Care Provider: Carissa Wu Other Providers: Jacky Duque Other Interventions: Discharge Summary Assessment (RN) Last Done: 07/01/23 13:54 Supervising Physician Co-Signing Physician Notes Attending Physician Supervision Note: I independently interviewed and examined the patient and verified the vazquez hi story and physical, reviewed labs and image studies and agree with findings and care plan noted above. SIRS from possible UTI - presented with feeling sleeping and tired for few days. febrile on admission, lower systolic BP, tachycardic and mild rise in wbc. procalcitonin elevated. normal lactate. Unclear if urine sample was collected after IV dose of antibiotics. Though both blood and urine cultures came back negative will finish the course of abx for possible complicated UTI due to her presentation and elevated procalcitonin which could possibly be false positive. Right flank pain is ch ronic and not concerning of pyelonephritis.
[2023-07-03 02:36] LABS: A calco-baum cmplx NotReported Not Detected (NotDetected); Bact fragilis Not Reported Not Detected (NotDetected); Blood Culture Id Panel PCR Panel Negative (NotDetected); C auris Not Reported Not Detected (NotDetected); Calbicans Not Reported Not Detected (NotDetected); Candida glabrata Not Reported Not Detected (NotDetected); Candida krusei Not Reported Not Detected (NotDetected); Cneoformans/gatti Not Reported Not Detected (NotDetected); Cparapsilosis Not Reported Not Detected (NotDetected); E cloacae compx Not Reported Not Detected (NotDetected); Efaecalis Not Reported Not Detected (NotDetected); Efaecium Not Reported Not Detected (NotDetected); Enterobacterales Not Reported Not Detected (NotDetected); Escherichia coli Not Reported Not Detected (NotDetected); H influenzae Not Reported Not Detected (NotDetected); K aerogenes Not Reported Not Detected (NotDetected); Koxytoca Not Reported Not Detected (NotDetected); Kpneumoniae grp Not Reported Not Detected (NotDetected); Lmonocyt Not Reported Not Detected (NotDetected); N meningitidis Not Reported Not Detected (NotDetected); P aeruginosa Not Reported Not Detected (NotDetected); Proteus spp Not Reported Not Detected (NotDetected); Salmonella spp Not Reported Not Detected (NotDetected); Smarcescens Not Reported Not Detected (NotDetected); Staph lugdunensis Not Reported Not Detected (NotDetected); Staph spp. Not Reported Not Detected (NotDetected); Staphaureus Not Reported Not Detected (NotDetected); Staphepi Not Reported Not Detected (NotDetected); Stenmaltophilia Not Reported Not Detected (NotDetected); Strep agal(GrpB) Not Reported Not Detected (NotDetected); Strep pneum Not Reported Not Detected (NotDetected); Strep pyog (GrpA) Not Reported Not Detected (NotDetected); Strep spp Not Reported Not Detected (NotDetected)
--- NOTE | 2023-07-03 16:58 | Communication Note ---
Date of Service: July 03, 2023 Received a message about positive blood cultures at 4.45pm today. Reviewed chart - both blood cultures with Gram negative bacilli. Spoke to patient about coming back to ED for admission and IV antibiotics - Patient declined and wanted to wait till wednesday to have it addressed by her PCP. She denied any fever, chills, has been feeling better since discharge. Patient will come back to ED if she has recurrance of symptoms. I informed her PCP Dr. Wu and she will follow up with patient on wednesday.
== END 2023-07-01 14:13 | disposition home or self-care (01) | DRG 872 ==
LOC: ED 14:51 → EDINP 19:50 → SUATTDRO 19:50 → INTOOBSV 19:50 → 2N 22:06